=== PATIENT | male | born 1980 | race Caucasian/White ===

== ENCOUNTER 2019-11-10 16:50 | Outpatient (CLI) | payer BC, SELFPAY ==
--- NOTE | ~2019-11-10 | CT_ITS ---
EXAMINATION: CT brain wo con DATE: 11/10/2019 17:11 INDICATION: Headache TECHNIQUE: Computed tomography (CT) of the head was performed without intravenous contrast. The mA wa s adjusted according to patient size. Iterative reconstruction technique was employed. Exam dose: 60 5.33 mGy-cm total exam DLP. COMPARISON: None FINDINGS: No intracranial mass lesion or hemorrhage or cerebrovascular accident is evident. No midlin e shift or mass effect. No subdural or epidural hematoma. Included paranasal sinuses and mastoid air cells are normally developed and aerated. No fracture or bone destruction of the cranial vault. IMPRESSION: No significant abnormality Reviewed, dictated and finalized at Location [facility]. Reviewed, dictated and finalized at location B. IMPRESSION: No significant abnormality
== END 2019-11-10 16:51 | disposition home or self-care (01) ==
PROVIDERS: PCP Family Medicine; Visit Provider Family Medicine
DX: R51.9 Headache, unspecified (principal)
CPT/HCPCS: 70450

== ENCOUNTER 2020-04-17 15:31 | Outpatient (CLI) | payer BC, SELFPAY ==
--- NOTE | ~2020-04-17 | XR_ITS ---
XR abdomen/kub 1V 04/17/2020 16:02 Indication: Left-sided abdomen pain Procedure: KUB Comparison: No prior studies for comparison. Findings: Bowel gas pattern is nonobstructive. There are pelvic phleboliths. No definite renal stones . No acute osseous abnormality. There is levoscoliosis. Impression: 1: Nonobstructive bowel gas pattern. Reviewed, dictated and finalized at location A. [facility] Impression: 1: Nonobstructive bowel gas pattern.
== END 2020-04-17 15:32 | disposition home or self-care (01) ==
PROVIDERS: PCP Family Medicine; Visit Provider Family Medicine
DX: R10.9 Unspecified abdominal pain (principal)
CPT/HCPCS: 74018

== ENCOUNTER 2022-11-12 06:01 | Inpatient (IN) | payer OTHER, SELFPAY ==
[2022-11-12] VITALS (24 sets, daily range): BP systolic 121–159; BP diastolic 57–121; PULSE 65–94; RESP 8–24; TEMP 36.1–36.6; O2SAT 83–97; BMI 58.6
--- NOTE | ~2022-11-12 | XR_ITS ---
EXAMINATION: XR chest 1V portable Exam Date/Time: 11/15/2022 16:58 CDT HISTORY: congestion Comparison: 11/12/2022 x-ray and chest CT. RESULT: Lines, tubes, and devices: None. Lungs and pleura: Low volumes with crowding. Cardiomediastinal silhouette: Stable. Other: No acute osseous or upper abdominal finding. IMPRESSION: No acute cardiopulmonary process. The pulmonary opacities noted in the prior CT are not visible radio graphically. Reviewed, dictated and finalized at location K. IMPRESSION: No acute cardiopulmonary process. The pulmonary opacities noted in the prior CT are not visible radiographically.
--- NOTE | ~2022-11-12 | XR_ITS ---
Clinical Indication: Shortness of breath AP and lateral views of the chest: Comparison: 05/31/2012 Findings: There is an area of focal increased density at the left lung apex region. No other pulmonar y abnormality evident.. Cardiomediastinal silhouette is within normal limits. Bones and soft tissues are unremarkable. Impression: Focal area of increased density left lung apex. Pulmonary nodule is not excluded, possibly measuring up to 1.[address] recommended for further evaluation. Reviewed, dictated and finalized at location M. Impression: Focal area of increased density left lung apex. Pulmonary nodule is not exclude d, possibly measuring up to 1.[address] recommended for further evaluation .
--- NOTE | ~2022-11-12 | CT_ITS ---
EXAMINATION: CT brain wo con INDICATION: Dilated and nonreactive right pupil COMPARISON: 11/12/2022 TECHNIQUE: Standard unenhanced head CT. The dose-length product (DLP) was 605.33 mGy-cm. The mA was a djusted according to patient size. Iterative reconstruction technique was employed. FINDINGS: No intracranial hemorrhage, acute infarction, or abnormal mass lesion. The ventricles are n ormal. No abnormal mass effect or midline shift. The rosen-white matter differentiation is normal. The basal cisterns are patent. The orbits are normal. There is a polyp or mucous retention cyst of the l eft maxillary sinus. IMPRESSION: 1. No acute intracranial abnormality. Reviewed, dictated and finalized at location F.
--- NOTE | ~2022-11-12 | US_ITS ---
EXAMINATION: US renal BI DATE: 11/14/2022 08:52 INDICATION: Acute renal injury TECHNIQUE: Multiple ultrasound grayscale images of the kidneys were obtained. COMPARISON: None. FINDINGS: The right kidney measures 9.6 x 5.4 x 4.9 cm. The left kidney measures 11.9 x 5.8 x 5.8 cm. The kidne ys demonstrate normal echogenicity. There is no hydronephrosis in either kidney. No stones identifie d. The bladder is normal. IMPRESSION: 1. Normal kidneys without hydronephrosis. Reviewed, dictated and finalized at location A.
--- NOTE | ~2022-11-12 | CT_ITS ---
Clinical Indication: Hemoptysis CT Scan of the Chest with Contrast: Technique: Contiguous sections were acquired throughout the chest after intravenous administration of 75 cc of Omnipaque 350. Dose reduction technique was used on this scan by utilizing automated exposu re control and iterative reconstruction technique. The dose-length product (DLP) was 896.60 mGy-cm. Findings: There is no evidence of any significant mediastinal, hilar or axillary lymphadenopathy. Mediastinal s oft tissues and vascular structures appear unremarkable. There is no evidence of pleural or pericardial effusion. There are tree-in-bud opacities and centrilobular nodules, predominantly in the right upper lobe. Images through the upper abdomen reveal no abnormalities. Compression fracture of T12 noted. Impression: Tree-in-bud opacities and centrilobular nodules, predominantly in the right upper lobe, consistent wi th small airways infectious process. T12 compression fracture, somewhat age indeterminate, possibly acute. Reviewed, dictated and finalized at [facility]. Impression: Tree-in-bud opacities and centrilobular nodules, predominantly in the right upp er lobe, consistent with small airways infectious process. T12 compression fracture, somewhat age indeterminate, possibly acute.
--- NOTE | ~2022-11-12 | XR_ITS ---
Portable chest x-ray Comparison: 11/16/2022 Clinical History: CHF Findings: Probable minimal right basilar atelectasis. Left lung clear. Cardiomediastinal silhouette is stable. Bones and soft tissues are unremarkable. Impression: Probable minimal right basilar atelectasis, otherwise clear lungs. Reviewed, dictated and finalized at location . Impression: Probable minimal right basilar atelectasis, otherwise clear lungs.
--- NOTE | ~2022-11-12 | CT_ITS ---
EXAMINATION: CT facial bones wo con DATE: 11/12/2022 15:16 INDICATION: facial swelling, somnolence . TECHNIQUE: Computed tomography (CT) of the facial bones and maxillofacial region was performed withou t intravenous contrast. Automated exposure control and iterative reconstruction technique were employ ed. The dose-length product was 800.04 mGy-cm. COMPARISON: None. FINDINGS: Soft Tissues: No significant superficial soft tissue swelling. Facial bones: No acute fracture. No lytic or blastic process. Eyes: The globes are intact. The soft tissue planes of the orbits are maintained. Paranasal Sinuses: Left maxillary mucosal retention cyst/polyp, the remaining visualized aerated spa veronica are clear. Foreign Bodies: No radiopaque foreign bodies. Other Findings: None. IMPRESSION: No evidence of acute facial bone fracture. No CT evidence of osseous erosion/osteomyelitis Reviewed, dictated and finalized at location K.
--- NOTE | ~2022-11-12 | CT_ITS ---
EXAMINATION: CT brain wo con DATE: 11/12/2022 15:16 INDICATION: facial swelling, somnolence . TECHNIQUE: Computed tomography (CT) of the head was performed without intravenous contrast. The mA wa s adjusted according to patient size. Iterative reconstruction technique was employed. The dose-lengt h product was 681.00 mGy-cm. COMPARISON: None. FINDINGS: No acute intracranial hemorrhage or extra-axial fluid collection. No hydrocephalus, mass, or herniation. No acute ischemic infarct. Unremarkable dural venous sinus attenuation. No acute osseous abnormality. Mucosal thickening and retention cyst/polyp in the left maxillary sinus, the remaining aerated spaces are clear. IMPRESSION: No acute intracranial process. Reviewed, dictated and finalized at location K.
--- NOTE | ~2022-11-12 | XR_ITS ---
XR chest 1V portable DATE: 11/16/2022 11:06 INDICATION: Abnormal arterial blood gases. TECHNIQUE: Portable AP chest on 11/16/2022 at 1105 hours COMPARISON: 11/15/2022 portable AP chest 11/2022 CT chest FINDINGS: Cardiomegaly. Borderline pulmonary vascular congestion/redistribution. Mild infiltrate or a telectasis is suggested in the right lower lung.. IMPRESSION: Limited portable study suggesting cardiomegaly, possible mild congestive change and right lower lung infiltrate or atelectasis Reviewed, dictated and finalized at location A. IMPRESSION: Limited portable study suggesting cardiomegaly, possible mild conge stive change and right lower lung infiltrate or atelectasis
--- NOTE | ~2022-11-12 | CT_ITS ---
EXAMINATION: CTA brain carotid DATE: 11/21/2022 15:40 INDICATION: Right-sided anisocoria. TECHNIQUE: Computed tomographic angiography (CTA) of the head was performed without and with 100 mL O mnipaque-350 intravenous contrast. CTA of the neck was performed with intravenous contrast. Automated exposure control and iterative reconstruction technique were employed. The dose-length product was 1 805.20 mGy-cm. Maximum intensity projection and volume rendered 3D-reconstructions were created by casie coughlin technologist on a separate workstation. COMPARISON: Head CT 11/18/2022 FINDINGS: HEAD CTA: There is no intracranial hemorrhage, acute infarction, or abnormal intracranial mass lesion . The ventricles are normal in size. The orbits are normal. There is a mucous retention cyst in left maxillary sinus. The mastoid air cells are normal. Left vertebral artery is dominant. There is no sig nificant stenosis of basilar artery or the posterior cerebral arteries. There is no significant steno sis of the intracranial internal carotid arteries or anterior or middle cerebral arteries. Anterior c ommunicating arteries are normal. The posterior trachea there is are normal. There is no aneurysm. NECK CTA: There is mild atelectasis bilaterally. There are no pathologically enlarged lymph nodes. Th ere is no significant stenosis of the vertebral arteries. There is minimal plaque in the proximal int ernal carotid arteries. There is 0% stenosis of the proximal right internal carotid artery relative t o normal distal artery lumen diameter (NASCET criteria). There is 0% stenosis of the proximal left in ternal carotid artery relative to normal distal artery lumen diameter. There is mild cervical spondyl osis. IMPRESSION: 1. Normal brain. No aneurysm or significant intracranial arterial stenosis. 2. 0% stenosis of the proximal internal carotid arteries relative to normal distal artery lumen diame ters (NASCET criteria). Reviewed, dictated and finalized at location A. IMPRESSION: 1. Normal brain. No aneurysm or significant intracranial arterial stenosis. 2. 0% stenosis of the proximal internal carotid arteries relative to normal dis savita artery lumen diameters (NASCET criteria).
--- NOTE | 2022-11-12 06:12 | ECG_ITS ---
Measurements Intervals [place] Rate: 80 P: 40 [place]: 182 QRS: -20 QRSD: 112 T: 41 QT: 348 QTc: 403 Interpretive Statements SINUS RHYTHM POOR R-WAVE PROGRESSION NO PREVIOUS ECG AVAILABLE FOR COMPARISON Electronically Signed On 11-12-2022 15:43:33 CDT by Ana Gatica M.D.
[2022-11-12 06:26] LABS: Basophils Percent Auto 0.4 % (0.2-1.2); Eosinophils Absolute Auto 0.2 K/mm3 (0-0.3); Eosinophils Percent Auto 1.5 % (0-4.4); Hematocrit 42.1 % (42.0-52.0); Immature Granulocyte Absolute 0.05 K/mm3 (0.00-0.031); Immature Granulocyte Percent A 0.5 % (0-0.5); Lymphocytes Absolute Auto 1.01 K/mm3 (0.9-3.2); Mean Corpuscular HGB Conc 30.9 g/dl (32-36); Mean Platelet Volume 10.3 fl (7.4-10.4); Monocytes Absolute Auto 0.5 K/mm3 (0.1-0.6); Monocytes Percent Auto 5.3 % (2.6-8.5); Neutrophils Absolute Auto 8.3 K/mm3 (1.3-6.7); Neutrophils Percent Auto 82.3 % (45.5-73.1); Platelet Count Result 229 k/mm3 (150-375); Red Blood Count 4.34 M/mm3 (4.6-6.20); Red Cell Distribution Width 13.5 % (11.5-14.5); White Blood Count 10.1 K/mm3 (4.5-10.0)
[2022-11-12 06:34] LABS: Lactic Acid Reflex 2.3 mmol/L (0.7-2.0)
[2022-11-12 06:36] LABS: Alanine Aminotransferase 32 U/L (6-50); Albumin Level 4.2 g/dL (3.5-5.1); Alkaline Phosphatase 66 U/L (38-126); Anion Gap 7 mmol/L (8-16); Aspartate Amino Transferase 38 U/L (17-59); Bilirubin,Total 0.5 mg/dL (0.2-1.3); Blood Urea Nitrogen 26 mg/dL (9-20); Calcium 9.3 mg/dL (8.4-10.2); Carbon Dioxide 29 mmol/L (22-30); Chloride 102 mmol/L (98-107); Estimated CRCL calculation 72 ml/min; Estimated Glomerular Filt Rate 39; Glucose 157 mg/dL (65-110); Potassium 5.3 mmol/L (3.4-5.0); Sodium 138 mmol/L (137-145)
--- NOTE | 2022-11-12 07:42 | ED.GENADULT ---
HPI - General Adult General Chief complaint: Unspecified Stated complaint: COLD S/S Time Seen by Provider: 11/12/22 07:00 History of Present Illness HPI narrative: This is a 42-year-old male, with past history of hypertension and chronic kidney disease, who presents to the emergency department complaining of noticing bloody mucus on his pillow this morning. The patient states he went to bed in his usual state of health, when he woke this morning he found bloody mucus on his pillow. He also noticed that his eyes were puffy. He has no other complaints today. Related Data Home Medications Medication Instructions Recorded Confirmed aspirin 81 mg tablet,delayed mg 11/12/22 release atorvastatin 20 mg tablet mg 11/12/22 hydroxyzine pamoate 50 mg capsule mg 11/12/22 11/12/22 multivitamin with folic acid 400 tablet PO 11/12/22 mcg tablet (Daily-Vasu (with folic acid)) Allergies Allergy/AdvReac Type Severity Reaction Status Date / Time No Known Allergies Allergy Unverified 08/06/21 14:45 Review of Systems Review of Systems: CONSTITUTIONAL: Denies fever, chills, or sweats. EYES: Bilateral eye swelling denies visual changes, redness, or discharge. ENT: Rhinorrhea, congestion denies sore throat, or otalgia. CARDIOVASCULAR: Denies chest pain, palpitations, or edema. RESPIRATORY: Denies cough or dyspnea. GASTROINTESTINAL: Denies abdominal pain, nausea, vomiting, or diarrhea. GENITOURINARY: Denies dysuria or hematuria. SKIN: Denies rash or itching. MUSCULOSKELETAL: Denies back pain, joint pain, or myalgia. NEUROLOGIC: Denies headache, numbness, dizziness, or weakness. PSYCHIATRIC: Denies anxiety or depression. [facility] Past Medical History Medical History Essential (primary) hypertension History of narcotic addiction Major depressive disorder, recurrent, in remission Migraines Surgical History Surgical History Fracture of left forearm s/p ORIF Family History Family History Mother Diabetes mellitus Hypertension Father Hypertension Cerebrovascular accident Social History Social History Smoking packs per day: 1 Smoking cigarettes per day: 20.0 Years smoked: 14 Smoking pack-years: 14.00 Smoking status: Current every day smoker Tobacco type: cigarettes Second hand tobacco smoke exposure: No Smoking end date: 08/09/12 Alcohol intake: current Substance use: never Substance use type: does not use Other substance usage details: fentanyl last use - 10/31/22 methamphetamine last use - 11/03/22 Lack of Transportation: YES Lack of Food: Sometimes True Current Housing: I Do Not Have Housing Concerned About Future Housing: YES Difficulty Paying Gas/Electric Bills: YES Difficulty Paying for Meds: YES Currently Unemployed: YES Education: Associate Degree Difficulty w/ Childcare or Family Care: No Living arrangements: with family Occupation/Education: occupation Gender identity (if verbalized by the patient): Male Spiritual care concerns: No Exam Narrative: GENERAL: Well-developed, well-nourished, and in no acute distress. HEAD: Normocephalic, atraumatic. EYES: PERRLA and EOMI. edema of the bilateral eyes ENT: Nares clear, no rhinorrhea or epistaxis. Mucous membranes moist. Oropharynx without tonsillar hypertrophy exudate or other lesions. CHEST: Clear to auscultation. No respiratory distress. No wheezes rales or rhonchi HEART: Regular rate and rhythm. No murmur heard. Normal peripheral pulses. ABDOMEN: Soft, nontender, nondistended, normal active bowel sounds. EXTREMITIES: Normal range of motion. Trace bilateral lower extremity edema SKIN: Warm, dry, no rash. NEURO: Alert and oriented x3. Moving all 4 limbs purposefully. PSYCH:
[2022-11-12] MEDS: SODIUM CHLORIDE 0.9% IV 1,000 ML 999 ML IV CONT (07:45)
[2022-11-12 09:23] LABS: Reflex Lactic Acid Yes or No Add Lactic
[2022-11-12 09:38] LABS: Anion Gap 2 mmol/L (8-16); Blood Urea Nitrogen 29 mg/dL (9-20); Calcium 8.8 mg/dL (8.4-10.2); Carbon Dioxide 33 mmol/L (22-30); Chloride 102 mmol/L (98-107); Estimated CRCL calculation 69 ml/min; Estimated Glomerular Filt Rate 37; Glucose 113 mg/dL (65-110); Potassium 5.8 mmol/L (3.4-5.0); Sodium 137 mmol/L (137-145)
[2022-11-12 10:11] LABS: Lactic Acid 0.8 mmol/L (0.7-2.0)
[2022-11-12] MEDS: INSULIN HUMAN REGULAR (*BKC) 100 UNITS/ML 10 UNITS IV PUSH (10:36)
[2022-11-12] MEDS: CALCIUM GLUCONATE 1,000 MG/10 ML VIAL 1000 MG IV PUSH (10:37)
[2022-11-12] MEDS: DEXTROSE 50% 25 GM/50 ML SYRINGE IV PUSH (10:37)
[2022-11-12] MEDS: SODIUM BICARBONATE 8.4% 50 MEQ/50 ML SYRINGE IV PUSH (10:37)
[2022-11-12] MEDS: LABETALOL HCL 100 MG TABLET 200 MG PO ×2 (10:38→23:30)
[2022-11-12] MEDS: amLODIPine BESYLATE 5 MG TABLET 10 MG PO (10:39)
[2022-11-12] MEDS: BUPRENORPHINE HCL (*CRX) 2 MG SUBLINGUAL TABLET 4 MG PO (10:59)
[2022-11-12 11:36] LABS: Appearance Urine Cloudy (Clear); Bacteria Urine None Seen /hpf; Bilirubin Urine Negative (Negative); Blood Urine 1+ (Negative); Color Urine Yellow (Yellow); Glucose Urine UA Negative (Negative); Ketones Urine Negative (Negative); Leukocyte Esterase Ur Trace LEU/UL (Negative); Need Manual Microscopic Need Manual; Nitrate Urine Negative (Negative); Protein Urine Trace mg/dL (Negative); Urobilinogen Urine 0.2 mg/dL (<2.0)
[2022-11-12 11:58] LABS: Specific Grav Ur 1.053 (1.001-1.035); WBC Clumps Urine Present /hpf
[2022-11-12 11:59] LABS: Squamous Epithelial Cell Urine Few /hpf (Few)
[2022-11-12 12:00] LABS: Hyaline Casts Urine Present /lpf
[2022-11-12 12:01] LABS: Add Urine Microscopic? YES
--- NOTE | 2022-11-12 14:40 | PM.IMHP ---
H&P: HPI History of Present Illness Date/Time: 11/12/22 14:40 Chief Complaint: Epistaxis, Somnolence, Facial Swelling Narrative: 42-year-old male presents here facial swelling, somnolence, epistaxis With past medical history of polysubstance abuse, high blood pressure, untreated BRICE. Patient is currently being treated at [facility] for polysubstance abuse: Opiates and alcohol. He has been treated since last Thursday, 11/07. Patient reports that they recently started him on Suboxone, 1st dose was yesterday evening. Patient reports that he woke up in the middle of the night last night with a nose bleed from a bilateral nares. Some mild nausea after nose bleed and blood streaked phlegm. Has felt increasingly groggy since episode. Also noted that he has facial swelling around his eyes upper cheeks. Eyes are reddened with yellow to cream drainage. He denies any itching, tenderness, vision changes to his eyes. He reports history of opiate abuse via pills, snorting, and IVDU (last IV use was years ago). Alcohol use is 1-2 fifths daily. Review of Systems Review of Systems: He denies substance use during his admission at [facility], chest pain, palpitations, shortness of breath, fever, chills, recent illness. All systems reviewed & are unremarkable except as noted in HPI and below PMFSH Past Medical History Medical History (Updated 11/13/22 @ 01:30 by Kizzy Levin APRN) Alcohol abuse Essential (primary) hypertension History of narcotic addiction Major depressive disorder, recurrent, in remission Migraines Obstructive sleep apnea syndrome Surgical History Surgical History Fracture of left forearm s/p ORIF Family History Family History Mother Diabetes mellitus Hypertension Father Hypertension Cerebrovascular accident Social History Social History (Updated 11/13/22 @ 01:31 by Kizzy Levin APRN) Social History: Patient is currently homeless. Previously lived at [place] until he began drinking again and he lost his job. Surrogate decision maker is Missael Del Cid, brother. Full Code. Smoking packs per day: 1 Smoking cigarettes per day: 20.0 Years smoked: 14 Smoking pack-years: 14.00 Smoking status: Current every day smoker Tobacco type: cigarettes Second hand tobacco smoke exposure: No Smoking end date: 08/09/12 Alcohol intake: current Substance use: never Substance use type: does not use Other substance usage details: fentanyl last use - 10/31/22 methamphetamine last use - 11/03/22 Lack of Transportation: YES Lack of Food: Sometimes True Current Housing: I Do Not Have Housing Concerned About Future Housing: YES Difficulty Paying Gas/Electric Bills: YES Difficulty Paying for Meds: YES Currently Unemployed: YES Education: Associate Degree Difficulty w/ Childcare or Family Care: No Living arrangements: with family Occupation/Education: occupation Gender identity (if verbalized by the patient): Male Spiritual care concerns: No Meds Home Medications and Allergies Home Medications Medication Instructions Recorded Confirmed Type amlodipine 10 mg tablet See Rx Instructions .Route 08/06/21 11/12/22 Rx .COMPLEX #90 tabs sertraline 100 mg tablet 150 mg PO DAILY #135 tabs 08/06/21 11/12/22 Rx losartan 100 mg tablet See Rx Instructions .Route 11/22/21 11/12/22 Rx .COMPLEX #90 tabs labetalol 200 mg tablet See Rx Instructions .Route 07/15/22 11/12/22 Rx .COMPLEX #180 tabs buprenorphine 4 mg-naloxone 1 mg 1 film buccal BID 11/12/22 11/12/22 History sublingual film (Suboxone) buprenorphine 8 mg-naloxone 2 mg 1 film buccal PRN PRN cravings 11/12/22 11/12/22 History sublingual film (Suboxone) buspirone 10 mg tablet 10 mg PO BID 11/12/22 11/12/22 History gabapentin 300 mg capsule 300 mg DAILY 11/12/22 11/12/22
[2022-11-12 15:14] LABS: Device ROOM AIR; Fractional Inspired Oxygen 21 %; HCO3 VBG 28.6 mEq/l (24.0-30.0); PCO2 VBG 52.8 mmHg (42.0-48.0); PO2 VBG 32.3 mmHg (35.0-45.0); pH VBG 7.351 (7.300-7.400)
[2022-11-12 18:00] LABS: Alanine Aminotransferase 31 U/L (6-50); Albumin Level 4.1 g/dL (3.5-5.1); Alkaline Phosphatase 66 U/L (38-126); Anion Gap 8 mmol/L (8-16); Aspartate Amino Transferase 38 U/L (17-59); Bilirubin,Total 0.6 mg/dL (0.2-1.3); Blood Urea Nitrogen 29 mg/dL (9-20); Calcium 9.2 mg/dL (8.4-10.2); Carbon Dioxide 28 mmol/L (22-30); Chloride 102 mmol/L (98-107); Estimated CRCL calculation 66 ml/min; Estimated Glomerular Filt Rate 35; Glucose 101 mg/dL (65-110); Potassium 4.7 mmol/L (3.4-5.0); Sodium 138 mmol/L (137-145)
[2022-11-12] MEDS: BUPRENORPHINE/NALOXONE (*CRX) 4 MG/1 MG SL FILM 1 EACH SUBLINGUAL (23:30)
--- NOTE | 2022-11-12 23:32 | PCRCNOTE ---
Pt refused CPAP at this time
[2022-11-13] VITALS (17 sets, daily range): BP systolic 94–158; BP diastolic 48–93; PULSE 60–69; RESP 12–24; TEMP 36.1–36.4; O2SAT 92–98
[2022-11-13 05:10] LABS: Basophils Absolute Auto 0.1 K/mm3 (0.0-0.1); Basophils Percent Auto 0.7 % (0.2-1.2); Eosinophils Absolute Auto 0.4 K/mm3 (0-0.3); Eosinophils Percent Auto 4.7 % (0-4.4); Hematocrit 39.2 % (42.0-52.0); Hemoglobin 11.8 g/dL (14.0-18.0); Immature Granulocyte Absolute 0.03 K/mm3 (0.00-0.031); Immature Granulocyte Percent A 0.4 % (0-0.5); Lymphocytes Absolute Auto 2.93 K/mm3 (0.9-3.2); Lymphocytes Percent Auto 36.5 % (18.3-44.2); Mean Corpuscular HGB Conc 30.1 g/dl (32-36); Mean Corpuscular Hemoglobin 29.8 pg (26-34); Mean Platelet Volume 10.8 fl (7.4-10.4); Monocytes Percent Auto 12.6 % (2.6-8.5); Neutrophils Absolute Auto 3.6 K/mm3 (1.3-6.7); Neutrophils Percent Auto 45.1 % (45.5-73.1); Platelet Count Result 231 k/mm3 (150-375); Red Blood Count 3.96 M/mm3 (4.6-6.20); Red Cell Distribution Width 13.7 % (11.5-14.5)
[2022-11-13 05:23] LABS: Anion Gap 5 mmol/L (8-16); Blood Urea Nitrogen 33 mg/dL (9-20); Carbon Dioxide 31 mmol/L (22-30); Chloride 101 mmol/L (98-107); Estimated CRCL calculation 60 ml/min; Estimated Glomerular Filt Rate 31; Glucose 107 mg/dL (65-110); Potassium 4.6 mmol/L (3.4-5.0); Sodium 137 mmol/L (137-145)
[2022-11-13 05:46] LABS: Influenza A QL RT-PCR Negative (Negative); Influenza B QL RT-PCR Negative (Negative); RSV RNA, RT-PCR Negative (Negative); SARS-CoV-2 RNA PCR Negative (Negative)
[2022-11-13] MEDS: ENOXAPARIN 40 MG/0.4 ML SYRINGE SUB-Q (09:00)
[2022-11-13] MEDS: GABAPENTIN 300 MG CAPSULE PO (09:00)
[2022-11-13] MEDS: MULTIVITAMINS THERAPEUTIC TAB (*BKC) 1 TABLET PO (09:00)
[2022-11-13] MEDS: PANTOPRAZOLE SODIUM IV 40 MG VIAL IV PUSH ×2 (09:00→21:13)
[2022-11-13] MEDS: BUPRENORPHINE/NALOXONE (*CRX) 4 MG/1 MG SL FILM 1 EACH SUBLINGUAL ×2 (09:00→17:34)
[2022-11-13] MEDS: LABETALOL HCL 100 MG TABLET 200 MG PO (09:00)
[2022-11-13] MEDS: SERTRALINE HCL 50 MG TABLET 150 MG PO (09:00)
[2022-11-13] MEDS: busPIRone HCL 10 MG TABLET PO ×2 (09:01→17:34)
[2022-11-13] MEDS: LOSARTAN POTASSIUM 100 MG TABLET PO (09:01)
[2022-11-13] MEDS: amLODIPine BESYLATE 5 MG TABLET 10 MG PO (09:01)
--- NOTE | 2022-11-13 14:00 | PM.IMPN ---
Progress Note: A&P Assessment and Plan (1) CKD (chronic kidney disease): Code(s): N18.9 - Chronic kidney disease, unspecified Status: Acute (2) Polysubstance abuse: Code(s): F19.10 - Other psychoactive substance abuse, uncomplicated Status: Acute (3) Obstructive sleep apnea syndrome: Code(s): G47.33 - Obstructive sleep apnea (adult) (pediatric) Status: Acute (4) Hyperkalemia: Code(s): E87.5 - Hyperkalemia Status: Acute (5) Facial swelling: Code(s): R22.0 - Localized swelling, mass and lump, head Status: Acute Plan Patient was at [facility] getting treatment for substance abuse. Which include opiates and alcohol. He was recently started on Suboxone when he woke up in the middle night he had bleeding from his nose noticed to have blood-streaked phlegm. Is also noted to have some facial swelling and and was sent to the ED for evaluation. He has history of opiate abuse feels snorting and IV drug use. Last IV use was years ago. He drinks alcohol 1 to 2 5th daily workup revealed creatinine of 1.9 and hyperkalemia which was treated in the ER. Also had lactic acidosis 2.3. UA with WBC clumps. He has underlying BRICE and uses CPAP. CT facial bones were negative CT brain was negative. Chest x-ray showed focal area of increased density left lung apex. Pulmonary nodule is not excluded possibly measuring to [address] chest shows tree-in-bud opacities and centrilobular nodules predominantly in right upper lobe consistent with small airways infectious process. T12 compression fractures somewhat he is indeterminate possibly acute. He reports no back pain. CT head reveals mucosal thickening and retention cyst/polyp in the left maxillary sinus. Creatinine continues to increase. His baseline creatinine up to last year was 1.4. Admission creatinine of 1.9 worsened to 2.3 will start gentle fluid. Urine studies. Hold losartan start IV antibiotics to cover for pneumonia. Renal consultation ultrasound kidneys. UTI ceftriaxone negative for influenza COVID and RSV. DVT prophylaxis with Lovenox Subjective Date/time seen: 11/13/22 14:00 Interval history: Patient was at [facility] getting treatment for substance abuse. Which include opiates and alcohol. He was recently started on Suboxone when he woke up in the middle night he had bleeding from his nose noticed to have blood-streaked phlegm. Is also noted to have some facial swelling and and was sent to the ED for evaluation. He has history of opiate abuse feels snorting and IV drug use. Last IV use was years ago. He drinks alcohol 1 to 2 5th daily workup revealed creatinine of 1.9 and hyperkalemia which was treated in the ER. Also had lactic acidosis 2.3. UA with WBC clumps. He has underlying BRICE and uses CPAP. CT facial bones were negative CT brain was negative. Chest x-ray showed focal area of increased density left lung apex. Pulmonary nodule is not excluded possibly measuring to [address] chest shows tree-in-bud opacities and centrilobular nodules predominantly in right upper lobe consistent with small airways infectious process. T12 compression fractures somewhat he is indeterminate possibly acute. He reports no back pain. CT head reveals mucosal thickening and retention cyst/polyp in the left maxillary sinus. Creatinine continues to increase. His baseline creatinine up to last year was 1.4. Admission creatinine of 1.9 worsened to 2.3 will start gentle fluid. Urine studies. Start IV antibiotics to cover for pneumonia. Renal consultation ultrasound kidneys. UTI ceftriaxone negative for influenza COVID and RSV. Review of Systems Review of Systems: All systems reviewed & are unremarkable except as noted in HPI and below Exam Narrative: GENERAL: Well-developed, well-nourished, and in no acute distress. HEAD: Normocephalic, atraumatic. EYES: PERRLA and EOMI. edema of the bilateral
--- NOTE | 2022-11-13 14:40 | PM.CNNEP ---
Assessment and Plan Assessment and plan (1) ANIKET (acute kidney injury): Code(s): N17.9 - Acute kidney failure, unspecified Status: Acute Assessment and Plan: ANIKET versus progression of chronic kidney disease(?) creatinine 1.9mg/dl on admission -- up to 2.3mg/dl currently noted mild hyperkalemia as well on admission etiology? agree with holding losartan trial of IVFs (but no improvement as of yet) follow-up on urine studies and renal ultrasound does have a history of urethral stricture and obstructrion in the past UA noted - protein and blood present - r/o UTI follow trend of repeat labs and UOP (2) Stage 3a chronic kidney disease: Code(s): N18.31 - Chronic kidney disease, stage 3a Status: Chronic Assessment and Plan: creatinine running around 1.4 - 1.7mg/dl about a year ago though to be secondary to hypertension and obesity however, his known history of polysubstance abuse may have played a role (3) Hyperkalemia: Code(s): E87.5 - Hyperkalemia Status: Acute Assessment and Plan: presumably related to worsening creatinine with ARB use holding losartan s/p medical management follow trend of K+ (4) Pneumonia: Code(s): J18.9 - Pneumonia, unspecified organism Status: Acute Assessment and Plan: suggestion by CXR CT of chest with tree-in-bud opacities and centrilobular nodules, predominantly in the right upper lobe, consistent with small airways infectious process on antibiotics (5) Essential (primary) hypertension: Code(s): I10 - Essential (primary) hypertension Status: Chronic Assessment and Plan: elevated but reasonable control holding losartan on amlodipine and labetalol PRN medications follow trend of hemodynamics (6) Polysubstance abuse: Code(s): F19.10 - Other psychoactive substance abuse, uncomplicated Status: Chronic Assessment and Plan: playing a role with #1(?) supportive therapy Discussed case with Dr. Mancera. I will continue follow the patient with you while he remains hospitalized and make further recommendations as needed. Thank you for allowing me to participate in the care of this patient. History of Present Illness Reason for Consult Consult date: 11/13/22 Reason for consult: acute renal failure (on chronic kidney disease) Chief Complaint Chief complaint: HYPERKALEMIA,ANIKET History of Present Illness Narrative: The patient is a 42-year-old male with a past medical history as outlined below who presented to [facility] Emergency room due to concerns of facial swelling and lethargy. The patient was being treated at a rehab facility for his known history of polysubstance abuse which includes opioids and alcohol. He has been in the rehabilitation facility since last week. He was recently started on Suboxone for treatment of his polysubstance abuse. Apparently, the night before admission, he woke up in the middle night with epistaxis from both his nares. This seemed to resolve on its own but he had some mild nausea when this occurred and some blood-streaked sputum. Since that time, he has felt increasingly groggy and fatigue. He also reports increased facial swelling particularly around his eyes and upper cheeks. There was apparently a yellowish discharge from the corner of his eyes as well. Given these constellation of symptoms and issues, he was transferred to the emergency room for further assessment. Workup and evaluation emergency room demonstrated the patient be hemodynamically stable if not a bit hypertensive but in no acute distress. Routine blood tests ere significant for an elevated potassium level in association with a elevated BUN and creatinine. His BUN and creatinine was somewhat higher than what is on record on [facility] he has never had any issues or problems with hyperkalemia at that the patient is aware. He subsequently receiv
--- NOTE | 2022-11-13 14:40 | P.CONNP_ITS ---
Assessment and Plan Assessment and plan (1) ANIKET (acute kidney injury): Code(s): N17.9 - Acute kidney failure, unspecified Status: Acute Assessment and Plan: * ANIKET versus progression of chronic kidney disease(?) * creatinine 1.9mg/dl on admission -- up to 2.3mg/dl currently * noted mild hyperkalemia as well on admission * etiology? * agree with holding losartan * trial of IVFs (but no improvement as of yet) * follow-up on urine studies and renal ultrasound * does have a history of urethral stricture and obstructrion in the past * UA noted - protein and blood present - r/o UTI * follow trend of repeat labs and UOP (2) Stage 3a chronic kidney disease: Code(s): N18.31 - Chronic kidney disease, stage 3a Status: Chronic Assessment and Plan: * creatinine running around 1.4 - 1.7mg/dl about a year ago * though to be secondary to hypertension and obesity * however, his known history of polysubstance abuse may have played a role (3) Hyperkalemia: Code(s): E87.5 - Hyperkalemia Status: Acute Assessment and Plan: * presumably related to worsening creatinine with ARB use * holding losartan * s/p medical management * follow trend of K+ (4) Pneumonia: Code(s): J18.9 - Pneumonia, unspecified organism Status: Acute Assessment and Plan: * suggestion by CXR * CT of chest with tree-in-bud opacities and centrilobular nodules, predominantly in the right upper lobe, consistent with small airways infectious process * on antibiotics (5) Essential (primary) hypertension: Code(s): I10 - Essential (primary) hypertension Status: Chronic Assessment and Plan: * elevated but reasonable control * holding losartan * on amlodipine and labetalol * PRN medications * follow trend of hemodynamics (6) Polysubstance abuse: Code(s): F19.10 - Other psychoactive substance abuse, uncomplicated Status: Chronic Assessment and Plan: * playing a role with #1(?) * supportive therapy Discussed case with Dr. Mancera. I will continue follow the patient with you while he remains hospitalized and make further recommendations as needed. Thank you for allowing me to participate in the care of this patient. History of Present Illness Reason for Consult Consult date: 11/13/22 Reason for consult: acute renal failure (on chronic kidney disease) Chief Complaint Chief complaint: HYPERKALEMIA,ANIKET History of Present Illness Narrative: The patient is a 42-year-old male with a past medical history as outlined below who presented to [facility] Emergency room due to concerns of facial swelling and lethargy. The patient was being treated at a rehab facility for his known history of polysubstance abuse which includes opioids and alcohol. He has been in the rehabilitation facility since last week. He was recently started on Suboxone for treatment of his polysubstance abuse. Apparently, the night before admission, he woke up in the middle night with epistaxis from both his nares. This seemed to resolve on its own but he had some mild nausea when this occurred and some blood-streaked sputum. Since that time, he has felt increasingly groggy and fatigue. He also reports increased facial swelling particularly around his eyes and upper cheeks. There was apparently a yellowish discharge from the corner of his eyes as well. Given these constellation of symptoms and issues, he was transferred to the emergency room for further assessment. Workup and evaluation emergen
[2022-11-13] MEDS: SODIUM CHLORIDE 0.9% IV 1,000 ML 100 ML IV CONT ×2 (15:20→18:42)
[2022-11-13] MEDS: AZITHROMYCIN 500 MG/NS 250 ML 500 MG/250 ML BAG 250 MG IVPB (15:56)
--- NOTE | 2022-11-13 23:48 | PC.NURSE ---
2029 Kizzy LANCE notified of BP. Continue to hold labetalol as ordered. ivf decreased to 100mls/hr 2334 Kizzy LANCE notified of BP. Continue to hold labetalol as ordered.
[2022-11-14] VITALS (19 sets, daily range): BP systolic 106–155; BP diastolic 52–100; PULSE 61–85; RESP 16–22; TEMP 36.1–36.8; O2SAT 90–98
[2022-11-14] MEDS: SODIUM CHLORIDE 0.9% IV 1,000 ML 100 ML IV CONT (02:17)
[2022-11-14 02:25] LABS: Urea Random Urine 177 MG/DL
[2022-11-14 02:33] LABS: Appearance Urine Cloudy (Clear); Bacteria Urine None Seen /hpf; Bilirubin Urine 1+ (Negative); Blood Urine 2+ (Negative); Color Urine Dark Yellow (Yellow); Glucose Urine UA Negative (Negative); Hyaline Casts Urine Present /lpf; Ketones Urine Trace mg/dL (Negative); Leukocyte Esterase Ur 1+ LEU/UL (NEGATIVE); Mucus Urine Present /lpf; Nitrate Urine Negative (Negative); Non Pathogenic Casts >20; Protein Urine 1+ mg/dL (Negative); Specific Grav Ur 1.026 (1.001-1.035); Squamous Epithelial Cell Urine Few /hpf (Few); Urobilinogen Urine 0.2 mg/dL (<2.0); WBC Urine 21-50 /hpf (0-3)
[2022-11-14 02:34] LABS: Add Urine Microscopic? YES
--- NOTE | 2022-11-14 04:40 | PC.NURSE ---
0425 Patient unable to void. Bladder scan completed with 40mls noted. 0440 Dr Kelly notified of decreased urine output. Orders received.
[2022-11-14 04:42] LABS: Sodium Urine Random 9 meq/L
[2022-11-14] MEDS: SODIUM CHLORIDE 0.9% IV 1,000 ML 999 ML IV CONT (04:53)
[2022-11-14 05:01] LABS: Creatinine Urine 358.8 mg/dL
[2022-11-14 05:04] LABS: Basophils Percent Auto 0.4 % (0.2-1.2); Eosinophils Absolute Auto 0.4 K/mm3 (0-0.3); Eosinophils Percent Auto 3.9 % (0-4.4); Immature Granulocyte Absolute 0.02 K/mm3 (0.00-0.031); Immature Granulocyte Percent A 0.2 % (0-0.5); Lymphocytes Percent Auto 21.8 % (18.3-44.2); Mean Corpuscular Hemoglobin 29.8 pg (26-34); Mean Corpuscular Volume 99.3 fl (80-100); Mean Platelet Volume 11.1 fl (7.4-10.4); Monocytes Percent Auto 11.3 % (2.6-8.5); Neutrophils Absolute Auto 5.7 K/mm3 (1.3-6.7); Neutrophils Percent Auto 62.4 % (45.5-73.1); Platelet Count Result 238 k/mm3 (150-375); Red Blood Count 4.03 M/mm3 (4.6-6.20); Red Cell Distribution Width 13.5 % (11.5-14.5); White Blood Count 9.2 K/mm3 (4.5-10.0)
[2022-11-14 05:16] LABS: Alanine Aminotransferase 26 U/L (6-50); Alkaline Phosphatase 62 U/L (38-126); Anion Gap 9 mmol/L (8-16); Aspartate Amino Transferase 45 U/L (17-59); Bilirubin,Total 0.8 mg/dL (0.2-1.3); Blood Urea Nitrogen 43 mg/dL (9-20); Calcium 8.6 mg/dL (8.4-10.2); Carbon Dioxide 26 mmol/L (22-30); Chloride 100 mmol/L (98-107); Estimated CRCL calculation 41 ml/min; Estimated Glomerular Filt Rate 19; Glucose 107 mg/dL (65-110); Magnesium 2.2 mg/dL (1.6-2.3); Potassium 5.2 mmol/L (3.4-5.0); Sodium 135 mmol/L (137-145)
[2022-11-14] MEDS: MULTIVITAMINS THERAPEUTIC TAB (*BKC) 1 TABLET PO (08:50)
[2022-11-14] MEDS: LABETALOL HCL 100 MG TABLET 200 MG PO ×2 (08:50→21:08)
[2022-11-14] MEDS: SERTRALINE HCL 50 MG TABLET 150 MG PO (08:50)
[2022-11-14] MEDS: PANTOPRAZOLE SODIUM IV 40 MG VIAL IV PUSH ×2 (08:50→21:09)
[2022-11-14] MEDS: BUPRENORPHINE/NALOXONE (*CRX) 4 MG/1 MG SL FILM 1 EACH SUBLINGUAL ×2 (08:51→16:38)
[2022-11-14] MEDS: GABAPENTIN 300 MG CAPSULE PO (08:51)
[2022-11-14] MEDS: busPIRone HCL 10 MG TABLET PO ×2 (08:51→16:38)
[2022-11-14] MEDS: amLODIPine BESYLATE 5 MG TABLET 10 MG PO (08:51)
[2022-11-14] MEDS: AZITHROMYCIN 500 MG/NS 250 ML 500 MG/250 ML BAG 250 MG IVPB (09:31)
[2022-11-14] MEDS: HEPARIN SODIUM 5,000 UNITS/ML VIAL 5000 UNITS SUB-Q ×2 (09:31→21:09)
[2022-11-14 09:39] LABS: Creatinine Urine 222.2 mg/dL; Total Protein Urine Random 18 mg/dL; Ur Ttl Prot Creatinine Ratio 0.08 mg/mg (0-0.20)
[2022-11-14 10:39] LABS: Eosinophil Urine None Seen % (None Seen); Urine Eos QC 2nd Tech Confirmed
--- NOTE | 2022-11-14 11:11 | PM.PNNEP ---
Progress Note: A&P Assessment and Plan (1) ANIKET (acute kidney injury): Code(s): N17.9 - Acute kidney failure, unspecified Status: Acute Assessment and Plan: as noted by recent labs creatinine 1.9mg/dl on admission -- up to 3.5mg/dl noted mild hyperkalemia as well etiology? evaluation to date: renal ultrasound without obstruction urine electrolytes prerenal urine eosinophils negative CPK not done -- will reorder follow-up on serologies did receive contrast (CTA chest) on 11/14/22) -- but creatinine already rising before this agree with holding losartan trial of IVFs (but no improvement as of yet) UA noted - protein and blood present - UTI ruled out by negative urine culture follow trend of repeat labs and UOP (2) Stage 3a chronic kidney disease: Code(s): N18.31 - Chronic kidney disease, stage 3a Status: Chronic Assessment and Plan: creatinine running around 1.4 - 1.7mg/dl about a year ago though to be secondary to hypertension and obesity however, his known history of polysubstance abuse may have played a role (3) Hyperkalemia: Code(s): E87.5 - Hyperkalemia Status: Acute Assessment and Plan: presumably related to worsening creatinine with ARB use holding losartan s/p medical management follow trend of K+ (4) Pneumonia: Code(s): J18.9 - Pneumonia, unspecified organism Status: Acute Assessment and Plan: suggestion by CXR CT of chest with tree-in-bud opacities and centrilobular nodules, predominantly in the right upper lobe, consistent with small airways infectious process on antibiotics (5) Essential (primary) hypertension: Code(s): I10 - Essential (primary) hypertension Status: Chronic Assessment and Plan: elevated but reasonable control holding losartan on amlodipine and labetalol PRN medications follow trend of hemodynamics (6) Polysubstance abuse: Code(s): F19.10 - Other psychoactive substance abuse, uncomplicated Status: Chronic Assessment and Plan: playing a role with #1(?) supportive therapy Will continue to follow Subjective Date/time seen: 11/14/22 11:11 Interval history: Follow-up for acute kidney injury/acute renal failure on chronic kidney disease. Creatinine has significantly worsened in the last 24 hours; patient states he is still urinating but unclear how much since I/Os are not complete; no apparent distress noted; sleeping comfortably when seen prior to me waking him up; stable hemodynamics noted; no other issues/events overnight or earlier this morning. Exam Narrative: General: large malein NAD Heart: normal S1 and S2; no rub Lungs: clear to auscultation Abdomen: soft, nontender, nondistended, positive bowel sounds Extremities: no cyanosis or clubbing; no edema Skin: warm and dry Objective Data Vital Signs Vital Signs: Vital Signs Temp Pulse Resp BP Pulse Ox O2 Del Method 11/14/22 11:00 98.2 F 62 19 124/52 L 94 11/14/22 08:00 Room Air 11/14/22 08:00 85 11/14/22 08:50 75 11/14/22 08:00 98.2 F 79 21 H 155/92 H 94 11/14/22 06:00 64 11/14/22 04:00 Room Air 11/14/22 04:00 61 11/14/22 03:59 97.6 F 66 20 138/74 97 11/13/22 23:25 67 12 98 11/13/22 22:25 98 Room Air 11/14/22 02:00 74 11/13/22 23:54 98 Room Air 11/13/22 23:54 65 11/13/22 23:40 97 F L 67 18 145/82 H 98 11/13/22 22:00 62 11/13/22 20:00 Room Air 11/13/22 20:00 62 11/13/22 20:00 97.2 F L 67 20 132/93 H 97 11/13/22 18:00 66 11/13/22 18:13 96.9 F L 65 20 94/48 L 95 11/13/22 16:00 97.4 F L 64 24 H 158/75 H 93 11/13/22 16:00 Room Air 11/13/22 16:00 60 Intake/Output Intake/Output: Intake & Output 11/11/22 11/12/22 11/13/22 11/14/22 23:59 23:59 23:59 23:59 Intake Tot
--- NOTE | 2022-11-14 11:11 | P.PNNP_ITS ---
Progress Note: A&P Assessment and Plan (1) ANIKET (acute kidney injury): Code(s): N17.9 - Acute kidney failure, unspecified Status: Acute Assessment and Plan: * as noted by recent labs * creatinine 1.9mg/dl on admission -- up to 3.5mg/dl * noted mild hyperkalemia as well * etiology? * evaluation to date: * renal ultrasound without obstruction * urine electrolytes prerenal * urine eosinophils negative * CPK not done -- will reorder * follow-up on serologies * did receive contrast (CTA chest) on 11/14/22) -- but creatinine already rising before this * agree with holding losartan * trial of IVFs (but no improvement as of yet) * UA noted - protein and blood present - UTI ruled out by negative urine culture * follow trend of repeat labs and UOP (2) Stage 3a chronic kidney disease: Code(s): N18.31 - Chronic kidney disease, stage 3a Status: Chronic Assessment and Plan: * creatinine running around 1.4 - 1.7mg/dl about a year ago * though to be secondary to hypertension and obesity * however, his known history of polysubstance abuse may have played a role (3) Hyperkalemia: Code(s): E87.5 - Hyperkalemia Status: Acute Assessment and Plan: * presumably related to worsening creatinine with ARB use * holding losartan * s/p medical management * follow trend of K+ (4) Pneumonia: Code(s): J18.9 - Pneumonia, unspecified organism Status: Acute Assessment and Plan: * suggestion by CXR * CT of chest with tree-in-bud opacities and centrilobular nodules, predominantly in the right upper lobe, consistent with small airways infectious process * on antibiotics (5) Essential (primary) hypertension: Code(s): I10 - Essential (primary) hypertension Status: Chronic Assessment and Plan: * elevated but reasonable control * holding losartan * on amlodipine and labetalol * PRN medications * follow trend of hemodynamics (6) Polysubstance abuse: Code(s): F19.10 - Other psychoactive substance abuse, uncomplicated Status: Chronic Assessment and Plan: * playing a role with #1(?) * supportive therapy Will continue to follow Subjective Date/time seen: 11/14/22 11:11 Interval history: Follow-up for acute kidney injury/acute renal failure on chronic kidney disease. Creatinine has significantly worsened in the last 24 hours; patient states he is still urinating but unclear how much since I/Os are not complete; no apparent distress noted; sleeping comfortably when seen prior to me waking him up; stable hemodynamics noted; no other issues/events overnight or earlier this morning. Exam Narrative: General: large malein NAD Heart: normal S1 and S2; no rub Lungs: clear to auscultation Abdomen: soft, nontender, nondistended, positive bowel sounds Extremities: no cyanosis or clubbing; no edema Skin: warm and dry Objective Data Vital Signs Vital Signs: Vital Signs Temp Pulse Resp BP Pulse Ox O2 Del Method 11/14/22 11:00 98.2 F 62 19 124/52 L 94 11/14/22 08:00 Room Air 11/14/22 08:00 85 11/14/22 08:50 75 11/14/22 08:00 98.2 F 79 21 H 155/92 H 94 11/14/22 06:00 64 11/14/22 04:00 Room Air 11/14/22 04:00 61 11/14/22 03:59 97.6 F 6
[2022-11-14] MEDS: ACETAMINOPHEN 500 MG TABLET 1000 MG PO (11:59)
[2022-11-14] MEDS: SODIUM ZIRCONIUM CYCLOSILICATE 10 GM POWD.PACK PO (11:59)
--- NOTE | 2022-11-14 13:46 | PM.IMPN ---
Progress Note: A&P Assessment and Plan (1) CKD (chronic kidney disease): Code(s): N18.9 - Chronic kidney disease, unspecified Status: Acute (2) Polysubstance abuse: Code(s): F19.10 - Other psychoactive substance abuse, uncomplicated Status: Chronic (3) Obstructive sleep apnea syndrome: Code(s): G47.33 - Obstructive sleep apnea (adult) (pediatric) Status: Acute (4) Hyperkalemia: Code(s): E87.5 - Hyperkalemia Status: Acute (5) Facial swelling: Code(s): R22.0 - Localized swelling, mass and lump, head Status: Acute Plan Patient was at [facility] getting treatment for substance abuse. Which include opiates and alcohol. He was recently started on Suboxone when he woke up in the middle night he had bleeding from his nose noticed to have blood-streaked phlegm. Is also noted to have some facial swelling and and was sent to the ED for evaluation. He has history of opiate abuse feels snorting and IV drug use. Last IV use was years ago. He drinks alcohol 1 to 2 5th daily workup revealed creatinine of 1.9 and hyperkalemia which was treated in the ER. Also had lactic acidosis 2.3. UA with WBC clumps. He has underlying BRICE and uses CPAP. CT facial bones were negative CT brain was negative. Chest x-ray showed focal area of increased density left lung apex. Pulmonary nodule is not excluded possibly measuring to [address] chest shows tree-in-bud opacities and centrilobular nodules predominantly in right upper lobe consistent with small airways infectious process. T12 compression fractures somewhat he is indeterminate possibly acute. He reports no back pain. CT head reveals mucosal thickening and retention cyst/polyp in the left maxillary sinus. Creatinine continues to increase. His baseline creatinine up to last year was 1.4. Admission creatinine of 1.9 worsened to 2.3 will start gentle fluid. Urine studies pre renal. Hold losartan start IV antibiotics to cover for pneumonia. Renal consultation ultrasound kidneys which came back negative for hydronephrosis. UTI ceftriaxone. Negative for influenza COVID and RSV. DVT prophylaxis with Lovenox. Creatinine continues to worsen to 3.5 did receive contrast on 11/12/2022. Continue to monitor volume status and urine output. Discussed with director of hospitality Subjective Date/time seen: 11/14/22 13:46 Interval history: Patient was at [facility] getting treatment for substance abuse. Which include opiates and alcohol. He was recently started on Suboxone when he woke up in the middle night he had bleeding from his nose noticed to have blood-streaked phlegm. Is also noted to have some facial swelling and and was sent to the ED for evaluation. He has history of opiate abuse feels snorting and IV drug use. Last IV use was years ago. He drinks alcohol 1 to 2 5th daily workup revealed creatinine of 1.9 and hyperkalemia which was treated in the ER. Also had lactic acidosis 2.3. UA with WBC clumps. He has underlying BRICE and uses CPAP. CT facial bones were negative CT brain was negative. Chest x-ray showed focal area of increased density left lung apex. Pulmonary nodule is not excluded possibly measuring to [address] chest shows tree-in-bud opacities and centrilobular nodules predominantly in right upper lobe consistent with small airways infectious process. T12 compression fractures somewhat he is indeterminate possibly acute. He reports no back pain. CT head reveals mucosal thickening and retention cyst/polyp in the left maxillary sinus. Creatinine continues to increase. His baseline creatinine up to last year was 1.4. Admission creatinine of 1.9 worsened to 2.3 will start gentle fluid. Urine studies. Start IV antibiotics to cover for pneumonia. Renal consultation ultrasound kidneys. UTI ceftriaxone negative for influenza COVID and RSV. 11/14/2022: No overnight events. Creatinine continues to worsen.
[2022-11-15] VITALS (23 sets, daily range): BP systolic 120–158; BP diastolic 62–82; PULSE 61–81; RESP 12–24; TEMP 36.4–37.2; O2SAT 93–100
[2022-11-15] MEDS: SODIUM CHLORIDE 0.9% IV 1,000 ML 75 ML IV CONT (03:33)
[2022-11-15 05:10] LABS: Basophils Percent Auto 0.4 % (0.2-1.2); Eosinophils Absolute Auto 0.3 K/mm3 (0-0.3); Eosinophils Percent Auto 4.5 % (0-4.4); Hematocrit 35.7 % (42.0-52.0); Hemoglobin 11.2 g/dL (14.0-18.0); Immature Granulocyte Absolute 0.02 K/mm3 (0.00-0.031); Immature Granulocyte Percent A 0.3 % (0-0.5); Lymphocytes Absolute Auto 2.29 K/mm3 (0.9-3.2); Lymphocytes Percent Auto 32.3 % (18.3-44.2); Mean Corpuscular HGB Conc 31.4 g/dl (32-36); Mean Corpuscular Hemoglobin 30.3 pg (26-34); Mean Corpuscular Volume 96.5 fl (80-100); Mean Platelet Volume 10.7 fl (7.4-10.4); Monocytes Absolute Auto 0.8 K/mm3 (0.1-0.6); Monocytes Percent Auto 11.7 % (2.6-8.5); Neutrophils Absolute Auto 3.6 K/mm3 (1.3-6.7); Neutrophils Percent Auto 50.8 % (45.5-73.1); Platelet Count Result 225 k/mm3 (150-375); Red Cell Distribution Width 13.3 % (11.5-14.5); White Blood Count 7.1 K/mm3 (4.5-10.0)
[2022-11-15 05:26] LABS: Creatine Kinase 902 U/L (55-170)
[2022-11-15 05:28] LABS: Alanine Aminotransferase 27 U/L (6-50); Albumin Level 3.9 g/dL (3.5-5.1); Alkaline Phosphatase 64 U/L (38-126); Anion Gap 7 mmol/L (8-16); Aspartate Amino Transferase 65 U/L (17-59); Bilirubin,Total 0.7 mg/dL (0.2-1.3); Blood Urea Nitrogen 50 mg/dL (9-20); Calcium 8.4 mg/dL (8.4-10.2); Carbon Dioxide 27 mmol/L (22-30); Chloride 99 mmol/L (98-107); Estimated CRCL calculation 42 ml/min; Estimated Glomerular Filt Rate 20; Glucose 91 mg/dL (65-110); Magnesium 2.2 mg/dL (1.6-2.3); Potassium 4.7 mmol/L (3.4-5.0); Sodium 133 mmol/L (137-145)
[2022-11-15 05:33] LABS: Complement C3 119 mg/dL (88-165)
[2022-11-15] MEDS: PANTOPRAZOLE SODIUM IV 40 MG VIAL IV PUSH ×2 (09:06→21:36)
[2022-11-15] MEDS: GABAPENTIN 300 MG CAPSULE PO (09:06)
[2022-11-15] MEDS: MULTIVITAMINS THERAPEUTIC TAB (*BKC) 1 TABLET PO (09:06)
[2022-11-15] MEDS: LABETALOL HCL 100 MG TABLET 200 MG PO ×2 (09:06→21:36)
[2022-11-15] MEDS: HEPARIN SODIUM 5,000 UNITS/ML VIAL 5000 UNITS SUB-Q ×2 (09:06→21:37)
[2022-11-15] MEDS: SERTRALINE HCL 50 MG TABLET 150 MG PO (09:06)
[2022-11-15] MEDS: busPIRone HCL 10 MG TABLET PO (09:07)
[2022-11-15] MEDS: amLODIPine BESYLATE 5 MG TABLET 10 MG PO (09:07)
[2022-11-15] MEDS: BUPRENORPHINE/NALOXONE (*CRX) 4 MG/1 MG SL FILM 1 EACH SUBLINGUAL (09:07)
[2022-11-15] MEDS: AZITHROMYCIN 500 MG/NS 250 ML 500 MG/250 ML BAG 250 MG IVPB (12:32)
--- NOTE | 2022-11-15 12:38 | PM.IMPN ---
Progress Note: A&P Assessment and Plan (1) CKD (chronic kidney disease): Code(s): N18.9 - Chronic kidney disease, unspecified Status: Acute (2) Polysubstance abuse: Code(s): F19.10 - Other psychoactive substance abuse, uncomplicated Status: Chronic (3) Obstructive sleep apnea syndrome: Code(s): G47.33 - Obstructive sleep apnea (adult) (pediatric) Status: Acute (4) Hyperkalemia: Code(s): E87.5 - Hyperkalemia Status: Acute (5) Facial swelling: Code(s): R22.0 - Localized swelling, mass and lump, head Status: Acute Plan Patient was at [facility] getting treatment for substance abuse. Which include opiates and alcohol. He was recently started on Suboxone when he woke up in the middle night he had bleeding from his nose noticed to have blood-streaked phlegm. Is also noted to have some facial swelling and and was sent to the ED for evaluation. He has history of opiate abuse feels snorting and IV drug use. Last IV use was years ago. He drinks alcohol 1 to 2 5th daily workup revealed creatinine of 1.9 and hyperkalemia which was treated in the ER. Also had lactic acidosis 2.3. UA with WBC clumps. He has underlying BRICE and uses CPAP. CT facial bones were negative CT brain was negative. Chest x-ray showed focal area of increased density left lung apex. Pulmonary nodule is not excluded possibly measuring to [address] chest shows tree-in-bud opacities and centrilobular nodules predominantly in right upper lobe consistent with small airways infectious process. T12 compression fractures somewhat he is indeterminate possibly acute. He reports no back pain. CT head reveals mucosal thickening and retention cyst/polyp in the left maxillary sinus. Creatinine continues to increase. His baseline creatinine up to last year was 1.4. Admission creatinine of 1.9 worsened to 2.3 will start gentle fluid. Urine studies pre renal. Hold losartan start IV antibiotics to cover for pneumonia. Renal consultation ultrasound kidneys which came back negative for hydronephrosis. UTI ceftriaxone. Negative for influenza COVID and RSV. DVT prophylaxis with Lovenox. Creatinine continues to worsen to 3.5 did receive contrast on 11/12/2022. Continue to monitor volume status and urine output. Creatinine flat 2 today. Monitor urine output. Will check ABG for drowsiness/sleepiness. Using CPAP at night. Suspected severe sleep apnea Subjective Date/time seen: 11/15/22 12:38 Interval history: No overnight events. Feeling a bit better. Dozes off and on. Does not use CPAP at home. Does endorse diagnosis of BIRCE. Review of Systems Review of Systems: All systems reviewed & are unremarkable except as noted in HPI and below Exam Narrative: GENERAL: Well-developed, well-nourished, and in no acute distress. HEAD: Normocephalic, atraumatic. EYES: PERRLA and EOMI. edema of the bilateral eyes ENT: Nares clear, no rhinorrhea or epistaxis.? Mucous membranes moist.? CHEST: Clear to auscultation.? No respiratory distress.? No wheezes rales or rhonchi HEART: Regular rate and rhythm.? No murmur heard.? Normal peripheral pulses. ABDOMEN: Soft, nontender, nondistended, normal active bowel sounds. EXTREMITIES: Normal range of motion.? Trace bilateral lower extremity edema SKIN: Warm, dry, no rash. NEURO:? Alert and oriented x3. Moving all 4 limbs purposefully. PSYCH: calm and cooperative today Objective Data Vital Signs Vital Signs: Vital Signs - 24 hr 11/14/22 14:00 11/14/22 15:33 11/14/22 16:00 Temperature 98.0 F Pulse Rate 67 64 66 Respiratory Rate 16 Blood Pressure 106/81 Pulse Oximetry 90 Oxygen Delivery 11/14/22 16:00 11/14/22 19:41 11/14/22 18:00 Temperature 97.0 F L Pulse Rate 64 69 Respiratory Rate 18 Blood Pressure 123/60 Pulse Oximetry 95 Oxygen Delivery Room Air 11/14/22 21:08 11/14/22 21:56 11/14/22 20:00 Temperature Pul
[2022-11-15 14:39] LABS: Alveolar/Arterial O2 Gradient 27.2 mmHg; Base Excess ABG -2.5 mEq/l (+/-2.0); Fractional Inspired Oxygen 21 %; HCO3 ABG 25.7 mEq/l (22.0-26.0); PCO2 ABG 59.3 mmHg (35.0-45.0); PO2 ABG 51.5 mmHg (80.0-100.0); PO2 FiO2 Ratio Arterial Blood 2.45 %; Total Hemoglobin 13.6 g/dL (12.0-18.0)
[2022-11-15 14:48] LABS: Modified Allen's Test Pass; Oxygen Saturation ABG 80.2 % (95.0-100.0); Oxyhemoglobin 83.7 % THb (90.0-100.0); Site Drawn LEFT RADIAL; pH ABG 7.254 (7.350-7.450)
[2022-11-15 14:49] LABS: Device ROOM AIR
--- NOTE | 2022-11-15 14:53 | P.PNNP_ITS ---
Progress Note: A&P Assessment and Plan (1) ANIKET (acute kidney injury): Code(s): N17.9 - Acute kidney failure, unspecified Status: Acute Assessment and Plan: * as noted by recent labs * creatinine 1.9mg/dl on admission -- up to 3.5mg/dl * noted mild hyperkalemia as well * evaluation to date: * renal ultrasound without obstruction * urine electrolytes prerenal * urine eosinophils negative * CPK not done -- will reorder * follow-up on serologies * urine sodium was very low. He was probably dehydrated. * He received contrast in the ER. * Most likely a combination of dehydration plus ATN from the contrast. * Losartan is on hold * getting IV fluid * creatinine is the same today as yesterday. * Will check some more labs tomorrow (2) Stage 3a chronic kidney disease: Code(s): N18.31 - Chronic kidney disease, stage 3a Status: Chronic Assessment and Plan: * creatinine running around 1.4 - 1.7mg/dl about a year ago * though to be secondary to hypertension and obesity * however, his known history of polysubstance abuse may have played a role * sleep apnea as a possibility as well. He does snore loudly and he has some CO2 retention as well. (3) Hyperkalemia: Code(s): E87.5 - Hyperkalemia Status: Acute Assessment and Plan: * Potassium okay today. (4) Pneumonia: Code(s): J18.9 - Pneumonia, unspecified organism Status: Acute Assessment and Plan: * suggestion by CXR * CT of chest with tree-in-bud opacities and centrilobular nodules, predominantly in the right upper lobe, consistent with small airways infectious process * on Azithromycin (5) Essential (primary) hypertension: Code(s): I10 - Essential (primary) hypertension Status: Chronic Assessment and Plan: * systolic running in the 130s to 150s * holding losartan * on amlodipine and labetalol * PRN medications * follow trend of hemodynamics (6) Polysubstance abuse: Code(s): F19.10 - Other psychoactive substance abuse, uncomplicated Status: Chronic Assessment and Plan: * playing a role with #1(?) * supportive therapy Subjective Date/time seen: 11/15/22 14:53 Interval history: Kuldeep is feeling about the same. He is just tired. He denies chest pain or shortness of Exam Narrative: General: large malein NAD Heart: normal S1 and S2; no rub or gallop Lungs: clear bilateral Abdomen: soft, nontender, nondistended, positive bowel sounds Extremities: no cyanosis or clubbing; no edema Skin: no rash Objective Data Vital Signs Vital Signs: Vital Signs - 24 hr 11/14/22 15:33 11/14/22 16:00 11/14/22 16:00 Temperature 98.0 F Pulse Rate 64 66 Respiratory Rate 16 Blood Pressure 106/81 Pulse Oximetry 90 Oxygen Delivery Room Air 11/14/22 19:41 11/14/22 18:00 11/14/22 21:08 Temperature 97.0 F L Pulse Rate 64 69 72 Respiratory Rate 18 Blood Pressure 123/60 Pulse Oximetry 95 Oxygen Delivery 11/14/22 21:56 11/14/22 20:00 11/14/22 22:00 Temperature Pulse Rate 65 68 68 Respiratory Rate 19 Blood Pressure Pulse Oximetry 98
--- NOTE | 2022-11-15 14:53 | PM.PNNEP ---
Progress Note: A&P Assessment and Plan (1) ANIKET (acute kidney injury): Code(s): N17.9 - Acute kidney failure, unspecified Status: Acute Assessment and Plan: as noted by recent labs creatinine 1.9mg/dl on admission -- up to 3.5mg/dl noted mild hyperkalemia as well evaluation to date: renal ultrasound without obstruction urine electrolytes prerenal urine eosinophils negative CPK not done -- will reorder follow-up on serologies urine sodium was very low. He was probably dehydrated. He received contrast in the ER. Most likely a combination of dehydration plus ATN from the contrast. Losartan is on hold getting IV fluid creatinine is the same today as yesterday. Will check some more labs tomorrow (2) Stage 3a chronic kidney disease: Code(s): N18.31 - Chronic kidney disease, stage 3a Status: Chronic Assessment and Plan: creatinine running around 1.4 - 1.7mg/dl about a year ago though to be secondary to hypertension and obesity however, his known history of polysubstance abuse may have played a role sleep apnea as a possibility as well. He does snore loudly and he has some CO2 retention as well. (3) Hyperkalemia: Code(s): E87.5 - Hyperkalemia Status: Acute Assessment and Plan: Potassium okay today. (4) Pneumonia: Code(s): J18.9 - Pneumonia, unspecified organism Status: Acute Assessment and Plan: suggestion by CXR CT of chest with tree-in-bud opacities and centrilobular nodules, predominantly in the right upper lobe, consistent with small airways infectious process on Azithromycin (5) Essential (primary) hypertension: Code(s): I10 - Essential (primary) hypertension Status: Chronic Assessment and Plan: systolic running in the 130s to 150s holding losartan on amlodipine and labetalol PRN medications follow trend of hemodynamics (6) Polysubstance abuse: Code(s): F19.10 - Other psychoactive substance abuse, uncomplicated Status: Chronic Assessment and Plan: playing a role with #1(?) supportive therapy Subjective Date/time seen: 11/15/22 14:53 Interval history: Kuldeep is feeling about the same. He is just tired. He denies chest pain or shortness of Exam Narrative: General: large malein NAD Heart: normal S1 and S2; no rub or gallop Lungs: clear bilateral Abdomen: soft, nontender, nondistended, positive bowel sounds Extremities: no cyanosis or clubbing; no edema Skin: no rash Objective Data Vital Signs Vital Signs: Vital Signs - 24 hr 11/14/22 15:33 11/14/22 16:00 11/14/22 16:00 Temperature 98.0 F Pulse Rate 64 66 Respiratory Rate 16 Blood Pressure 106/81 Pulse Oximetry 90 Oxygen Delivery Room Air 11/14/22 19:41 11/14/22 18:00 11/14/22 21:08 Temperature 97.0 F L Pulse Rate 64 69 72 Respiratory Rate 18 Blood Pressure 123/60 Pulse Oximetry 95 Oxygen Delivery 11/14/22 21:56 11/14/22 20:00 11/14/22 22:00 Temperature Pulse Rate 65 68 68 Respiratory Rate 19 Blood Pressure Pulse Oximetry 98 Oxygen Delivery 11/14/22 23:07 11/15/22 00:00 11/15/22 00:00 Temperature 97.8 F Pulse Rate 64 61 Respiratory Rate 22 H Blood Pressure 135/62 Pulse Oximetry 98 98 Oxygen Delivery CPAP 11/14/22 21:08 11/15/22 02:07 11/15/22 02:00 Temperature Pulse Rate 67 63 Respiratory Rate 12 Blood Pressure 150/100 H Pulse Oximetry 97 Oxygen Delivery 11/15/22 03:21 11/15/22 04:00 11/15/22 04:00 Temperature 97.6 F Pulse Rate 75 64 Respiratory Rate 22 H Blood Pressure 146/82 H Pulse Oximetry 95 94 Oxygen Delivery CPAP 11/15/22 06:00 11/15/22 08:00 11/15/22 09:06 Temperature 98.2 F Pulse Rate 64 67 65 Respiratory Rate 16 Blood Pressure 138/62 Pulse Oximetry 93 Oxygen Delivery 11/15/22 08:00 11/15/22 0
[2022-11-15 15:28] LABS: Alveolar/Arterial O2 Gradient 25.4 mmHg; Base Excess ABG -2.9 mEq/l (+/-2.0); Fractional Inspired Oxygen 21 %; HCO3 ABG 24.8 mEq/l (22.0-26.0); Oxygen Content ABG 15.3 %vol (16.0-22.0); PCO2 ABG 56.5 mmHg (35.0-45.0); PO2 ABG 56.7 mmHg (80.0-100.0); Total Hemoglobin 12.6 g/dL (12.0-18.0)
[2022-11-15 15:33] LABS: Oxygen Saturation ABG 84.7 % (95.0-100.0); pH ABG 7.261 (7.350-7.450)
[2022-11-15 15:34] LABS: Device ROOM AIR; Modified Allen's Test Pass; Oxyhemoglobin 86.5 % THb (90.0-100.0); Site Drawn RIGHT RADIAL
[2022-11-15 18:08] LABS: Alveolar/Arterial O2 Gradient 156.4 mmHg; Base Excess ABG -7.7 mEq/l (+/-2.0); Carboxyhemoglobin 0.3 % THb (0-2.0); Fractional Inspired Oxygen 60 %; HCO3 ABG 22.2 mEq/l (22.0-26.0); Methemoglobin ABG 0.6 %THb (0-1.5); Oxyhemoglobin 97.6 % THb (90.0-100.0); PO2 ABG 198.5 mmHg (80.0-100.0); PO2 FiO2 Ratio Arterial Blood 3.31 %; Reduced Hemoglobin 1.5 %THb (0-5.0); Total Hemoglobin 12.8 g/dL (12.0-18.0)
[2022-11-15 18:13] LABS: Device BIPAP; Modified Allen's Test Pass; PCO2 ABG 66.3 mmHg (35.0-45.0); Site Drawn LEFT RADIAL; pH ABG 7.142 (7.350-7.450)
[2022-11-15 18:14] LABS: Expiratory Pressure 7 cmH2O; Inspiratory Pressure 14 cmH2O
[2022-11-15] MEDS: NALOXONE HCL 0.4 MG/ML VIAL IV PUSH (18:33)
[2022-11-15 20:12] LABS: Alveolar/Arterial O2 Gradient 87.7 mmHg; Base Excess ABG -4.6 mEq/l (+/-2.0); Carboxyhemoglobin 0.3 % THb (0-2.0); Fractional Inspired Oxygen 40 %; HCO3 ABG 23.8 mEq/l (22.0-26.0); Methemoglobin ABG 0.5 %THb (0-1.5); Oxygen Content ABG 17.6 %vol (16.0-22.0); Oxyhemoglobin 96.9 % THb (90.0-100.0); PCO2 ABG 58.9 mmHg (35.0-45.0); PO2 ABG 129.8 mmHg (80.0-100.0); PO2 FiO2 Ratio Arterial Blood 3.25 %; Reduced Hemoglobin 2.3 %THb (0-5.0); Total Hemoglobin 12.8 g/dL (12.0-18.0)
[2022-11-15 20:16] LABS: Modified Allen's Test Pass; Site Drawn LEFT RADIAL; pH ABG 7.224 (7.350-7.450)
[2022-11-15 20:17] LABS: Device NON-INVASIVE VENT; Non-Invasive Vent Rate 22 /MIN
[2022-11-15 20:19] LABS: Non-Invasive Expiratory Pressure 8 CMH2O
[2022-11-15 22:19] LABS: Amphetamine Screen Urine Negative (Negative); Barbiturate Screen Urine Negative (Negative); Benzodiazepines Screen Urine Positive (Negative); Cannabinoid Screen Urine Negative (Negative); Cocaine Screen Urine Negative (Negative); Methadone Screen Urine Negative (Negative); Opiate Screen Urine Negative (Negative); Phencyclidine Screen Urine Negative (Negative)
--- NOTE | 2022-11-15 22:33 | PCRCNOTE ---
apnea link held, pt unstable, placed on AVAPS, may need transfer to ICU
[2022-11-16] VITALS (31 sets, daily range): BP systolic 131–146; BP diastolic 60–66; PULSE 53–97; RESP 20–24; TEMP 36.4–37.3; O2SAT 95–100
[2022-11-16 00:56] LABS: Alveolar/Arterial O2 Gradient 86.3 mmHg; Carboxyhemoglobin 0.3 % THb (0-2.0); Fractional Inspired Oxygen 40 %; HCO3 ABG 22.5 mEq/l (22.0-26.0); Methemoglobin ABG 0.5 %THb (0-1.5); Oxygen Content ABG 17.3 %vol (16.0-22.0); Oxyhemoglobin 96.9 % THb (90.0-100.0); PCO2 ABG 57.7 mmHg (35.0-45.0); PO2 ABG 132.5 mmHg (80.0-100.0); PO2 FiO2 Ratio Arterial Blood 3.31 %; Reduced Hemoglobin 2.3 %THb (0-5.0); Total Hemoglobin 12.5 g/dL (12.0-18.0)
[2022-11-16 00:59] LABS: Device OTHER DEVICE; Modified Allen's Test Pass; Site Drawn RIGHT RADIAL; pH ABG 7.208 (7.350-7.450)
[2022-11-16] MEDS: SODIUM BICARBONATE 8.4% 100 MEQ in DEXTROSE 5% 1,000 ML 1,000 ML 50 MEQ IV CONT (01:51)
[2022-11-16 04:59] LABS: Basophils Percent Auto 0.3 % (0.2-1.2); Eosinophils Absolute Auto 0.2 K/mm3 (0-0.3); Eosinophils Percent Auto 3.2 % (0-4.4); Hematocrit 36.8 % (42.0-52.0); Hemoglobin 11.1 g/dL (14.0-18.0); Immature Granulocyte Absolute 0.01 K/mm3 (0.00-0.031); Immature Granulocyte Percent A 0.1 % (0-0.5); Lymphocytes Absolute Auto 1.15 K/mm3 (0.9-3.2); Lymphocytes Percent Auto 16.7 % (18.3-44.2); Mean Corpuscular HGB Conc 30.2 g/dl (32-36); Mean Corpuscular Hemoglobin 29.8 pg (26-34); Mean Corpuscular Volume 98.7 fl (80-100); Mean Platelet Volume 10.7 fl (7.4-10.4); Monocytes Absolute Auto 0.8 K/mm3 (0.1-0.6); Monocytes Percent Auto 11.8 % (2.6-8.5); Neutrophils Absolute Auto 4.7 K/mm3 (1.3-6.7); Neutrophils Percent Auto 67.9 % (45.5-73.1); Platelet Count Result 231 k/mm3 (150-375); Red Blood Count 3.73 M/mm3 (4.6-6.20); Red Cell Distribution Width 13.2 % (11.5-14.5); White Blood Count 6.9 K/mm3 (4.5-10.0)
[2022-11-16 05:14] LABS: Alanine Aminotransferase 26 U/L (6-50); Albumin Level 3.8 g/dL (3.5-5.1); Alkaline Phosphatase 65 U/L (38-126); Anion Gap 6 mmol/L (8-16); Aspartate Amino Transferase 54 U/L (17-59); Bilirubin,Total 0.7 mg/dL (0.2-1.3); Blood Urea Nitrogen 49 mg/dL (9-20); Calcium 8.4 mg/dL (8.4-10.2); Carbon Dioxide 28 mmol/L (22-30); Chloride 102 mmol/L (98-107); Estimated CRCL calculation 50 ml/min; Estimated Glomerular Filt Rate 24; Glucose 108 mg/dL (65-110); Magnesium 2.5 mg/dL (1.6-2.3); Phosphorus 5.8 mg/dL (2.5-4.5); Potassium 5.4 mmol/L (3.4-5.0); Sodium 136 mmol/L (137-145)
[2022-11-16] MEDS: AZITHROMYCIN 500 MG/NS 250 ML 500 MG/250 ML BAG 250 MG IVPB (08:23)
[2022-11-16] MEDS: HEPARIN SODIUM 5,000 UNITS/ML VIAL 5000 UNITS SUB-Q ×2 (08:25→20:43)
[2022-11-16] MEDS: PANTOPRAZOLE SODIUM IV 40 MG VIAL IV PUSH ×2 (08:26→20:43)
[2022-11-16 09:04] LABS: Alveolar/Arterial O2 Gradient 110.1 mmHg; Base Excess ABG -6.8 mEq/l (+/-2.0); Fractional Inspired Oxygen 40 %; HCO3 ABG 22.2 mEq/l (22.0-26.0); Oxygen Saturation ABG 96.3 % (95.0-100.0); Oxyhemoglobin 96.1 % THb (90.0-100.0); PO2 ABG 104.7 mmHg (80.0-100.0); PO2 FiO2 Ratio Arterial Blood 2.62 %; Total Hemoglobin 12.5 g/dL (12.0-18.0)
[2022-11-16 09:05] LABS: Device NON-INVASIVE VENT; Modified Allen's Test Pass; PCO2 ABG 61.2 mmHg (35.0-45.0); Site Drawn LEFT RADIAL; pH ABG 7.178 (7.350-7.450)
[2022-11-16 09:06] LABS: Non-Invasive Expiratory Pressure 8 CMH2O; Non-Invasive Vent Rate 22 /MIN
[2022-11-16] MEDS: NALOXONE HCL 0.4 MG/ML VIAL IV PUSH (10:54)
--- NOTE | 2022-11-16 11:05 | P.PNNP_ITS ---
Progress Note: A&P Assessment and Plan (1) ANIKET (acute kidney injury): Code(s): N17.9 - Acute kidney failure, unspecified Status: Acute Assessment and Plan: * as noted by recent labs * creatinine 1.9mg/dl on admission -- up to 3.5mg/dl * noted mild hyperkalemia as well * evaluation to date: * renal ultrasound without obstruction * urine electrolytes prerenal * urine eosinophils negative * CPK not done -- will reorder * follow-up on serologies * urine sodium was very low. He was probably dehydrated. * He received contrast in the ER. * Most likely a combination of dehydration plus ATN from the contrast. * Losartan is on hold * His recent chest x-rays does show some fluid . His pCO2 is still high. I discussed with Dr. Reno and I agree with giving him some diuretics today. * Hopefully his renal function will continue to improve as he distances from the contrast load. (2) Stage 3a chronic kidney disease: Code(s): N18.31 - Chronic kidney disease, stage 3a Status: Chronic Assessment and Plan: * creatinine running around 1.4 - 1.7mg/dl about a year ago * though to be secondary to hypertension and obesity * however, his known history of polysubstance abuse may have played a role * sleep apnea as a possibility as well. He does snore loudly and he has some CO2 retention as well. (3) Hyperkalemia: Code(s): E87.5 - Hyperkalemia Status: Acute Assessment and Plan: * Potassium is slightly high today. The loop diuretics should help with this. (4) Pneumonia: Code(s): J18.9 - Pneumonia, unspecified organism Status: Acute Assessment and Plan: * suggestion by CXR * CT of chest with tree-in-bud opacities and centrilobular nodules, predominantly in the right upper lobe, consistent with small airways infectious process * on Azithromycin (5) Essential (primary) hypertension: Code(s): I10 - Essential (primary) hypertension Status: Chronic Assessment and Plan: * systolic running in the 130s to 150s * On amlodipine and labetalol. Losartan is on hold. (6) Polysubstance abuse: Code(s): F19.10 - Other psychoactive substance abuse, uncomplicated Status: Chronic Assessment and Plan: * playing a role with #1(?) * supportive therapy Subjective Date/time seen: 11/16/22 11:05 Interval history: Kuldeep is somewhat lethargic on Bipap mask. Exam Narrative: General: large malein NAD Heart: normal S1 and S2; no rub or gallop Lungs: clear bilateral Abdomen: soft, nontender, nondistended, positive bowel sounds Extremities: no cyanosis or clubbing; no edema Skin: no rash or sq nodules Objective Data Vital Signs Vital Signs: Vital Signs - 24 hr 11/15/22 12:00 11/15/22 12:00 11/15/22 14:00 Temperature 98.9 F Pulse Rate 72 75 67 Respiratory Rate 12 Blood Pressure 158/80 H Pulse Oximetry 95 Oxygen Delivery Fraction of Inspired Oxygen 11/15/22 12:00 11/15/22 15:18 11/15/22 16:00 Temperature 97.7 F Pulse Rate 62 Respiratory Rate 17 Blood Pressure 138/71 Pulse Oximetry 93 98 99 Oxygen Delivery Room Air BiPAP Fraction of Inspired Oxygen 60
--- NOTE | 2022-11-16 11:05 | PM.PNNEP ---
Progress Note: A&P Assessment and Plan (1) ANIKET (acute kidney injury): Code(s): N17.9 - Acute kidney failure, unspecified Status: Acute Assessment and Plan: as noted by recent labs creatinine 1.9mg/dl on admission -- up to 3.5mg/dl noted mild hyperkalemia as well evaluation to date: renal ultrasound without obstruction urine electrolytes prerenal urine eosinophils negative CPK not done -- will reorder follow-up on serologies urine sodium was very low. He was probably dehydrated. He received contrast in the ER. Most likely a combination of dehydration plus ATN from the contrast. Losartan is on hold His recent chest x-rays does show some fluid . His pCO2 is still high. I discussed with Dr. Reno and I agree with giving him some diuretics today. Hopefully his renal function will continue to improve as he distances from the contrast load. (2) Stage 3a chronic kidney disease: Code(s): N18.31 - Chronic kidney disease, stage 3a Status: Chronic Assessment and Plan: creatinine running around 1.4 - 1.7mg/dl about a year ago though to be secondary to hypertension and obesity however, his known history of polysubstance abuse may have played a role sleep apnea as a possibility as well. He does snore loudly and he has some CO2 retention as well. (3) Hyperkalemia: Code(s): E87.5 - Hyperkalemia Status: Acute Assessment and Plan: Potassium is slightly high today. The loop diuretics should help with this. (4) Pneumonia: Code(s): J18.9 - Pneumonia, unspecified organism Status: Acute Assessment and Plan: suggestion by CXR CT of chest with tree-in-bud opacities and centrilobular nodules, predominantly in the right upper lobe, consistent with small airways infectious process on Azithromycin (5) Essential (primary) hypertension: Code(s): I10 - Essential (primary) hypertension Status: Chronic Assessment and Plan: systolic running in the 130s to 150s On amlodipine and labetalol. Losartan is on hold. (6) Polysubstance abuse: Code(s): F19.10 - Other psychoactive substance abuse, uncomplicated Status: Chronic Assessment and Plan: playing a role with #1(?) supportive therapy Subjective Date/time seen: 11/16/22 11:05 Interval history: Kuldeep is somewhat lethargic on Bipap mask. Exam Narrative: General: large malein NAD Heart: normal S1 and S2; no rub or gallop Lungs: clear bilateral Abdomen: soft, nontender, nondistended, positive bowel sounds Extremities: no cyanosis or clubbing; no edema Skin: no rash or sq nodules Objective Data Vital Signs Vital Signs: Vital Signs - 24 hr 11/15/22 12:00 11/15/22 12:00 11/15/22 14:00 Temperature 98.9 F Pulse Rate 72 75 67 Respiratory Rate 12 Blood Pressure 158/80 H Pulse Oximetry 95 Oxygen Delivery Fraction of Inspired Oxygen 11/15/22 12:00 11/15/22 15:18 11/15/22 16:00 Temperature 97.7 F Pulse Rate 62 Respiratory Rate 17 Blood Pressure 138/71 Pulse Oximetry 93 98 99 Oxygen Delivery Room Air BiPAP Fraction of Inspired Oxygen 60 11/15/22 15:20 11/15/22 18:29 11/15/22 16:00 Temperature Pulse Rate 72 Respiratory Rate 18 23 H Blood Pressure Pulse Oximetry 98 Oxygen Delivery BiPAP BiPAP BiPAP Fraction of Inspired Oxygen 40 11/15/22 16:00 11/15/22 18:00 11/15/22 19:41 Temperature 97.9 F Pulse Rate 65 67 79 Respiratory Rate 22 H Blood Pressure 120/75 Pulse Oximetry 97 Oxygen Delivery Fraction of Inspired Oxygen 11/15/22 20:24 11/15/22 20:00 11/15/22 20:00 Temperature Pulse Rate 77 70 Respiratory Rate 22 H Blood Pressure Pulse Oximetry 97 98 Oxygen Delivery BiPAP Fraction of Inspired Oxygen 40 11/15/22 23:26 11/15/22 23:42 11/15/22 22:00 Temperature 97.6 F Pulse Rate 70 81 80
[2022-11-16] MEDS: methylPREDNISolone SOD SUCC 125 MG VIAL IV PUSH (11:07)
[2022-11-16] MEDS: FUROSEMIDE INJ 100 MG/10 ML VIAL 80 MG IV PUSH (11:07)
[2022-11-16] MEDS: IPRATROPIUM BR 0.02% INH SOLN 0.5 MG/2.5 ML VIAL INHALATION ×4 (11:21→23:11)
[2022-11-16] MEDS: ALBUTEROL SULFATE NEB 2.5 MG/3 ML INH INHALATION ×4 (11:21→23:11)
--- NOTE | 2022-11-16 12:39 | PM.IMPN ---
Progress Note: A&P Assessment and Plan (1) CKD (chronic kidney disease): Code(s): N18.9 - Chronic kidney disease, unspecified Status: Acute (2) Polysubstance abuse: Code(s): F19.10 - Other psychoactive substance abuse, uncomplicated Status: Chronic (3) Obstructive sleep apnea syndrome: Code(s): G47.33 - Obstructive sleep apnea (adult) (pediatric) Status: Acute (4) Hyperkalemia: Code(s): E87.5 - Hyperkalemia Status: Acute (5) Facial swelling: Code(s): R22.0 - Localized swelling, mass and lump, head Status: Acute Plan Patient was at [facility] getting treatment for substance abuse. Which include opiates and alcohol. He was recently started on Suboxone when he woke up in the middle night he had bleeding from his nose noticed to have blood-streaked phlegm. Is also noted to have some facial swelling and and was sent to the ED for evaluation. He has history of opiate abuse feels snorting and IV drug use. Last IV use was years ago. He drinks alcohol 1 to 2 5th daily workup revealed creatinine of 1.9 and hyperkalemia which was treated in the ER. Also had lactic acidosis 2.3. UA with WBC clumps. He has underlying BRICE and uses CPAP. CT facial bones were negative CT brain was negative. Chest x-ray showed focal area of increased density left lung apex. Pulmonary nodule is not excluded possibly measuring to [address] chest shows tree-in-bud opacities and centrilobular nodules predominantly in right upper lobe consistent with small airways infectious process. T12 compression fractures somewhat he is indeterminate possibly acute. He reports no back pain. CT head reveals mucosal thickening and retention cyst/polyp in the left maxillary sinus. Creatinine continues to increase. His baseline creatinine up to last year was 1.4. Admission creatinine of 1.9 worsened to 2.3 started on gentle fluid. Urine studies pre renal. Hold losartan start IV antibiotics to cover for pneumonia. Renal consultation ultrasound kidneys which came back negative for hydronephrosis. UTI ceftriaxone. Negative for influenza COVID and RSV. DVT prophylaxis with Lovenox. Creatinine continues to worsen to 3.5 did receive contrast on 11/12/2022. Continue to monitor volume status and urine output. Creatinine now improving. monitor urine output. With drowsiness sleepiness obtain an ABG which showed respiratory acidosis. Started on a BiPAP which has been switched to AVAPS. Acidosis has not resolved with interventions. Consulted ICU team. He has underlying severe sleep apnea. Failed noninvasive ventilation may need intubation and/or adjustment of the BiPAP setting per Pulmonary/ICU Subjective Date/time seen: 11/16/22 12:39 Interval history: Patient awake and alert. ABG overnight reviewed. Discussed with school vocational educator. On AVAPS overnight. Review of Systems Review of Systems: All systems reviewed & are unremarkable except as noted in HPI and below Exam Narrative: GENERAL: Well-developed, well-nourished, and in no acute distress. HEAD: Normocephalic, atraumatic. On BiPAP EYES: PERRLA and EOMI. edema of the bilateral eyes ENT: Nares clear, no rhinorrhea or epistaxis.? Mucous membranes moist.? CHEST: Diminished breath sounds bilaterally no respiratory distress.? No wheezes rales or rhonchi HEART: Regular rate and rhythm.? No murmur heard.? Normal peripheral pulses. ABDOMEN: Soft, nontender, nondistended, normal active bowel sounds. EXTREMITIES: Normal range of motion.? Trace bilateral lower extremity edema SKIN: Warm, dry, no rash. NEURO:? Alert and oriented x3. Moving all 4 limbs purposefully. PSYCH: calm and cooperative Objective Data Vital Signs Vital Signs: Vital Signs - 24 hr 11/15/22 14:00 11/15/22 15:18 11/15/22 16:00 Temperature 97.7 F Pulse Rate 67 62 Respiratory Rate 17 Blood Pressure 138/71 Pulse Oximetry 98 99 Oxygen Delivery BiPAP Fraction o
[2022-11-16 13:14] LABS: Alveolar/Arterial O2 Gradient 127.3 mmHg; Base Excess ABG -3.6 mEq/l (+/-2.0); Fractional Inspired Oxygen 45 %; HCO3 ABG 23.9 mEq/l (22.0-26.0); Oxygen Content ABG 16.9 %vol (16.0-22.0); Oxygen Saturation ABG 98.2 % (95.0-100.0); PCO2 ABG 53.9 mmHg (35.0-45.0); PO2 ABG 132.2 mmHg (80.0-100.0); PO2 FiO2 Ratio Arterial Blood 2.94 %; Total Hemoglobin 12.1 g/dL (12.0-18.0)
[2022-11-16 13:22] LABS: Device NON-INVASIVE VENT; Modified Allen's Test Pass; Non-Invasive Vent Rate 22 /MIN; Site Drawn LEFT RADIAL; pH ABG 7.264 (7.350-7.450)
[2022-11-16 13:23] LABS: Non-Invasive Expiratory Pressure 8 CMH2O; Non-Invasive Inspiratory Pressure 24 CMH2O
[2022-11-16] MEDS: methylPREDNISolone SOD SUCC 125 MG VIAL 60 MG IV PUSH (18:09)
[2022-11-17] VITALS (33 sets, daily range): BP systolic 140–185; BP diastolic 71–91; PULSE 66–90; RESP 15–23; TEMP 36.2–37.1; O2SAT 95–100
[2022-11-17] MEDS: methylPREDNISolone SOD SUCC 125 MG VIAL 60 MG IV PUSH ×2 (00:27→06:15)
[2022-11-17 00:28] LABS: Alveolar/Arterial O2 Gradient 119.2 mmHg; Base Excess ABG -0.2 mEq/l (+/-2.0); Fractional Inspired Oxygen 35 %; HCO3 ABG 26.9 mEq/l (22.0-26.0); Oxygen Content ABG 15.4 %vol (16.0-22.0); Oxygen Saturation ABG 90.9 % (95.0-100.0); Oxyhemoglobin 90.8 % THb (90.0-100.0); PCO2 ABG 55.3 mmHg (35.0-45.0); PO2 ABG 66.1 mmHg (80.0-100.0); PO2 FiO2 Ratio Arterial Blood 1.89 %; pH ABG 7.305 (7.350-7.450)
[2022-11-17 00:29] LABS: Device NON-INVASIVE VENT; Modified Allen's Test Pass; Site Drawn RIGHT RADIAL
[2022-11-17 00:30] LABS: Non-Invasive Expiratory Pressure 8 CMH2O; Non-Invasive Inspiratory Pressure 24 CMH2O; Non-Invasive Vent Rate 22 /MIN
[2022-11-17] MEDS: ALBUTEROL SULFATE NEB 2.5 MG/3 ML INH INHALATION ×5 (04:30→20:41)
[2022-11-17] MEDS: IPRATROPIUM BR 0.02% INH SOLN 0.5 MG/2.5 ML VIAL INHALATION ×5 (04:30→20:41)
[2022-11-17 05:11] LABS: Basophils Percent Auto 0.1 % (0.2-1.2); Hematocrit 34.2 % (42.0-52.0); Hemoglobin 10.6 g/dL (14.0-18.0); Immature Granulocyte Absolute 0.03 K/mm3 (0.00-0.031); Immature Granulocyte Percent A 0.4 % (0-0.5); Lymphocytes Absolute Auto 0.59 K/mm3 (0.9-3.2); Lymphocytes Percent Auto 7.2 % (18.3-44.2); Mean Corpuscular Hemoglobin 29.9 pg (26-34); Mean Corpuscular Volume 96.6 fl (80-100); Mean Platelet Volume 10.7 fl (7.4-10.4); Monocytes Absolute Auto 0.1 K/mm3 (0.1-0.6); Neutrophils Absolute Auto 7.5 K/mm3 (1.3-6.7); Neutrophils Percent Auto 91.3 % (45.5-73.1); Platelet Count Result 219 k/mm3 (150-375); Red Blood Count 3.54 M/mm3 (4.6-6.20); Red Cell Distribution Width 12.9 % (11.5-14.5); White Blood Count 8.3 K/mm3 (4.5-10.0)
[2022-11-17 05:31] LABS: Alanine Aminotransferase 24 U/L (6-50); Albumin Level 3.8 g/dL (3.5-5.1); Alkaline Phosphatase 59 U/L (38-126); Anion Gap 8 mmol/L (8-16); Aspartate Amino Transferase 47 U/L (17-59); Bilirubin,Total 0.4 mg/dL (0.2-1.3); Blood Urea Nitrogen 50 mg/dL (9-20); Calcium 8.8 mg/dL (8.4-10.2); Carbon Dioxide 29 mmol/L (22-30); Chloride 100 mmol/L (98-107); Estimated CRCL calculation 67 ml/min; Estimated Glomerular Filt Rate 35; Glucose 168 mg/dL (65-110); Magnesium 2.2 mg/dL (1.6-2.3); Phosphorus 3.6 mg/dL (2.5-4.5); Potassium 5.2 mmol/L (3.4-5.0); Sodium 137 mmol/L (137-145)
--- NOTE | 2022-11-17 08:45 | PM.IMPN ---
Progress Note: A&P Assessment and Plan (1) CKD (chronic kidney disease): Code(s): N18.9 - Chronic kidney disease, unspecified Status: Acute (2) Polysubstance abuse: Code(s): F19.10 - Other psychoactive substance abuse, uncomplicated Status: Chronic (3) Obstructive sleep apnea syndrome: Code(s): G47.33 - Obstructive sleep apnea (adult) (pediatric) Status: Acute (4) Hyperkalemia: Code(s): E87.5 - Hyperkalemia Status: Acute (5) Facial swelling: Code(s): R22.0 - Localized swelling, mass and lump, head Status: Acute Plan Patient was at [facility] getting treatment for substance abuse. Which include opiates and alcohol. He was recently started on Suboxone when he woke up in the middle night he had bleeding from his nose noticed to have blood-streaked phlegm. Is also noted to have some facial swelling and and was sent to the ED for evaluation. He has history of opiate abuse feels snorting and IV drug use. Last IV use was years ago. He drinks alcohol 1 to 2 5th daily workup revealed creatinine of 1.9 and hyperkalemia which was treated in the ER. Also had lactic acidosis 2.3. UA with WBC clumps. He has underlying BRICE and uses CPAP. CT facial bones were negative CT brain was negative. Chest x-ray showed focal area of increased density left lung apex. Pulmonary nodule is not excluded possibly measuring to [address] chest shows tree-in-bud opacities and centrilobular nodules predominantly in right upper lobe consistent with small airways infectious process. T12 compression fractures somewhat he is indeterminate possibly acute. He reports no back pain. CT head reveals mucosal thickening and retention cyst/polyp in the left maxillary sinus. Creatinine continues to increase. His baseline creatinine up to last year was 1.4. Admission creatinine of 1.9 worsened to 2.3 started on gentle fluid. Urine studies pre renal. Hold losartan start IV antibiotics to cover for pneumonia. Renal consultation ultrasound kidneys which came back negative for hydronephrosis. UTI ceftriaxone. Negative for influenza COVID and RSV. DVT prophylaxis with Lovenox. Creatinine continues to worsen to 3.5 did receive contrast on 11/12/2022. Continue to monitor volume status and urine output. Creatinine now improving. monitor urine output. With drowsiness sleepiness obtain an ABG which showed respiratory acidosis. Started on a BiPAP which has been switched to AVAPS. Acidosis has not resolved with interventions. Consulted ICU team. He has underlying severe sleep apnea. Failed noninvasive ventilation may need intubation and/or adjustment of the BiPAP setting per Pulmonary/ICU Placed on BiPAP 20 over 10 with improvement in his ABG. Will continue same at night and during daytime on IV steroid received a dose of Lasix 11/17/2022 renal function stable. Restart losartan and amlodipine. IV steroids switched to oral stop prednisone. Continue on ceftriaxone azithromycin Subjective Date/time seen: 11/17/22 08:45 Interval history: More awake feeling better. Renal function has improved. Denies any chest pain. Review of Systems Review of Systems: All systems reviewed & are unremarkable except as noted in HPI and below Exam Narrative: GENERAL: Well-developed, well-nourished, and in no acute distress. HEAD: Normocephalic, atraumatic. On nasal cannula 3 L EYES: PERRLA and EOMI. edema of the bilateral eyes ENT: Nares clear, no rhinorrhea or epistaxis.? Mucous membranes moist.? CHEST: Diminished breath sounds bilaterally no respiratory distress.? No wheezes rales or rhonchi HEART: Regular rate and rhythm.? No murmur heard.? Normal peripheral pulses. ABDOMEN: Soft, nontender, nondistended, normal active bowel sounds. EXTREMITIES: Normal range of motion.? Trace bilateral lower extremity edema SKIN: Warm, dry, no rash. NEURO:? Alert and oriented x3. Moving all 4 limbs purposefully. PSYCH:
[2022-11-17] MEDS: LABETALOL HCL 100 MG TABLET 200 MG PO ×2 (09:55→21:59)
[2022-11-17] MEDS: SERTRALINE HCL 50 MG TABLET 150 MG PO (09:55)
[2022-11-17] MEDS: amLODIPine BESYLATE 5 MG TABLET 10 MG PO (09:56)
[2022-11-17] MEDS: MULTIVITAMINS THERAPEUTIC TAB (*BKC) 1 TABLET PO (09:56)
[2022-11-17] MEDS: PANTOPRAZOLE SODIUM IV 40 MG VIAL IV PUSH ×2 (09:56→21:59)
[2022-11-17] MEDS: HEPARIN SODIUM 5,000 UNITS/ML VIAL 5000 UNITS SUB-Q ×2 (09:56→21:59)
[2022-11-17] MEDS: busPIRone HCL 10 MG TABLET PO ×2 (09:56→17:46)
[2022-11-17] MEDS: GABAPENTIN 300 MG CAPSULE PO (09:56)
[2022-11-17] MEDS: AZITHROMYCIN 500 MG/NS 250 ML 500 MG/250 ML BAG 250 MG IVPB (09:57)
--- NOTE | 2022-11-17 10:00 | PM.PNNEP ---
Progress Note: A&P Assessment and Plan (1) ANIKET (acute kidney injury): Code(s): N17.9 - Acute kidney failure, unspecified Status: Acute Assessment and Plan: improvement noted evaluation to date: renal ultrasound without obstruction urine electrolytes prerenal contrast exposure noted as well urine eosinophils negative CPK not done -- will reorder follow-up on serologies suspect etiology is a combination of dehydration plus ATN from the contrast losartan is on hold s/p diuretic therapy follow on repeat labs and UOP (2) Stage 3a chronic kidney disease: Code(s): N18.31 - Chronic kidney disease, stage 3a Status: Chronic Assessment and Plan: creatinine running around 1.4 - 1.7mg/dl about a year ago though to be secondary to hypertension and obesity however, his known history of polysubstance abuse may have played a role along with untreated BRICE (3) Hyperkalemia: Code(s): E87.5 - Hyperkalemia Status: Acute Assessment and Plan: noted diuretic therapy should help follow repeat levels (4) Pneumonia: Code(s): J18.9 - Pneumonia, unspecified organism Status: Acute Assessment and Plan: suggestion by CXR CT of chest with tree-in-bud opacities and centrilobular nodules, predominantly in the right upper lobe, consistent with small airways infectious process on azithromycin (5) Essential (primary) hypertension: Code(s): I10 - Essential (primary) hypertension Status: Chronic Assessment and Plan: systolic running in the 130s to 150s on amlodipine and labetalol losartan on hold (6) Polysubstance abuse: Code(s): F19.10 - Other psychoactive substance abuse, uncomplicated Status: Chronic Assessment and Plan: playing a role with #1(?) supportive therapy Will continue to follow. Subjective Date/time seen: 11/17/22 10:00 Interval history: Follow-up for acute kidney injury/acute renal failure on chronic kidney disease. Seems a bit more awake and alert at the time of my visit; good response of IV diuretics with improvement in renal function as well; no apparent distress voiced; no issues/events overnght or earlier this morning. Exam Narrative: General: large male in NAD Heart: normal S1 and S2; no rub Lungs: clear anteriorly Abdomen: soft, nontender, nondistended, positive bowel sounds Extremities: no cyanosis or clubbing; no edema Skin: warm and dry Objective Data Vital Signs Vital Signs: Vital Signs Temp Pulse Resp BP Pulse Ox O2 Del Method O2 Flow Rate 11/17/22 09:55 90 11/17/22 08:38 77 20 11/17/22 08:28 76 96 11/17/22 08:27 76 20 96 Nasal Cannula 3 11/17/22 08:22 76 20 11/17/22 08:00 98.5 F 72 18 185/85 H 98 11/17/22 06:00 82 11/17/22 04:00 77 11/17/22 04:45 79 22 H 11/17/22 03:00 23 H 98 BiPAP 11/17/22 04:30 78 23 H 11/17/22 04:00 97 BiPAP 11/17/22 03:55 97.1 F L 72 22 H 144/90 H 97 11/17/22 02:00 89 11/17/22 00:00 82 11/17/22 00:00 96 BiPAP 11/17/22 00:00 98.8 F 84 16 140/76 98 11/16/22 23:11 75 22 H 11/16/22 23:29 76 24 H 11/16/22 23:12 24 H 97 BiPAP 11/16/22 20:15 79 22 H 11/16/22 22:00 90 11/16/22 20:00 89 11/16/22 20:00 100 BiPAP 11/16/22 19:56 98 BiPAP 11/16/22 19:55 22 H 98 BiPAP 11/16/22 19:53 76 22 H 11/16/22 19:37 99.2 F 80 20 138/65 97 11/16/22 18:00 97 11/16/22 17:00 95 Nasal Cannula 4 11/16/22 17:06 82 20 11/16/22 16:50 79 22 H 11/16/22 16:00 75 11/16/22 16:00 96 BiPAP 11/16/22 16:00 99.1 F 72 22 H 136/63 98 11/16/22 12:00 96 BiPAP 11/16/22 14:00 78 11/16/22 12:00 75 11/16/22 13:06 22 H 97 BiPAP 11/16/22 11:54
--- NOTE | 2022-11-17 10:00 | P.PNNP_ITS ---
Progress Note: A&P Assessment and Plan (1) ANIKET (acute kidney injury): Code(s): N17.9 - Acute kidney failure, unspecified Status: Acute Assessment and Plan: * improvement noted * evaluation to date: * renal ultrasound without obstruction * urine electrolytes prerenal * contrast exposure noted as well * urine eosinophils negative * CPK not done -- will reorder * follow-up on serologies * suspect etiology is a combination of dehydration plus ATN from the contrast * losartan is on hold * s/p diuretic therapy * follow on repeat labs and UOP (2) Stage 3a chronic kidney disease: Code(s): N18.31 - Chronic kidney disease, stage 3a Status: Chronic Assessment and Plan: * creatinine running around 1.4 - 1.7mg/dl about a year ago * though to be secondary to hypertension and obesity * however, his known history of polysubstance abuse may have played a role along with untreated BRICE (3) Hyperkalemia: Code(s): E87.5 - Hyperkalemia Status: Acute Assessment and Plan: * noted * diuretic therapy should help * follow repeat levels (4) Pneumonia: Code(s): J18.9 - Pneumonia, unspecified organism Status: Acute Assessment and Plan: * suggestion by CXR * CT of chest with tree-in-bud opacities and centrilobular nodules, predominantly in the right upper lobe, consistent with small airways infectious process * on azithromycin (5) Essential (primary) hypertension: Code(s): I10 - Essential (primary) hypertension Status: Chronic Assessment and Plan: * systolic running in the 130s to 150s * on amlodipine and labetalol * losartan on hold (6) Polysubstance abuse: Code(s): F19.10 - Other psychoactive substance abuse, uncomplicated Status: Chronic Assessment and Plan: * playing a role with #1(?) * supportive therapy Will continue to follow. Subjective Date/time seen: 11/17/22 10:00 Interval history: Follow-up for acute kidney injury/acute renal failure on chronic kidney disease. Seems a bit more awake and alert at the time of my visit; good response of IV diuretics with improvement in renal function as well; no apparent distress voiced; no issues/events overnght or earlier this morning. Exam Narrative: General: large male in NAD Heart: normal S1 and S2; no rub Lungs: clear anteriorly Abdomen: soft, nontender, nondistended, positive bowel sounds Extremities: no cyanosis or clubbing; no edema Skin: warm and dry Objective Data Vital Signs Vital Signs: Vital Signs Temp Pulse Resp BP Pulse Ox O2 Del Method O2 Flow Rate 11/17/22 09:55 90 11/17/22 08:38 77 20 11/17/22 08:28 76 96 11/17/22 08:27 76 20 96 Nasal Cannula 3 11/17/22 08:22 76 20 11/17/22 08:00 98.5 F 72 18 185/85 H 98 11/17/22 06:00 82 11/17/22 04:00 77 11/17/22 04:45 79 22 H 11/17/22 03:00 23 H 98 BiPAP 11/17/22 04:30 78 23 H 11/17/22 04:00 97 BiPAP 11/17/22 03:55 97.1 F L 72 22 H 144/90 H 97 11/17/22 02:00 89 11/17/22 00:00 82 11/17/22 00:00 96 BiPAP 11/17/22 00:00 98.8 F 84 16 140/76 98 11/16/22 23:1
--- NOTE | 2022-11-17 11:25 | PM.CNPUL ---
Assessment and Plan Assessment and plan (1) Acute hypercapnic respiratory failure due to obstructive sleep apnea: Code(s): J96.02 - Acute respiratory failure with hypercapnia; G47.33 - Obstructive sleep apnea (adult) (pediatric) Status: Acute Assessment and Plan: This 42-year-old man with history of morbid obesity, known sleep apnea diagnosed years ago on no treatment has been treated for acute on chronic hypercapnic respiratory failure related to obesity hypoventilation. Patient has been on BiPAP support using pressures 24/8 respiratory rate 22 and FiO2 0.35% with apartial improvement of his acute on chronic respiratory acidosis. The patient was placed on BiPAP AVAPS, with the following settings: tidal volume 550, EPAP 8, respiratory rate 14, and FiO2 0.35. Will monitor patient on the new BiPAP settings with repeat arterial blood gases. Will consider ApneaLink on current settings. (2) Pneumonia: Code(s): J18.9 - Pneumonia, unspecified organism Status: Acute Assessment and Plan: Patient had no symptoms to suggest lower respiratory tract infection. Chest CT showed a mild tree-in-bud pattern especially in right lung. Significance of these infiltrates unclear. Okay to continue with ceftriaxone and Zithromax at this point. Switch patient to oral prednisone starting tomorrow continue with DVT prophylaxis. will follow patient along with you. (3) ANIKET (acute kidney injury): Code(s): N17.9 - Acute kidney failure, unspecified Status: Acute (4) Polysubstance abuse: Code(s): F19.10 - Other psychoactive substance abuse, uncomplicated Status: Chronic (5) History of narcotic addiction: Code(s): F11.21 - Opioid dependence, in remission Status: Acute History of Present Illness History of Present Illness Consult date: 11/17/22 Chief complaint: HYPERKALEMIA,ANIKET Narrative: This 42-year-old man was admitted to the hospital 6 days ago because of epistaxis. The patient has history of morbid obesity, untreated sleep apnea, polysubstance abuse. He was undergoing treatment for polysubstance abuse at [facility]. He woke up at night with a bloody discharge and was transferred to the emergency room. During this hospitalization the patient was found to have acute on chronic hypercapnic respiratory failure and has been treated with BiPAP support using pressure 24/8 respiratory rate 22 and FiO2 of 0.35. On repeat arterial blood gases there was improvement of his acute on chronic hypercapnic respiratory failure with a pH now 7.30 and pCO2 at 55 mmHg. Patient has been diagnosed with sleep apnea following a sleep study years ago. He was briefly treated with a CPAP machine but because of losing insurance he has not been on any treatment for sleep apnea for quite some time. He reports excessive daytime somnolence and frequent naps. Chest CT on admission showed mild tree-in-bud pattern especially in in right lung. Pulmonary arteries appear prominent. He has been on antibiotics with ceftriaxone Zithromax as well as on IV steroids. He has history of hypertension depression restless leg syndrome. Currently he is fully awake oriented on just supplemental oxygen via nasal cannula. Review of Systems Review of Systems: Patient has gained significant amount of weight over the last 6 months, more than 50 lb. He has no orthopnea. Has history of acid reflux disease and has been on a PPI. He has no nausea vomiting diarrhea constipation. He reports some urinary hesitancy. He has history lower extremity edema. He has history of alcohol abuse as well as polysubstance abuse. He has history of depression as stated above. [facility] Past Medical History Medical History (Updated 11/17/22 @ 11:34 by Marcus Ortega MD) Alcohol abuse Essential (primary) hypertension History of narcotic addiction Major depressive disorder, recurrent, in remission Migraines Obstructive sleep apnea syndrome
[2022-11-17] MEDS: MELATONIN 5 MG TABLET PO (20:37)
[2022-11-18] VITALS (34 sets, daily range): BP systolic 128–168; BP diastolic 67–89; PULSE 64–85; RESP 15–21; TEMP 36.4–36.8; O2SAT 95–100
[2022-11-18] MEDS: IPRATROPIUM BR 0.02% INH SOLN 0.5 MG/2.5 ML VIAL INHALATION ×6 (00:31→21:00)
[2022-11-18] MEDS: ALBUTEROL SULFATE NEB 2.5 MG/3 ML INH INHALATION ×6 (00:31→21:00)
[2022-11-18 05:31] LABS: Basophils Percent Auto 0.1 % (0.2-1.2); Hemoglobin 10.3 g/dL (14.0-18.0); Immature Granulocyte Absolute 0.06 K/mm3 (0.00-0.031); Immature Granulocyte Percent A 0.5 % (0-0.5); Lymphocytes Absolute Auto 1.38 K/mm3 (0.9-3.2); Lymphocytes Percent Auto 10.7 % (18.3-44.2); Mean Corpuscular HGB Conc 30.3 g/dl (32-36); Mean Corpuscular Hemoglobin 29.9 pg (26-34); Mean Corpuscular Volume 98.8 fl (80-100); Mean Platelet Volume 11.1 fl (7.4-10.4); Monocytes Absolute Auto 0.9 K/mm3 (0.1-0.6); Monocytes Percent Auto 7.1 % (2.6-8.5); Neutrophils Absolute Auto 10.5 K/mm3 (1.3-6.7); Neutrophils Percent Auto 81.6 % (45.5-73.1); Platelet Count Result 235 k/mm3 (150-375); Red Blood Count 3.44 M/mm3 (4.6-6.20); Red Cell Distribution Width 13.3 % (11.5-14.5); White Blood Count 12.9 K/mm3 (4.5-10.0)
[2022-11-18 05:41] LABS: Alanine Aminotransferase 21 U/L (6-50); Albumin Level 3.7 g/dL (3.5-5.1); Alkaline Phosphatase 53 U/L (38-126); Anion Gap 7 mmol/L (8-16); Aspartate Amino Transferase 29 U/L (17-59); Bilirubin,Total 0.3 mg/dL (0.2-1.3); Blood Urea Nitrogen 49 mg/dL (9-20); Calcium 8.7 mg/dL (8.4-10.2); Carbon Dioxide 29 mmol/L (22-30); Chloride 104 mmol/L (98-107); Estimated CRCL calculation 74 ml/min; Estimated Glomerular Filt Rate 39; Glucose 160 mg/dL (65-110); Magnesium 2.3 mg/dL (1.6-2.3); Potassium 4.6 mmol/L (3.4-5.0); Sodium 140 mmol/L (137-145)
[2022-11-18 08:28] LABS: Alveolar/Arterial O2 Gradient 61.4 mmHg; Base Excess ABG 0.7 mEq/l (+/-2.0); Fractional Inspired Oxygen 32 %; HCO3 ABG 28.9 mEq/l (22.0-26.0); Oxygen Content ABG 17.1 %vol (16.0-22.0); Oxygen Saturation ABG 95.9 % (95.0-100.0); Oxyhemoglobin 95.5 % THb (90.0-100.0); PO2 ABG 92.6 mmHg (80.0-100.0); PO2 FiO2 Ratio Arterial Blood 2.89 %; Total Hemoglobin 12.7 g/dL (12.0-18.0)
[2022-11-18 08:30] LABS: Device NASAL CANNULA; Modified Allen's Test Pass; PCO2 ABG 63.4 mmHg (35.0-45.0); Site Drawn LEFT RADIAL; pH ABG 7.276 (7.350-7.450)
--- NOTE | 2022-11-18 09:21 | P.PNNP_ITS ---
Progress Note: A&P Assessment and Plan (1) ANIKET (acute kidney injury): Code(s): N17.9 - Acute kidney failure, unspecified Status: Acute Assessment and Plan: * improvement noted * evaluation to date: * renal ultrasound without obstruction * urine electrolytes prerenal * contrast exposure noted as well * urine eosinophils negative * CPK not done -- will reorder * follow-up on serologies * suspect etiology is a combination of dehydration plus ATN from the contrast * losartan is on hold * s/p diuretic therapy * follow on repeat labs and UOP (2) Stage 3a chronic kidney disease: Code(s): N18.31 - Chronic kidney disease, stage 3a Status: Chronic Assessment and Plan: * creatinine running around 1.4 - 1.7mg/dl about a year ago * though to be secondary to hypertension and obesity * however, his known history of polysubstance abuse may have played a role along with untreated BRICE (3) Hyperkalemia: Code(s): E87.5 - Hyperkalemia Status: Acute Assessment and Plan: * doing better * follow repeat levels (4) Pneumonia: Code(s): J18.9 - Pneumonia, unspecified organism Status: Acute Assessment and Plan: * suggestion by CXR * CT of chest with tree-in-bud opacities and centrilobular nodules, predominantly in the right upper lobe, consistent with small airways infec tious process * on azithromycin (5) Essential (primary) hypertension: Code(s): I10 - Essential (primary) hypertension Status: Chronic Assessment and Plan: * systolic running in the 130s to 150s * on amlodipine and labetalol * losartan on hold (6) Polysubstance abuse: Code(s): F19.10 - Other psychoactive substance abuse, uncomplicated Status: Chronic Assessment and Plan: * playing a role with #1(?) * supportive therapy Will continue to follow. Subjective Date/time seen: 11/18/22 09:21 Interval history: Follow-up for acute kidney injury/acute renal failure on chronic kidney disease. More awake and alert this morning at the time of my visit; continues to make good urine output with improvement in renal function as well; no apparent distress voiced currently; no acute issues overnight or earlier this AM. Exam Narrative: General: large male in NAD; on BiPAP Heart: normal S1 and S2; no rub Lungs: clear anteriorly Abdomen: soft, nontender, nondistended, positive bowel sounds Extremities: no cyanosis or clubbing; no edema Skin: warm and intact Objective Data Vital Signs Vital Signs: Vital Signs Temp Pulse Resp BP Pulse Ox O2 Del Method O2 Flow Rate 11/18/22 08:40 75 20 11/18/22 08:00 98.3 F 79 18 153/89 H 100 11/18/22 08:17 69 20 11/18/22 08:17 96 Nasal Cannula 3 11/18/22 06:06 85 11/18/22 05:20 67 16 98 BiPAP 11/18/22 02:00 78 19 100 BiPAP 11/18/22 04:42 66 20 11/18/22 04:38 67 20 11/18/22 04:00 70 11/18/22 04:00 70 17 100 CPAP 11/18/22 03:23 97.5 F L 70 17 134/68 100 11/18/22 02:00 69 11/18/22 00:00 74 11/17/22 22:00 77 18 100 BiPAP 11/18/22 00:36 83 20 11/18/22 00:32 80 20 11/17/22 20:50 82
--- NOTE | 2022-11-18 09:21 | PM.PNNEP ---
Progress Note: A&P Assessment and Plan (1) ANIKET (acute kidney injury): Code(s): N17.9 - Acute kidney failure, unspecified Status: Acute Assessment and Plan: improvement noted evaluation to date: renal ultrasound without obstruction urine electrolytes prerenal contrast exposure noted as well urine eosinophils negative CPK not done -- will reorder follow-up on serologies suspect etiology is a combination of dehydration plus ATN from the contrast losartan is on hold s/p diuretic therapy follow on repeat labs and UOP (2) Stage 3a chronic kidney disease: Code(s): N18.31 - Chronic kidney disease, stage 3a Status: Chronic Assessment and Plan: creatinine running around 1.4 - 1.7mg/dl about a year ago though to be secondary to hypertension and obesity however, his known history of polysubstance abuse may have played a role along with untreated BRICE (3) Hyperkalemia: Code(s): E87.5 - Hyperkalemia Status: Acute Assessment and Plan: doing better follow repeat levels (4) Pneumonia: Code(s): J18.9 - Pneumonia, unspecified organism Status: Acute Assessment and Plan: suggestion by CXR CT of chest with tree-in-bud opacities and centrilobular nodules, predominantly in the right upper lobe, consistent with small airways infectious process on azithromycin (5) Essential (primary) hypertension: Code(s): I10 - Essential (primary) hypertension Status: Chronic Assessment and Plan: systolic running in the 130s to 150s on amlodipine and labetalol losartan on hold (6) Polysubstance abuse: Code(s): F19.10 - Other psychoactive substance abuse, uncomplicated Status: Chronic Assessment and Plan: playing a role with #1(?) supportive therapy Will continue to follow. Subjective Date/time seen: 11/18/22 09:21 Interval history: Follow-up for acute kidney injury/acute renal failure on chronic kidney disease. More awake and alert this morning at the time of my visit; continues to make good urine output with improvement in renal function as well; no apparent distress voiced currently; no acute issues overnight or earlier this AM. Exam Narrative: General: large male in NAD; on BiPAP Heart: normal S1 and S2; no rub Lungs: clear anteriorly Abdomen: soft, nontender, nondistended, positive bowel sounds Extremities: no cyanosis or clubbing; no edema Skin: warm and intact Objective Data Vital Signs Vital Signs: Vital Signs Temp Pulse Resp BP Pulse Ox O2 Del Method O2 Flow Rate 11/18/22 08:40 75 20 11/18/22 08:00 98.3 F 79 18 153/89 H 100 11/18/22 08:17 69 20 11/18/22 08:17 96 Nasal Cannula 3 11/18/22 06:06 85 11/18/22 05:20 67 16 98 BiPAP 11/18/22 02:00 78 19 100 BiPAP 11/18/22 04:42 66 20 11/18/22 04:38 67 20 11/18/22 04:00 70 11/18/22 04:00 70 17 100 CPAP 11/18/22 03:23 97.5 F L 70 17 134/68 100 11/18/22 02:00 69 11/18/22 00:00 74 11/17/22 22:00 77 18 100 BiPAP 11/18/22 00:36 83 20 11/18/22 00:32 80 20 11/17/22 20:50 82 20 11/18/22 00:00 81 15 95 CPAP 11/17/22 23:32 97.6 F 81 15 148/74 H 95 11/17/22 20:00 78 11/17/22 22:16 78 11/17/22 21:59 78 11/17/22 20:00 73 20 95 Nasal Cannula 3 11/17/22 20:46 73 20 95 Nasal Cannula 3 11/17/22 20:44 82 20 11/17/22 20:00 88 22 H 154/71 H 97 11/17/22 18:00 87 11/17/22 16:00 76 11/17/22 16:00 97 Nasal Cannula 3 11/17/22 16:00 98.6 F 81 16 143/80 H 97 11/17/22 17:12 81 20 11/17/22 16:58 77 20 11/17/22 14:00 75 11/17/22 12:00 83 11/17/22 13:20 73 17 11/17/22 13:15 67 15 99 BiPAP 11/17/22 13:13 66 15 11/17/22 12:00 96 N
--- NOTE | 2022-11-18 09:50 | PC.NURSE ---
Spoke with Kristina from [facility]. Updated on pts status. Kristina requested that we inform them of plans for discharge with additional documentation. [phone] ext [phone]. Clarisa in care coordination made aware.
[2022-11-18] MEDS: HEPARIN SODIUM 5,000 UNITS/ML VIAL 5000 UNITS SUB-Q ×2 (09:55→21:09)
[2022-11-18] MEDS: PANTOPRAZOLE SODIUM IV 40 MG VIAL IV PUSH ×2 (09:55→21:10)
[2022-11-18] MEDS: GABAPENTIN 300 MG CAPSULE PO (09:56)
[2022-11-18] MEDS: MULTIVITAMINS THERAPEUTIC TAB (*BKC) 1 TABLET PO (09:56)
[2022-11-18] MEDS: SERTRALINE HCL 50 MG TABLET 150 MG PO (09:56)
[2022-11-18] MEDS: LABETALOL HCL 100 MG TABLET 200 MG PO ×2 (09:56→21:10)
[2022-11-18] MEDS: amLODIPine BESYLATE 5 MG TABLET 10 MG PO (09:56)
[2022-11-18] MEDS: busPIRone HCL 10 MG TABLET PO ×2 (09:57→17:19)
[2022-11-18 12:16] LABS: Alveolar/Arterial O2 Gradient 123.9 mmHg; Base Excess ABG -0.5 mEq/l (+/-2.0); Fractional Inspired Oxygen 35 %; PCO2 ABG 57.5 mmHg (35.0-45.0); PO2 ABG 58.8 mmHg (80.0-100.0); PO2 FiO2 Ratio Arterial Blood 1.68 %; Total Hemoglobin 12.1 g/dL (12.0-18.0)
[2022-11-18 12:19] LABS: pH ABG 7.289 (7.350-7.450)
[2022-11-18 12:20] LABS: Modified Allen's Test Pass; Site Drawn RIGHT RADIAL
[2022-11-18 12:21] LABS: Non-Invasive Vent Rate 16 /MIN
[2022-11-18 12:22] LABS: Non-Invasive Expiratory Pressure 10 CMH2O
[2022-11-18 12:23] LABS: Albumin 3.4 g/dL (3.8-4.8); Alpha 1 Globulin 0.3 g/dL (0.2-0.3); Alpha 2 Globulin 0.8 g/dL (0.5-0.9); Beta 1 Globulin 0.5 g/dL (0.4-0.6); Gamma Globulin 0.9 g/dL (0.8-1.7); Protein, Total 6.2 g/dL (6.1-8.1)
[2022-11-18 12:23] LABS: Device NON-INVASIVE VENT
[2022-11-18 12:26] LABS: Oxygen Saturation ABG 86.9 % (95.0-100.0)
--- NOTE | 2022-11-18 13:26 | PM.IMPN ---
Progress Note: A&P Assessment and Plan (1) CKD (chronic kidney disease): Code(s): N18.9 - Chronic kidney disease, unspecified Status: Acute (2) Polysubstance abuse: Code(s): F19.10 - Other psychoactive substance abuse, uncomplicated Status: Chronic (3) Obstructive sleep apnea syndrome: Code(s): G47.33 - Obstructive sleep apnea (adult) (pediatric) Status: Acute (4) Hyperkalemia: Code(s): E87.5 - Hyperkalemia Status: Acute (5) Facial swelling: Code(s): R22.0 - Localized swelling, mass and lump, head Status: Acute Plan Patient was at [place] getting treatment for substance abuse. Which include opiates and alcohol. He was recently started on Suboxone when he woke up in the middle night he had bleeding from his nose noticed to have blood-streaked phlegm. Is also noted to have some facial swelling and and was sent to the ED for evaluation. He has history of opiate abuse feels snorting and IV drug use. Last IV use was years ago. He drinks alcohol 1 to 2 5th daily workup revealed creatinine of 1.9 and hyperkalemia which was treated in the ER. Also had lactic acidosis 2.3. UA with WBC clumps. He has underlying BRICE and uses CPAP. CT facial bones were negative CT brain was negative. Chest x-ray showed focal area of increased density left lung apex. Pulmonary nodule is not excluded possibly measuring to [address] chest shows tree-in-bud opacities and centrilobular nodules predominantly in right upper lobe consistent with small airways infectious process. T12 compression fractures somewhat he is indeterminate possibly acute. He reports no back pain. CT head reveals mucosal thickening and retention cyst/polyp in the left maxillary sinus. Creatinine continues to increase. His baseline creatinine up to last year was 1.4. Admission creatinine of 1.9 worsened to 2.3 started on gentle fluid. Urine studies pre renal. Hold losartan start IV antibiotics to cover for pneumonia. Renal consultation ultrasound kidneys which came back negative for hydronephrosis. UTI ceftriaxone. Negative for influenza COVID and RSV. DVT prophylaxis with Lovenox. Creatinine continued to worsen to 3.5 did receive contrast on 11/12/2022. Continue to monitor volume status and urine output. Creatinine now improving and back to baseline. monitor urine output. With drowsiness sleepiness obtain an ABG which showed respiratory acidosis. Started on a BiPAP which has been switched to AVAPS. Acidosis has not resolved with interventions. Consulted ICU team. He has underlying severe sleep apnea. Failed noninvasive ventilation may need intubation and/or adjustment of the BiPAP setting per Pulmonary/ICU Placed on BiPAP 20 over 10 with improvement in his ABG. Will continue same at night and during daytime on IV steroid received a dose of Lasix 11/17/2022 renal function stable. Restart losartan and amlodipine. IV steroids switched to oral stop prednisone. Continue on ceftriaxone azithromycin He has underlying obesity hypoventilation syndrome and will qualify for home trilogy. Pulmonary changing the setting.. Antibiotic switched to oral He came from drug rehabilitation program in patient and plan to get back there once medically stable Subjective Date/time seen: 11/18/22 13:26 Interval history: patient on bipap. ABG reviewed. Discussed with Pulmonary. Review of Systems Review of Systems: All systems reviewed & are unremarkable except as noted in HPI and below Exam Narrative: GENERAL: Well-developed, well-nourished, and in no acute distress. HEAD: Normocephalic, atraumatic. On BiPAP EYES: PERRLA and EOMI. edema of the bilateral eyes ENT: Nares clear, no rhinorrhea or epistaxis.? Mucous membranes moist.? CHEST: Diminished breath sounds bilaterally no respiratory distress.? No wheezes rales or rhonchi HEART: Regular rate and rhythm.? No murmur heard.? Normal peripheral pulses. ABDO
--- NOTE | 2022-11-18 14:30 | PM.PNPUL ---
Progress Note: A&P Assessment and Plan (1) Obesity hypoventilation syndrome: Code(s): E66.2 - Morbid (severe) obesity with alveolar hypoventilation Status: Acute Assessment and Plan: This 42-year-old man with? history of morbid obesity, known sleep apnea diagnosed years ago on no treatment has been treated for acute on chronic hypercapnic respiratory failure related to obesity hypoventilation.? Patient was switched to BiPAP AVAPS last night but arterial blood gases today still showing borderline PH and higher pCO2 than yesterday. BiPAP AVAPS settings were adjusted to increase the minute ventilation. Will repeat blood gases in about 2 hours from last adjustment. Continue with current antibiotics. Prednisone has been discontinued patient has no evidence of wheezing on physical exam. (2) Acute hypercapnic respiratory failure due to obstructive sleep apnea: Code(s): J96.02 - Acute respiratory failure with hypercapnia; G47.33 - Obstructive sleep apnea (adult) (pediatric) Status: Acute (3) ANIKET (acute kidney injury): Code(s): N17.9 - Acute kidney failure, unspecified Status: Acute (4) Polysubstance abuse: Code(s): F19.10 - Other psychoactive substance abuse, uncomplicated Status: Chronic (5) CKD (chronic kidney disease): Code(s): N18.9 - Chronic kidney disease, unspecified Status: Acute (6) History of narcotic addiction: Code(s): F11.21 - Opioid dependence, in remission Status: Acute Subjective Date/time seen: 11/18/22 14:30 Interval history: Patient did not sleep well last night. Used BiPAP AVAPS last night. Fully awake this a.m. arterial blood gases showed persistent hypercapnia with borderline PH. Review of Systems Review of Systems: All systems reviewed & are unremarkable except as noted in HPI and below (HPI and below) Exam Narrative: GENERAL APPEARANCE: Well developed, well nourished, alert and cooperative, and appears to be in no acute distress while on supplemental oxygen via nasal cannula SKIN: Inspection of the skin reveals no rashes, ulcerations or petechiae. HEENT: Sclerae anicteric and conjunctivae pink and moist. Extraocular movements were intact and pupils were equal, round, and reactive to light. Dry oral mucosa NECK: Supple. There was no thyroid enlargement, and no tenderness, or masses were felt. CHEST: Normal AP diameter and normal contour without any kyphoscoliosis. LUNGS: Distant breath sounds bilaterally no wheezing. CARDIAC: There was a regular rate and rhythm without any murmurs, gallops, rubs. ABDOMEN: Soft and nontender with normal bowel sounds. There was no organomegaly. LYMPH NODES: No lymphadenopathy was appreciated in the neck. EXTREMITIES: No cyanosis, clubbing; trace pedal edema NEUROLOGIC: Alert and oriented x 3. Normal affect. Objective Data Vital Signs Vital Signs: Vital Signs - 24 hr 11/17/22 16:58 11/17/22 17:12 11/17/22 16:00 Temperature 37.0 C Pulse Rate 77 81 81 Respiratory Rate 20 20 16 Blood Pressure 143/80 H Pulse Oximetry 97 Oxygen Delivery Oxygen Flow Rate Fraction of Inspired Oxygen 11/17/22 16:00 11/17/22 16:00 11/17/22 18:00 Temperature Pulse Rate 76 87 Respiratory Rate Blood Pressure Pulse Oximetry 97 Oxygen Delivery Nasal Cannula Oxygen Flow Rate 3 Fraction of Inspired Oxygen 11/17/22 20:00 11/17/22 20:44 11/17/22 20:46 Temperature Pulse Rate 88 82 73 Respiratory Rate 22 H 20 20 Blood Pressure 154/71 H Pulse Oximetry 97 95 Oxygen Delivery Nasal Cannula Oxygen Flow Rate 3 Fraction of Inspired Oxygen 11/17/22 20:00 11/17/22 21:59 11/17/22 22:16 Temperature Pulse Rate 73 78 78 Respiratory Rate 20 Blood Pressure Pulse Oximetry 95 Oxygen Delivery Nasal Cannula Oxygen Flow Rate 3 Fraction of Inspired Oxygen 11/17/22 20:00 11/17/22 23:32 11/18/22 00:00 Temperature 36.4 C Pulse Rate 78 81
[2022-11-18 16:31] LABS: Alveolar/Arterial O2 Gradient 67.5 mmHg; Base Excess ABG -0.7 mEq/l (+/-2.0); Carboxyhemoglobin 0.2 % THb (0-2.0); Fractional Inspired Oxygen 35 %; HCO3 ABG 27.1 mEq/l (22.0-26.0); Methemoglobin ABG 0.4 %THb (0-1.5); Oxygen Content ABG 16.4 %vol (16.0-22.0); Oxygen Saturation ABG 97.4 % (95.0-100.0); Oxyhemoglobin 96.5 % THb (90.0-100.0); Reduced Hemoglobin 2.9 %THb (0-5.0)
[2022-11-18 16:33] LABS: PCO2 ABG 60.3 mmHg (35.0-45.0); Site Drawn LEFT RADIAL; pH ABG 7.271 (7.350-7.450)
[2022-11-18 16:34] LABS: Device NON-INVASIVE VENT; Modified Allen's Test Pass
[2022-11-18 16:36] LABS: Non-Invasive Expiratory Pressure 10 CMH2O; Non-Invasive Vent Rate 16 /MIN
--- NOTE | 2022-11-18 17:45 | PC.NURSE ---
Pt sitting up in bed on bipap. Right pupil dilated and non reactive. Left pupil midsized and reactive. Reports vision changes. Denies headache. Face symmetrical. Able to hold arms up equally without deviation. Able to touch fingertips to tip of nose without difficulty. Alert and oriented to person, place, and time. Speech clear and appropriate. Dr. Mancera made aware. New orders noted for CT brain wo contrast.
[2022-11-18 19:43] LABS: Amphetamine Screen Urine Negative (Negative); Barbiturate Screen Urine Negative (Negative); Benzodiazepines Screen Urine Positive (Negative); Cannabinoid Screen Urine Negative (Negative); Cocaine Screen Urine Negative (Negative); Methadone Screen Urine Negative (Negative); Opiate Screen Urine Negative (Negative); Phencyclidine Screen Urine Negative (Negative)
[2022-11-18 21:30] LABS: Kappa\\Lambda Light Chains 1.49 (0.26-1.65); Lambda Light Chain 46.5 mg/L (5.7-26.3)
[2022-11-19] VITALS (28 sets, daily range): BP systolic 120–173; BP diastolic 64–92; PULSE 54–80; RESP 18–23; TEMP 36.4–37.1; O2SAT 94–100
[2022-11-19] MEDS: IPRATROPIUM BR 0.02% INH SOLN 0.5 MG/2.5 ML VIAL INHALATION ×6 (00:30→20:24)
[2022-11-19] MEDS: ALBUTEROL SULFATE NEB 2.5 MG/3 ML INH INHALATION ×6 (00:30→20:24)
[2022-11-19 01:43] LABS: Anti Glomerular Basement Memb <1.0 AI (<1.0)
[2022-11-19 05:24] LABS: Basophils Percent Auto 0.4 % (0.2-1.2); Eosinophils Absolute Auto 0.1 K/mm3 (0-0.3); Eosinophils Percent Auto 1.2 % (0-4.4); Hematocrit 35.4 % (42.0-52.0); Hemoglobin 10.7 g/dL (14.0-18.0); Immature Granulocyte Absolute 0.03 K/mm3 (0.00-0.031); Immature Granulocyte Percent A 0.3 % (0-0.5); Lymphocytes Absolute Auto 2.83 K/mm3 (0.9-3.2); Mean Corpuscular HGB Conc 30.2 g/dl (32-36); Mean Corpuscular Hemoglobin 30.7 pg (26-34); Mean Corpuscular Volume 101.4 fl (80-100); Mean Platelet Volume 10.9 fl (7.4-10.4); Monocytes Absolute Auto 0.8 K/mm3 (0.1-0.6); Monocytes Percent Auto 8.3 % (2.6-8.5); Neutrophils Absolute Auto 5.4 K/mm3 (1.3-6.7); Neutrophils Percent Auto 58.8 % (45.5-73.1); Platelet Count Result 224 k/mm3 (150-375); Red Blood Count 3.49 M/mm3 (4.6-6.20); Red Cell Distribution Width 13.6 % (11.5-14.5); White Blood Count 9.1 K/mm3 (4.5-10.0)
[2022-11-19 05:33] LABS: Alanine Aminotransferase 21 U/L (6-50); Albumin Level 3.8 g/dL (3.5-5.1); Alkaline Phosphatase 58 U/L (38-126); Anion Gap 4 mmol/L (8-16); Aspartate Amino Transferase 26 U/L (17-59); Bilirubin,Total 0.4 mg/dL (0.2-1.3); Blood Urea Nitrogen 45 mg/dL (9-20); Calcium 8.8 mg/dL (8.4-10.2); Carbon Dioxide 33 mmol/L (22-30); Chloride 103 mmol/L (98-107); Estimated CRCL calculation 64 ml/min; Estimated Glomerular Filt Rate 33; Glucose 100 mg/dL (65-110); Magnesium 2.2 mg/dL (1.6-2.3); Potassium 4.4 mmol/L (3.4-5.0); Sodium 140 mmol/L (137-145)
[2022-11-19 08:32] LABS: Alveolar/Arterial O2 Gradient 75.7 mmHg; Base Excess ABG 2.2 mEq/l (+/-2.0); Device NASAL CANNULA; Fractional Inspired Oxygen 32 %; HCO3 ABG 29.7 mEq/l (22.0-26.0); Modified Allen's Test Pass; Oxygen Saturation ABG 94.9 % (95.0-100.0); PO2 ABG 82.3 mmHg (80.0-100.0); PO2 FiO2 Ratio Arterial Blood 2.57 %; Site Drawn LEFT RADIAL; Total Hemoglobin 12.7 g/dL (12.0-18.0); pH ABG 7.313 (7.350-7.450)
[2022-11-19] MEDS: PANTOPRAZOLE SODIUM IV 40 MG VIAL IV PUSH ×2 (09:14→20:21)
[2022-11-19] MEDS: HEPARIN SODIUM 5,000 UNITS/ML VIAL 5000 UNITS SUB-Q ×2 (09:14→20:21)
[2022-11-19] MEDS: SERTRALINE HCL 50 MG TABLET 150 MG PO (09:15)
[2022-11-19] MEDS: LABETALOL HCL 100 MG TABLET 200 MG PO ×2 (09:15→20:21)
[2022-11-19] MEDS: MULTIVITAMINS THERAPEUTIC TAB (*BKC) 1 TABLET PO (09:15)
[2022-11-19] MEDS: amLODIPine BESYLATE 5 MG TABLET 10 MG PO (09:15)
[2022-11-19] MEDS: GABAPENTIN 300 MG CAPSULE PO (09:16)
[2022-11-19] MEDS: busPIRone HCL 10 MG TABLET PO ×2 (09:16→16:53)
--- NOTE | 2022-11-19 09:27 | PM.PNPUL ---
Progress Note: A&P Assessment and Plan (1) Obesity hypoventilation syndrome: Code(s): E66.2 - Morbid (severe) obesity with alveolar hypoventilation Status: Acute Assessment and Plan: This 42-year-old man with? history of morbid obesity, has chronic hypercapnic respiratory failure related to obesity hypoventilation. Patient presented with acute on chronic hypercapnic respiratory failure as his obesity hypoventilation has been untreated. Patient has been on noninvasive ventilatory support via BIPAP to correct hypercapnic respiratory acidosis. While on very high BiPAP pressures, his arterial blood gases today showed a pH of 7.31 which is higher than the pH measured over the last week. Patient has been he unable to increase his minute ventilation because of significant air leak despite using different types of facial masks. The patient would benefit from noninvasive ventilatory support at night and during the day to prevent progression and avoid further hospitalizations. I would recommend noninvasive ventilation with AVAPS AE mode. (2) ANIKET (acute kidney injury): Code(s): N17.9 - Acute kidney failure, unspecified Status: Acute (3) Polysubstance abuse: Code(s): F19.10 - Other psychoactive substance abuse, uncomplicated Status: Chronic (4) CKD (chronic kidney disease): Code(s): N18.9 - Chronic kidney disease, unspecified Status: Acute (5) History of narcotic addiction: Code(s): F11.21 - Opioid dependence, in remission Status: Acute (6) Major depressive disorder, recurrent, in remission: Code(s): F33.40 - Major depressive disorder, recurrent, in remission, unspecified Status: Acute Subjective Date/time seen: 11/19/22 09:27 Interval history: Patient doing little better today. He slept better last night. Used BiPAP support last night. Currently off BiPAP, having breakfast. No other respiratory symptoms. Review of Systems Review of Systems: All systems reviewed & are unremarkable except as noted in HPI and below (HPI and below) Exam Narrative: GENERAL APPEARANCE: Well developed, well nourished, alert and cooperative, and appears to be in no acute distress while on supplemental oxygen via nasal cannula SKIN: Inspection of the skin reveals no rashes, ulcerations or petechiae. HEENT: Sclerae anicteric and conjunctivae pink and moist. Extraocular movements were intact and pupils were equal, round, and reactive to light. Dry oral mucosa NECK: Supple. There was no thyroid enlargement, and no tenderness, or masses were felt. CHEST: Normal AP diameter and normal contour without any kyphoscoliosis. LUNGS: Distant breath sounds bilaterally no wheezing. CARDIAC: There was a regular rate and rhythm without any murmurs, gallops, rubs. ABDOMEN: Soft and nontender with normal bowel sounds. There was no organomegaly. LYMPH NODES: No lymphadenopathy was appreciated in the neck. EXTREMITIES: No cyanosis, clubbing; trace pedal edema NEUROLOGIC: Alert and oriented x 3. Normal affect. Objective Data Vital Signs Vital Signs: Vital Signs - 24 hr 11/18/22 09:34 11/18/22 09:56 11/18/22 11:02 Temperature 36.6 C Pulse Rate 74 75 74 Respiratory Rate 19 16 Blood Pressure 142/78 H Pulse Oximetry 98 98 Oxygen Delivery BiPAP Oxygen Flow Rate Fraction of Inspired Oxygen 11/18/22 11:30 11/18/22 11:44 11/18/22 10:00 Temperature Pulse Rate 69 66 73 Respiratory Rate 17 21 H Blood Pressure Pulse Oximetry 97 Oxygen Delivery BiPAP Oxygen Flow Rate Fraction of Inspired Oxygen 11/18/22 11:44 11/18/22 11:44 11/18/22 10:53 Temperature Pulse Rate 66 66 68 Respiratory Rate 21 H 20 19 Blood Pressure Pulse Oximetry 97 97 Oxygen Delivery BiPAP BiPAP Oxygen Flow Rate Fraction of Inspired Oxygen 11/18/22 13:59 11/18/22 14:50 11/18/22 12:00 Temperature Pulse Rate 69 68 80 Respiratory Rate 18 18 Blood Pres
--- NOTE | 2022-11-19 12:59 | P.PNNP_ITS ---
Progress Note: A&P Assessment and Plan (1) ANIKET (acute kidney injury): Code(s): N17.9 - Acute kidney failure, unspecified Status: Acute Assessment and Plan: * improvement noted * evaluation to date: * renal ultrasound without obstruction * urine electrolytes prerenal * contrast exposure noted as well * urine eosinophils negative * CPK not done -- will reorder * follow-up on serologies * suspect etiology is a combination of dehydration plus ATN from the contrast exposure * losartan is on hold * s/p diuretic therapy * follow on repeat labs and UOP (2) Stage 3a chronic kidney disease: Code(s): N18.31 - Chronic kidney disease, stage 3a Status: Chronic Assessment and Plan: * creatinine running around 1.4 - 1.7mg/dl about a year ago * thought to be secondary to hypertension and obesity * however, his known history of polysubstance abuse may have played a role along with untreated BRICE * possible new baseline creatinine (1.9 - 2.3mg/dl)??? (3) Hyperkalemia: Code(s): E87.5 - Hyperkalemia Status: Acute Assessment and Plan: * doing better * follow repeat levels (4) Pneumonia: Code(s): J18.9 - Pneumonia, unspecified organism Status: Acute Assessment and Plan: * suggestion by CXR * CT of chest with tree-in-bud opacities and centrilobular nodules, predominan tly in the right upper lobe, consistent with small airways infectious process * on antibiotics (5) Essential (primary) hypertension: Code(s): I10 - Essential (primary) hypertension Status: Chronic Assessment and Plan: * reasonable control * on amlodipine and labetalol * losartan on hold * follow trend of hemodynamics (6) Polysubstance abuse: Code(s): F19.10 - Other psychoactive substance abuse, uncomplicated Status: Chronic Assessment and Plan: * playing a role with #1(?) * supportive therapy Will continue to follow. Subjective Date/time seen: 11/19/22 12:59 Interval history: Follow-up for acute kidney injury/acute renal failure on chronic kidney disease. Respiratory status seems relatively stable; sleeping better with BiPAP therapy; eating lunch off BiPAP and does not appear in any distress; no other issues/events voiced at the time of my visit. Exam Narrative: General: large male in NAD; off BiPAP and eating lunch Heart: normal S1 and S2; no rub Lungs: clear anteriorly Abdomen: soft, nontender, nondistended, positive bowel sounds Extremities: no cyanosis or clubbing; no edema Skin: no rash Objective Data Vital Signs Vital Signs: Vital Signs Temp Pulse Resp BP Pulse Ox O2 Del Method O2 Flow Rate 11/19/22 12:58 72 20 11/19/22 12:41 71 20 11/19/22 11:57 98 F 68 18 120/64 97 11/19/22 10:00 78 11/19/22 08:00 65 11/19/22 08:00 97 BiPAP 11/19/22 09:15 75 11/19/22 08:00 97.6 F 74 20 173/92 H 100 11/19/22 08:14 97 Nasal Cannula 3 11/19/22 08:13 77 20 11/19/22 07:58 65 20 11/19/22 07:58 100 BiPAP 11/19/22 07:58 65 20 100 BiPAP 11/19/22 04:00 54 L 11/19/22 04:00 97.7 F 59 L 18 141/71 H 99 11/19/22 03:48 58 L 18
--- NOTE | 2022-11-19 12:59 | PM.PNNEP ---
Progress Note: A&P Assessment and Plan (1) ANIKET (acute kidney injury): Code(s): N17.9 - Acute kidney failure, unspecified Status: Acute Assessment and Plan: improvement noted evaluation to date: renal ultrasound without obstruction urine electrolytes prerenal contrast exposure noted as well urine eosinophils negative CPK not done -- will reorder follow-up on serologies suspect etiology is a combination of dehydration plus ATN from the contrast exposure losartan is on hold s/p diuretic therapy follow on repeat labs and UOP (2) Stage 3a chronic kidney disease: Code(s): N18.31 - Chronic kidney disease, stage 3a Status: Chronic Assessment and Plan: creatinine running around 1.4 - 1.7mg/dl about a year ago thought to be secondary to hypertension and obesity however, his known history of polysubstance abuse may have played a role along with untreated BRICE possible new baseline creatinine (1.9 - 2.3mg/dl)??? (3) Hyperkalemia: Code(s): E87.5 - Hyperkalemia Status: Acute Assessment and Plan: doing better follow repeat levels (4) Pneumonia: Code(s): J18.9 - Pneumonia, unspecified organism Status: Acute Assessment and Plan: suggestion by CXR CT of chest with tree-in-bud opacities and centrilobular nodules, predominantly in the right upper lobe, consistent with small airways infectious process on antibiotics (5) Essential (primary) hypertension: Code(s): I10 - Essential (primary) hypertension Status: Chronic Assessment and Plan: reasonable control on amlodipine and labetalol losartan on hold follow trend of hemodynamics (6) Polysubstance abuse: Code(s): F19.10 - Other psychoactive substance abuse, uncomplicated Status: Chronic Assessment and Plan: playing a role with #1(?) supportive therapy Will continue to follow. Subjective Date/time seen: 11/19/22 12:59 Interval history: Follow-up for acute kidney injury/acute renal failure on chronic kidney disease. Respiratory status seems relatively stable; sleeping better with BiPAP therapy; eating lunch off BiPAP and does not appear in any distress; no other issues/events voiced at the time of my visit. Exam Narrative: General: large male in NAD; off BiPAP and eating lunch Heart: normal S1 and S2; no rub Lungs: clear anteriorly Abdomen: soft, nontender, nondistended, positive bowel sounds Extremities: no cyanosis or clubbing; no edema Skin: no rash Objective Data Vital Signs Vital Signs: Vital Signs Temp Pulse Resp BP Pulse Ox O2 Del Method O2 Flow Rate 11/19/22 12:58 72 20 11/19/22 12:41 71 20 11/19/22 11:57 98 F 68 18 120/64 97 11/19/22 10:00 78 11/19/22 08:00 65 11/19/22 08:00 97 BiPAP 11/19/22 09:15 75 11/19/22 08:00 97.6 F 74 20 173/92 H 100 11/19/22 08:14 97 Nasal Cannula 3 11/19/22 08:13 77 20 11/19/22 07:58 65 20 11/19/22 07:58 100 BiPAP 11/19/22 07:58 65 20 100 BiPAP 11/19/22 04:00 54 L 11/19/22 04:00 97.7 F 59 L 18 141/71 H 99 11/19/22 03:48 58 L 18 11/19/22 03:35 59 L 18 96 BiPAP 11/19/22 03:34 62 18 11/19/22 00:40 61 18 97 BiPAP 11/19/22 00:40 61 20 11/19/22 00:30 60 20 11/19/22 00:00 60 11/18/22 23:27 97.8 F 64 18 140/78 100 11/18/22 20:00 68 11/18/22 21:10 67 18 11/18/22 21:05 67 18 99 BiPAP 11/18/22 21:00 67 19 11/18/22 21:10 70 11/18/22 19:40 98.3 F 70 18 128/67 99 Intake/Output Intake/Output: Intake & Output 11/16/22 11/17/22 11/18/22 11/19/22 23:59 23:59 23:59 23:59 Intake Total 5208 854 9360 1270 Output Total 3700 4100 2200 600 Balance -7510 -3743 -270 670 Meds/Results Medications: Active Medications Generic Name Do
--- NOTE | 2022-11-19 14:00 | PC.NURSE ---
Green yellow eye discharge noted with reddened sclera and conjunctiva to right eye. Pupil continues to be fixed and dilated. Dr. Decker made aware.
--- NOTE | 2022-11-19 16:39 | PM.IMPN ---
Progress Note: A&P Assessment and Plan (1) CKD (chronic kidney disease): Code(s): N18.9 - Chronic kidney disease, unspecified Status: Acute Assessment and Plan: Creatinine at baseline (2) Polysubstance abuse: Code(s): F19.10 - Other psychoactive substance abuse, uncomplicated Status: Chronic Assessment and Plan: patient undergoing rehab prior to admission (3) Obstructive sleep apnea syndrome: Code(s): G47.33 - Obstructive sleep apnea (adult) (pediatric) Status: Acute (4) Hyperkalemia: Code(s): E87.5 - Hyperkalemia Status: Acute Assessment and Plan: resolved (5) Facial swelling: Code(s): R22.0 - Localized swelling, mass and lump, head Status: Acute Plan Continue BIPAP and oxygen titration per Pulmonology Patient was at [facility] getting treatment for substance abuse: opioids and alcohol. Hyperkalemia resolved, Cr still elevated at 2.2 Continue Rocephin start Lasix 40mg bid, prior CXR showed cardiomagaly with pulm edema repeat CXR in the AM Plan is to discharge patient back to rehab center on [facility] pulmonology following DVT prophylaxis On heparin sq Subjective Date/time seen: 11/19/22 16:39 Interval history: Was receiving breathing treatment at the time of encounter, nurse and RT reported he has been mostly BIPAP dependent i think most of his problem could be from OHS, Pulm following Review of Systems Review of Systems: He denies substance use during his admission at [facility], chest pain, palpitations, shortness of breath, fever, chills, recent illness. All systems reviewed & are unremarkable except as noted in HPI and below Exam Narrative: GENERAL: Well-developed, well-nourished, and in no acute distress. HEAD: Normocephalic, atraumatic. On BiPAP EYES: PERRLA and EOMI. edema of the bilateral eyes ENT: Nares clear, no rhinorrhea or epistaxis.? Mucous membranes moist.? CHEST: Diminished breath sounds bilaterally no respiratory distress.? No wheezes rales or rhonchi HEART: Regular rate and rhythm.? No murmur heard.? Normal peripheral pulses. ABDOMEN: Soft, nontender, nondistended, normal active bowel sounds. EXTREMITIES: Normal range of motion.? Trace bilateral lower extremity edema SKIN: Warm, dry, no rash. NEURO:? Alert and oriented x3. Moving all 4 limbs purposefully. PSYCH: calm and cooperative Const: General: comfortable and no acute distress HENMT: Mouth: Yes dry mucous membranes Eyes: General: appearance normal, both eyes and all related structures Pupils: Equal, round and reactive pupils present Other: sclera injected, scant white to cream-colored dried drainage. pupils are 2 mm and reactive. Resp: Effort & Inspection: normal respiratory effort Auscultation: clear to auscultation bilaterally Cardio: Rate: regular rate Rhythm: regular rhythm Other: Limited exam due to body habitus GI: Auscultation: normal bowel sounds Skin: General skin exam: normal color and no rashes or lesions noted Wounds: no wounds Neuro: Cranial nerves: Yes Equal, round and reactive pupils present Speech: normal speech Sensory Exam: normal sensation Other: No tremors, pupils reactive, patient is A/Ox4. somnolent during exam, awakens to voice. Extrem: General: normal to inspection Other: Trace pitting edema to bilateral lower extremities Psych: Mental Status: mental status grossly normal Other: mild agitation due to lack of dietary order. Objective Data Vital Signs Vital Signs: Vital Signs - 24 hr 11/18/22 16:55 11/18/22 18:00 11/18/22 19:40 Temperature 98.3 F Pulse Rate 67 73 70 Respiratory Rate 18 18 Blood Pressure 128/67 Pulse Oximetry 100 99 Oxygen Delivery BiPAP Oxygen Flow Rate Fraction of Inspired Oxygen 11/18/22 21:10 11/18/22 21:00 11/18/22 21:05 Temperature Pulse Rate 70 67 67 Respiratory Rate 19 18 Blood Pressure
[2022-11-19] MEDS: FUROSEMIDE INJ 40 MG/4 ML VIAL IV PUSH (18:16)
[2022-11-19] MEDS: MELATONIN 5 MG TABLET PO (21:55)
[2022-11-20] VITALS (33 sets, daily range): BP systolic 125–178; BP diastolic 54–91; PULSE 59–80; RESP 12–23; TEMP 36.4–36.9; O2SAT 94–99
[2022-11-20] MEDS: IPRATROPIUM BR 0.02% INH SOLN 0.5 MG/2.5 ML VIAL INHALATION ×7 (00:55→23:44)
[2022-11-20] MEDS: ALBUTEROL SULFATE NEB 2.5 MG/3 ML INH INHALATION ×7 (00:55→23:44)
[2022-11-20 02:55] LABS: Creatinine, Random Urine 199 mg/dL (20-320); Total Protein/Creatinine Ratio 85 mg/g creat (25-148)
[2022-11-20 05:24] LABS: Basophils Absolute Auto 0.1 K/mm3 (0.0-0.1); Basophils Percent Auto 0.6 % (0.2-1.2); Eosinophils Absolute Auto 0.3 K/mm3 (0-0.3); Eosinophils Percent Auto 3.1 % (0-4.4); Hematocrit 34.7 % (42.0-52.0); Hemoglobin 10.4 g/dL (14.0-18.0); Immature Granulocyte Absolute 0.02 K/mm3 (0.00-0.031); Immature Granulocyte Percent A 0.3 % (0-0.5); Lymphocytes Absolute Auto 2.63 K/mm3 (0.9-3.2); Mean Corpuscular Hemoglobin 29.7 pg (26-34); Mean Corpuscular Volume 99.1 fl (80-100); Monocytes Absolute Auto 0.7 K/mm3 (0.1-0.6); Monocytes Percent Auto 8.8 % (2.6-8.5); Neutrophils Absolute Auto 4.3 K/mm3 (1.3-6.7); Neutrophils Percent Auto 54.2 % (45.5-73.1); Platelet Count Result 220 k/mm3 (150-375); Red Cell Distribution Width 13.3 % (11.5-14.5)
[2022-11-20 05:34] LABS: Alveolar/Arterial O2 Gradient 27.3 mmHg; Carboxyhemoglobin 0.3 % THb (0-2.0); Device NON-INVASIVE VENT; Fractional Inspired Oxygen 25 %; HCO3 ABG 29.6 mEq/l (22.0-26.0); Methemoglobin ABG 0.4 %THb (0-1.5); Modified Allen's Test Pass; Non-Invasive Expiratory Pressure 8 CMH2O; Non-Invasive Inspiratory Pressure 22 CMH2O; Non-Invasive Vent Rate 18 /MIN; Oxygen Content ABG 16.1 %vol (16.0-22.0); Oxygen Saturation ABG 95.9 % (95.0-100.0); Oxyhemoglobin 95.1 % THb (90.0-100.0); PCO2 ABG 54.9 mmHg (35.0-45.0); PO2 ABG 85.8 mmHg (80.0-100.0); PO2 FiO2 Ratio Arterial Blood 3.43 %; Reduced Hemoglobin 4.2 %THb (0-5.0); Site Drawn RIGHT RADIAL
[2022-11-20 05:37] LABS: Alanine Aminotransferase 18 U/L (6-50); Albumin Level 3.5 g/dL (3.5-5.1); Alkaline Phosphatase 60 U/L (38-126); Anion Gap 6 mmol/L (8-16); Aspartate Amino Transferase 24 U/L (17-59); Bilirubin,Total 0.4 mg/dL (0.2-1.3); Blood Urea Nitrogen 41 mg/dL (9-20); Calcium 8.7 mg/dL (8.4-10.2); Carbon Dioxide 33 mmol/L (22-30); Chloride 100 mmol/L (98-107); Estimated CRCL calculation 67 ml/min; Estimated Glomerular Filt Rate 35; Glucose 106 mg/dL (65-110); Potassium 3.8 mmol/L (3.4-5.0); Sodium 139 mmol/L (137-145)
--- NOTE | 2022-11-20 08:32 | PM.PNPUL ---
Progress Note: A&P Assessment and Plan (1) Obesity hypoventilation syndrome: Code(s): E66.2 - Morbid (severe) obesity with alveolar hypoventilation Status: Acute Assessment and Plan: This 42-year-old man with? history of morbid obesity, has chronic hypercapnic respiratory failure related to obesity hypoventilation. Patient presented with acute on chronic hypercapnic respiratory failure as his obesity hypoventilation has been untreated. Patient has been on noninvasive ventilatory support via BIPAP to correct hypercapnic respiratory acidosis. While on very high BiPAP pressures, his arterial blood gases today showed a pH of 7.35 which is higher than the pH measured over the last week. PCO2 is around 55 mmHg. Plan: Await approval noninvasive ventilator for home use. Out of bed to chair, continue with incentive spirometry. Use BiPAP support p.r.n. during the day. ApneaLink on current settings of BiPAP and also supplemental oxygen 3 liters/minute. (2) ANIKET (acute kidney injury): Code(s): N17.9 - Acute kidney failure, unspecified Status: Acute (3) Polysubstance abuse: Code(s): F19.10 - Other psychoactive substance abuse, uncomplicated Status: Chronic (4) CKD (chronic kidney disease): Code(s): N18.9 - Chronic kidney disease, unspecified Status: Acute (5) History of narcotic addiction: Code(s): F11.21 - Opioid dependence, in remission Status: Acute (6) Major depressive disorder, recurrent, in remission: Code(s): F33.40 - Major depressive disorder, recurrent, in remission, unspecified Status: Acute Subjective Date/time seen: 11/20/22 08:32 Interval history: Patient slept well last night. Fully awake this morning, feels refreshed. Used BiPAP support last night. Had ABGs this a.m. Review of Systems Review of Systems: All systems reviewed & are unremarkable except as noted in HPI and below (HPI and below) Exam Narrative: GENERAL APPEARANCE: Well developed, well nourished, alert and cooperative, and appears to be in no acute distress while on supplemental oxygen via nasal cannula SKIN: Inspection of the skin reveals no rashes, ulcerations or petechiae. HEENT: Sclerae anicteric and conjunctivae pink and moist. Extraocular movements were intact and pupils were equal, round, and reactive to light. Dry oral mucosa NECK: Supple. There was no thyroid enlargement, and no tenderness, or masses were felt. CHEST: Normal AP diameter and normal contour without any kyphoscoliosis. LUNGS: Clear breath sounds bilaterally no wheezing. CARDIAC: There was a regular rate and rhythm without any murmurs, gallops, rubs. ABDOMEN: Soft and nontender with normal bowel sounds. There was no organomegaly. LYMPH NODES: No lymphadenopathy was appreciated in the neck. EXTREMITIES: No cyanosis, clubbing; trace pedal edema NEUROLOGIC: Alert and oriented x 3. Normal affect. Objective Data Vital Signs Vital Signs: Vital Signs - 24 hr 11/19/22 09:15 11/19/22 10:00 11/19/22 11:57 Temperature 36.6 C Pulse Rate 75 78 68 Respiratory Rate 18 Blood Pressure 120/64 Pulse Oximetry 97 Oxygen Delivery Oxygen Flow Rate Fraction of Inspired Oxygen 11/19/22 12:41 11/19/22 12:58 11/19/22 15:49 Temperature Pulse Rate 71 72 Respiratory Rate 20 20 20 Blood Pressure Pulse Oximetry 96 Oxygen Delivery BiPAP Oxygen Flow Rate Fraction of Inspired Oxygen 11/19/22 15:49 11/19/22 15:59 11/19/22 16:14 Temperature Pulse Rate 63 65 Respiratory Rate 18 18 Blood Pressure Pulse Oximetry 95 Oxygen Delivery BiPAP Oxygen Flow Rate Fraction of Inspired Oxygen 25 11/19/22 16:00 11/19/22 12:00 11/19/22 16:00 Temperature 37.1 C Pulse Rate 66 Respiratory Rate 23 H Blood Pressure 150/91 H Pulse Oximetry 96 95 94 Oxygen Delivery Nasal Cannula Nasal Cannula Oxygen Flow Rate 3 3 Fraction of Inspired Oxygen
[2022-11-20] MEDS: FUROSEMIDE INJ 40 MG/4 ML VIAL IV PUSH (08:52)
[2022-11-20] MEDS: LABETALOL HCL 100 MG TABLET 200 MG PO ×2 (08:52→21:10)
[2022-11-20] MEDS: amLODIPine BESYLATE 5 MG TABLET 10 MG PO (08:52)
[2022-11-20] MEDS: HEPARIN SODIUM 5,000 UNITS/ML VIAL 5000 UNITS SUB-Q ×2 (08:52→21:11)
[2022-11-20] MEDS: PANTOPRAZOLE SODIUM IV 40 MG VIAL IV PUSH (08:52)
[2022-11-20] MEDS: MULTIVITAMINS THERAPEUTIC TAB (*BKC) 1 TABLET PO (08:52)
[2022-11-20] MEDS: SERTRALINE HCL 50 MG TABLET 150 MG PO (08:52)
[2022-11-20] MEDS: GABAPENTIN 300 MG CAPSULE PO (08:52)
[2022-11-20] MEDS: busPIRone HCL 10 MG TABLET PO ×2 (08:53→18:17)
[2022-11-20 10:27] LABS: ANCA Screen Negative (Negative)
--- NOTE | 2022-11-20 13:15 | PM.PNNEP ---
Progress Note: A&P Assessment and Plan (1) ANIKET (acute kidney injury): Code(s): N17.9 - Acute kidney failure, unspecified Status: Acute Assessment and Plan: improvement noted evaluation to date: renal ultrasound without obstruction urine electrolytes prerenal contrast exposure noted as well urine eosinophils negative CPK not done -- will reorder follow-up on serologies suspect etiology is a combination of dehydration plus ATN from the contrast exposure losartan is on hold s/p diuretic therapy follow on repeat labs and UOP (2) Stage 3a chronic kidney disease: Code(s): N18.31 - Chronic kidney disease, stage 3a Status: Chronic Assessment and Plan: creatinine running around 1.4 - 1.7mg/dl about a year ago thought to be secondary to hypertension and obesity however, his known history of polysubstance abuse may have played a role along with untreated BRICE possible new baseline creatinine (1.9 - 2.3mg/dl)??? (3) Hyperkalemia: Code(s): E87.5 - Hyperkalemia Status: Acute Assessment and Plan: doing better follow repeat levels (4) Pneumonia: Code(s): J18.9 - Pneumonia, unspecified organism Status: Acute Assessment and Plan: suggestion by CXR CT of chest with tree-in-bud opacities and centrilobular nodules, predominantly in the right upper lobe, consistent with small airways infectious process on antibiotics (5) Obesity hypoventilation syndrome: Code(s): E66.2 - Morbid (severe) obesity with alveolar hypoventilation Status: Chronic Assessment and Plan: Pulmonary following ABGs noted on BiPAP support (6) Essential (primary) hypertension: Code(s): I10 - Essential (primary) hypertension Status: Chronic Assessment and Plan: reasonable control on amlodipine and labetalol losartan on hold follow trend of hemodynamics (7) Polysubstance abuse: Code(s): F19.10 - Other psychoactive substance abuse, uncomplicated Status: Chronic Assessment and Plan: playing a role with #1(?) supportive therapy Will continue to follow. Subjective Date/time seen: 11/20/22 13:15 Interval history: Follow-up for acute kidney injury/acute renal failure on chronic kidney disease. Renal function relatively stable; respiratory status continues to improve with current interventions/therapy; no apparent distress voiced at the time of my visit. Exam Narrative: General: large male in NAD; off BiPAP and eating lunch Heart: normal S1 and S2; no rub Lungs: clear anteriorly Abdomen: soft, nontender, nondistended, positive bowel sounds Extremities: no cyanosis or clubbing; no edema Skin: no nodules Objective Data Vital Signs Vital Signs: Vital Signs Temp Pulse Resp BP Pulse Ox O2 Del Method O2 Flow Rate 11/20/22 12:00 98.5 F 68 12 131/54 L 98 11/20/22 11:20 65 20 11/20/22 11:06 64 20 11/20/22 08:00 98 BiPAP 11/20/22 10:00 73 11/20/22 08:00 77 11/20/22 08:52 78 11/20/22 08:00 98.1 F 68 12 178/79 H 98 11/20/22 07:36 59 L 20 11/20/22 07:17 61 20 11/20/22 07:17 97 BiPAP 11/20/22 07:17 61 20 97 BiPAP 11/20/22 07:13 73 11/20/22 04:00 62 11/20/22 05:12 65 18 11/20/22 05:10 65 18 95 BiPAP 11/20/22 05:00 68 18 11/20/22 04:00 97.6 F 64 19 155/91 H 94 11/20/22 04:00 95 BiPAP 11/20/22 01:06 67 18 11/20/22 00:00 66 11/20/22 00:55 64 18 95 BiPAP 11/20/22 00:55 65 18 11/20/22 00:00 96 BiPAP 11/20/22 00:18 97.9 F 80 22 H 125/66 94 11/19/22 20:35 69 22 H 97 BiPAP 11/19/22 20:00 67 11/19/22 20:00 95 BiPAP 11/19/22 20:48 98.4 F 65 20 144/82 H 95 11/19/22 20:28 72 20 11/19/22 20:28 94 BiPAP 11/19/22 20:28 20 9
--- NOTE | 2022-11-20 13:15 | P.PNNP_ITS ---
Progress Note: A&P Assessment and Plan (1) ANIKET (acute kidney injury): Code(s): N17.9 - Acute kidney failure, unspecified Status: Acute Assessment and Plan: * improvement noted * evaluation to date: * renal ultrasound without obstruction * urine electrolytes prerenal * contrast exposure noted as well * urine eosinophils negative * CPK not done -- will reorder * follow-up on serologies * suspect etiology is a combination of dehydration plus ATN from the contrast exposure * losartan is on hold * s/p diuretic therapy * follow on repeat labs and UOP (2) Stage 3a chronic kidney disease: Code(s): N18.31 - Chronic kidney disease, stage 3a Status: Chronic Assessment and Plan: * creatinine running around 1.4 - 1.7mg/dl about a year ago * thought to be secondary to hypertension and obesity * however, his known history of polysubstance abuse may have played a role along with untreated BRICE * possible new baseline creatinine (1.9 - 2.3mg/dl)??? (3) Hyperkalemia: Code(s): E87.5 - Hyperkalemia Status: Acute Assessment and Plan: * doing better * follow repeat levels (4) Pneumonia: Code(s): J18.9 - Pneumonia, unspecified organism Status: Acute Assessment and Plan: * suggestion by CXR * CT of chest with tree-in-bud opacities and centrilobular nodules, predominan tly in the right upper lobe, consistent with small airways infectious process * on antibiotics (5) Obesity hypoventilation syndrome: Code(s): E66.2 - Morbid (severe) obesity with alveolar hypoventilation Status: Chronic Assessment and Plan: * Pulmonary following * ABGs noted * on BiPAP support (6) Essential (primary) hypertension: Code(s): I10 - Essential (primary) hypertension Status: Chronic Assessment and Plan: * reasonable control * on amlodipine and labetalol * losartan on hold * follow trend of hemodynamics (7) Polysubstance abuse: Code(s): F19.10 - Other psychoactive substance abuse, uncomplicated Status: Chronic Assessment and Plan: * playing a role with #1(?) * supportive therapy Will continue to follow. Subjective Date/time seen: 11/20/22 13:15 Interval history: Follow-up for acute kidney injury/acute renal failure on chronic kidney disease. Renal function relatively stable; respiratory status continues to improve with current interventions/therapy; no apparent distress voiced at the time of my visit. Exam Narrative: General: large male in NAD; off BiPAP and eating lunch Heart: normal S1 and S2; no rub Lungs: clear anteriorly Abdomen: soft, nontender, nondistended, positive bowel sounds Extremities: no cyanosis or clubbing; no edema Skin: no nodules Objective Data Vital Signs Vital Signs: Vital Signs Temp Pulse Resp BP Pulse Ox O2 Del Method O2 Flow Rate 11/20/22 12:00 98.5 F 68 12 131/54 L 98 11/20/22 11:20 65 20 11/20/22 11:06 64 20 11/20/22 08:00 98 BiPAP 11/20/22 10:00 73 11/20/22 08:00 77 11/20/22 08:52 78 11/20/22 08:00 98.1 F 68 12 178/79 H 98 11/20/22 07:36 59 L 20 11/20/22 07:17 61 20 11/20/22 07:17 97 BiPAP 1
--- NOTE | 2022-11-20 14:22 | PM.IMPN ---
Progress Note: A&P Assessment and Plan (1) CKD (chronic kidney disease): Code(s): N18.9 - Chronic kidney disease, unspecified Status: Acute Assessment and Plan: Creatinine at baseline (2) Polysubstance abuse: Code(s): F19.10 - Other psychoactive substance abuse, uncomplicated Status: Chronic Assessment and Plan: patient undergoing rehab prior to admission (3) Obstructive sleep apnea syndrome: Code(s): G47.33 - Obstructive sleep apnea (adult) (pediatric) Status: Acute (4) Hyperkalemia: Code(s): E87.5 - Hyperkalemia Status: Acute Assessment and Plan: resolved (5) Facial swelling: Code(s): R22.0 - Localized swelling, mass and lump, head Status: Acute (6) Conjunctivitis, right eye: Code(s): H10.9 - Unspecified conjunctivitis Status: Acute Plan acute on chronic hypercapnic respiratory failure? Pulmonology considers obesity hypoventilation syndrome Continue BIPAP and oxygen titration per Pulmonology Patient was at [facility] getting treatment for substance abuse: opioids and alcohol. Await approval noninvasive ventilator for home use. Hyperkalemia resolved, Cr still elevated, but stable at his baseline Community-acquired pneumonia CT chest shows tree-in-bud opacities and centrilobular nodules predominantly in right upper lobe consistent with small airways infectious process.? Continue Rocephin Pulmonary congestion started Lasix 40mg bid, prior CXR showed cardiomagaly with pulm edema repeat CXR in the AM November 20 that shows minimal right basilar atelectasis otherwise clear lungs Discontinue Lasix Right eye conjunctivitis, right pupil dilation Per nurse report, patient was found right pupil dilated in past 2 days, patient also few itchy and somewhat painful of right eye Patient has congestion of right eye, some discharge Suspecting conjunctivitis But need to rule out acute intracranial issues CT head November shows no acute intracranial issues Order MRI without contrast Start Cipro eyedrops 1-2 jobs every 2 hours for 2 days and q.4 hours for 5 days Plan is to discharge patient back to rehab center on [facility] pulmonology following DVT prophylaxis On heparin sq Subjective Date/time seen: 11/20/22 14:22 Interval history: I saw exam patient today. Patient is on nasal cannula during the day, patient denies chest pain abdomen pain. Patient states he has been have right pupil dilation more than 2 days, and some blurred vision on and off. Patient also few itchy and pain of right eye. Exam Narrative: GENERAL: Well-developed, well-nourished, and in no acute distress. HEAD: Normocephalic, atraumatic. On BiPAP EYES: Right pupil dilated, responsive to light, congestion of right eye, eOMI. edema of the bilateral eyes ENT: Nares clear, no rhinorrhea or epistaxis.? Mucous membranes moist.? CHEST: Diminished breath sounds bilaterally no respiratory distress.? No wheezes rales or rhonchi HEART: Regular rate and rhythm.? No murmur heard.? Normal peripheral pulses. ABDOMEN: Soft, nontender, nondistended, normal active bowel sounds. EXTREMITIES: Normal range of motion.? Trace bilateral lower extremity edema SKIN: Warm, dry, no rash. NEURO:? Alert and oriented x3. Moving all 4 limbs purposefully. PSYCH: calm and cooperative Objective Data Vital Signs Vital Signs: Vital Signs - 24 hr 11/19/22 15:49 11/19/22 15:49 11/19/22 15:59 Temperature Pulse Rate 63 65 Respiratory Rate 20 18 18 Blood Pressure Pulse Oximetry 96 Oxygen Delivery BiPAP Oxygen Flow Rate Fraction of Inspired Oxygen 11/19/22 16:14 11/19/22 16:00 11/19/22 16:00 Temperature 98.8 F Pulse Rate 66 Respiratory Rate 23 H Blood Pressure 150/91 H Pulse Oximetry 95 96 94 Oxygen Delivery BiPAP Nasal Cannula Oxygen Flow Rate 3 Fraction of Inspired Oxygen 25 11/19/22 16:00 11/19/22 18:00 11/19/22 20:21
[2022-11-20] MEDS: CIPROFLOXACIN HCL 0.3% OP SOLN 2.5 ML BTL 2 DROP EACH EYE ×2 (18:13→21:10)
[2022-11-20] MEDS: PANTOPRAZOLE 40 MG TABLET PO (21:10)
[2022-11-21] VITALS (36 sets, daily range): BP systolic 130–168; BP diastolic 70–91; PULSE 55–77; RESP 12–22; TEMP 36.2–37.2; O2SAT 87–99
[2022-11-21 06:40] LABS: Basophils Percent Auto 0.5 % (0.2-1.2); Eosinophils Absolute Auto 0.4 K/mm3 (0-0.3); Eosinophils Percent Auto 5.8 % (0-4.4); Hematocrit 33.8 % (42.0-52.0); Hemoglobin 10.5 g/dL (14.0-18.0); Immature Granulocyte Absolute 0.02 K/mm3 (0.00-0.031); Immature Granulocyte Percent A 0.3 % (0-0.5); Lymphocytes Absolute Auto 2.29 K/mm3 (0.9-3.2); Mean Corpuscular HGB Conc 31.1 g/dl (32-36); Mean Corpuscular Hemoglobin 30.2 pg (26-34); Mean Corpuscular Volume 97.1 fl (80-100); Mean Platelet Volume 10.5 fl (7.4-10.4); Monocytes Absolute Auto 0.6 K/mm3 (0.1-0.6); Monocytes Percent Auto 8.3 % (2.6-8.5); Neutrophils Percent Auto 54.1 % (45.5-73.1); Platelet Count Result 216 k/mm3 (150-375); Red Blood Count 3.48 M/mm3 (4.6-6.20); Red Cell Distribution Width 13.2 % (11.5-14.5); White Blood Count 7.4 K/mm3 (4.5-10.0)
[2022-11-21 06:50] LABS: Alanine Aminotransferase 17 U/L (6-50); Albumin Level 3.6 g/dL (3.5-5.1); Alkaline Phosphatase 56 U/L (38-126); Anion Gap 2 mmol/L (8-16); Aspartate Amino Transferase 26 U/L (17-59); Bilirubin,Total 0.5 mg/dL (0.2-1.3); Blood Urea Nitrogen 36 mg/dL (9-20); Calcium 8.5 mg/dL (8.4-10.2); Carbon Dioxide 35 mmol/L (22-30); Chloride 98 mmol/L (98-107); Estimated CRCL calculation 83 ml/min; Estimated Glomerular Filt Rate 44; Glucose 108 mg/dL (65-110); Potassium 3.7 mmol/L (3.4-5.0); Sodium 135 mmol/L (137-145)
[2022-11-21 06:55] LABS: Phosphorus 3.2 mg/dL (2.5-4.5)
[2022-11-21] MEDS: IPRATROPIUM BR 0.02% INH SOLN 0.5 MG/2.5 ML VIAL INHALATION ×4 (07:49→19:53)
[2022-11-21] MEDS: ALBUTEROL SULFATE NEB 2.5 MG/3 ML INH INHALATION ×4 (07:49→19:52)
--- NOTE | 2022-11-21 09:32 | PM.PNNEP ---
Progress Note: A&P Assessment and Plan (1) ANIKET (acute kidney injury): Code(s): N17.9 - Acute kidney failure, unspecified Status: Acute Assessment and Plan: improvement noted evaluation to date: renal ultrasound without obstruction urine electrolytes prerenal contrast exposure noted as well urine eosinophils negative CPK not done -- will reorder follow-up on serologies suspect etiology is a combination of dehydration plus ATN from the contrast exposure losartan is on hold s/p diuretic therapy follow on repeat labs and UOP (2) Stage 3a chronic kidney disease: Code(s): N18.31 - Chronic kidney disease, stage 3a Status: Chronic Assessment and Plan: creatinine running around 1.4 - 1.7mg/dl about a year ago thought to be secondary to hypertension and obesity however, his known history of polysubstance abuse may have played a role along with untreated BRICE possible new baseline creatinine?? (3) Hyperkalemia: Code(s): E87.5 - Hyperkalemia Status: Acute Assessment and Plan: doing better follow repeat levels (4) Pneumonia: Code(s): J18.9 - Pneumonia, unspecified organism Status: Acute Assessment and Plan: suggestion by CXR CT of chest with tree-in-bud opacities and centrilobular nodules, predominantly in the right upper lobe, consistent with small airways infectious process on antibiotics (5) Obesity hypoventilation syndrome: Code(s): E66.2 - Morbid (severe) obesity with alveolar hypoventilation Status: Chronic Assessment and Plan: Pulmonary following ABGs noted on BiPAP support (6) Essential (primary) hypertension: Code(s): I10 - Essential (primary) hypertension Status: Chronic Assessment and Plan: reasonable control on amlodipine and labetalol losartan on hold follow trend of hemodynamics (7) Polysubstance abuse: Code(s): F19.10 - Other psychoactive substance abuse, uncomplicated Status: Chronic Assessment and Plan: playing a role with #1(?) supportive therapy Will continue to follow. Subjective Date/time seen: 11/21/22 09:32 Interval history: Follow-up for acute kidney injury/acute renal failure on chronic kidney disease. Respiratory status seems stable if not improved; currently on supplemental O2 by nasal cannula and using BiPAP at night; renal function seems stable if not better with good urine output (without the need for diuretic therapy); no apparent distress noted; no issues overnight or earlier this morning. Exam Narrative: General: large WD/WN male in NAD Heart: normal S1 and S2; no rub Lungs: clear anteriorly bu coarse at bases Abdomen: soft, nontender, nondistended, positive bowel sounds Extremities: no cyanosis or clubbing; no edema Skin: warm and dry Objective Data Vital Signs Vital Signs: Vital Signs Temp Pulse Resp BP Pulse Ox O2 Del Method O2 Flow Rate 11/21/22 09:05 62 11/21/22 08:00 98.2 F 56 L 18 130/80 96 11/21/22 07:59 68 18 11/21/22 07:52 94 Nasal Cannula 3 11/21/22 07:51 64 18 11/21/22 06:24 64 18 94 BiPAP 11/21/22 05:50 58 L 11/21/22 04:00 67 11/21/22 03:52 63 16 93 BiPAP 11/21/22 03:47 97.3 F L 61 22 H 140/70 98 11/21/22 03:48 62 20 97 BiPAP 11/21/22 02:26 63 17 94 BiPAP 11/21/22 01:46 61 11/21/22 00:00 65 11/21/22 00:00 63 18 94 BiPAP 11/20/22 23:46 62 20 11/20/22 23:39 66 20 96 BiPAP 11/20/22 23:19 97.8 F 67 20 136/72 94 11/20/22 22:00 66 11/20/22 20:00 68 11/20/22 22:26 60 23 H 98 BiPAP 11/20/22 20:00 64 96 Nasal Cannula 3 11/20/22 21:10 67 11/20/22 21:08 97.8 F 64 22 H 140/73 97 11/20/22 20:11 66 20 11/20/22 20:05 99 Nasal Cannula 3 11/20/22 20:04 66 20
--- NOTE | 2022-11-21 09:32 | P.PNNP_ITS ---
Progress Note: A&P Assessment and Plan (1) ANIKET (acute kidney injury): Code(s): N17.9 - Acute kidney failure, unspecified Status: Acute Assessment and Plan: * improvement noted * evaluation to date: * renal ultrasound without obstruction * urine electrolytes prerenal * contrast exposure noted as well * urine eosinophils negative * CPK not done -- will reorder * follow-up on serologies * suspect etiology is a combination of dehydration plus ATN from the contrast exposure * losartan is on hold * s/p diuretic therapy * follow on repeat labs and UOP (2) Stage 3a chronic kidney disease: Code(s): N18.31 - Chronic kidney disease, stage 3a Status: Chronic Assessment and Plan: * creatinine running around 1.4 - 1.7mg/dl about a year ago * thought to be secondary to hypertension and obesity * however, his known history of polysubstance abuse may have played a role along with untreated BRICE * possible new baseline creatinine?? (3) Hyperkalemia: Code(s): E87.5 - Hyperkalemia Status: Acute Assessment and Plan: * doing better * follow repeat levels (4) Pneumonia: Code(s): J18.9 - Pneumonia, unspecified organism Status: Acute Assessment and Plan: * suggestion by CXR * CT of chest with tree-in-bud opacities and centrilobular nodules, predominantly in the right upper lobe, consistent with small airways infectious process * on antibiotics (5) Obesity hypoventilation syndrome: Code(s): E66.2 - Morbid (severe) obesity with alveolar hypoventilation Status: Chronic Assessment and Plan: * Pulmonary following * ABGs noted * on BiPAP support (6) Essential (primary) hypertension: Code(s): I10 - Essential (primary) hypertension Status: Chronic Assessment and Plan: * reasonable control * on amlodipine and labetalol * losartan on hold * follow trend of hemodynamics (7) Polysubstance abuse: Code(s): F19.10 - Other psychoactive substance abuse, uncomplicated Status: Chronic Assessment and Plan: * playing a role with #1(?) * supportive therapy Will continue to follow. Subjective Date/time seen: 11/21/22 09:32 Interval history: Follow-up for acute kidney injury/acute renal failure on chronic kidney disease. Respiratory status seems stable if not improved; currently on supplemental O2 by nasal cannula and using BiPAP at night; renal function seems stable if not better with good urine output (without the need for diuretic therapy); no apparent distress noted; no issues overnight or earlier this morning. Exam Narrative: General: large WD/WN male in NAD Heart: normal S1 and S2; no rub Lungs: clear anteriorly bu coarse at bases Abdomen: soft, nontender, nondistended, positive bowel sounds Extremities: no cyanosis or clubbing; no edema Skin: warm and dry Objective Data Vital Signs Vital Signs: Vital Signs Temp Pulse Resp BP Pulse Ox O2 Del Method O2 Flow Rate 11/21/22 09:05 62 11/21/22 08:00 98.2 F 56 L 18 130/80 96 11/21/22 07:59 68 18 11/21/22 07:52 94 Nasal Cannula 3 11/21/22 07:51 64 18 11/21/22 06:24 64 18 94 BiPAP 11/21/22 05:50 58 L 11/21/22 04:00 67
[2022-11-21] MEDS: CIPROFLOXACIN HCL 0.3% OP SOLN 2.5 ML BTL 2 DROP EACH EYE ×4 (10:03→20:28)
[2022-11-21] MEDS: MULTIVITAMINS THERAPEUTIC TAB (*BKC) 1 TABLET PO (10:04)
[2022-11-21] MEDS: HEPARIN SODIUM 5,000 UNITS/ML VIAL 5000 UNITS SUB-Q ×2 (10:04→20:30)
[2022-11-21] MEDS: LABETALOL HCL 100 MG TABLET 200 MG PO ×2 (10:05→20:30)
[2022-11-21] MEDS: GABAPENTIN 300 MG CAPSULE PO (10:05)
[2022-11-21] MEDS: SERTRALINE HCL 50 MG TABLET 150 MG PO (10:05)
[2022-11-21] MEDS: busPIRone HCL 10 MG TABLET PO ×2 (10:05→16:47)
[2022-11-21] MEDS: amLODIPine BESYLATE 5 MG TABLET 10 MG PO (10:05)
[2022-11-21] MEDS: PANTOPRAZOLE 40 MG TABLET PO ×2 (10:05→20:30)
--- NOTE | 2022-11-21 10:05 | PM.IMPN ---
Progress Note: A&P Assessment and Plan (1) CKD (chronic kidney disease): Code(s): N18.9 - Chronic kidney disease, unspecified Status: Acute Assessment and Plan: Creatinine at baseline (2) Polysubstance abuse: Code(s): F19.10 - Other psychoactive substance abuse, uncomplicated Status: Chronic Assessment and Plan: patient undergoing rehab prior to admission (3) Obstructive sleep apnea syndrome: Code(s): G47.33 - Obstructive sleep apnea (adult) (pediatric) Status: Acute (4) Hyperkalemia: Code(s): E87.5 - Hyperkalemia Status: Acute Assessment and Plan: resolved (5) Facial swelling: Code(s): R22.0 - Localized swelling, mass and lump, head Status: Acute (6) Conjunctivitis, right eye: Code(s): H10.9 - Unspecified conjunctivitis Status: Acute Plan acute on chronic hypercapnic respiratory failure?10/ Pulmonology considers obesity hypoventilation syndrome Continue BIPAP and oxygen titration per Pulmonology Patient was at [place] getting treatment for substance abuse: opioids and alcohol. Await approval noninvasive ventilator for home use. Hyperkalemia resolved, Cr still elevated, but stable at his baseline Community-acquired pneumonia CT chest shows tree-in-bud opacities and centrilobular nodules predominantly in right upper lobe consistent with small airways infectious process.? Continue Rocephin Pulmonary congestion started Lasix 40mg bid, prior CXR showed cardiomagaly with pulm edema repeat CXR in the AM November 20 that shows minimal right basilar atelectasis otherwise clear lungs Discontinue Lasix Right eye conjunctivitis, right pupil dilation Per nurse report, patient was found right pupil dilated in past 2 days, patient also few itchy and somewhat painful of right eye Patient has congestion of right eye, some discharge Suspecting conjunctivitis But need to rule out acute intracranial issues CT head November shows no acute intracranial issues Start Cipro eyedrops 1-2 jobs every 2 hours for 2 days and q.4 hours for 5 days 11/21 right eye and resolves, no discharge, still some redness on the right on eye. PERRLA CTA of head unremarkable possible conjunctivitis Plan to discharge patient back to rehab center on [facility] following DVT prophylaxis On heparin sq Subjective Date/time seen: 11/21/22 10:05 Interval history: I saw exam patient. Patient feels better, patient needed BiPAP in the night, patient feels eye pain has resolved, no discharge from right eye Exam Narrative: GENERAL: Well-developed, well-nourished, and in no acute distress. HEAD: Normocephalic, atraumatic. On BiPAP EYES: PERRLA, congestion of right eye, eOMI. ENT: Nares clear, no rhinorrhea or epistaxis.? Mucous membranes moist.? CHEST: Diminished breath sounds bilaterally no respiratory distress.? No wheezes rales or rhonchi HEART: Regular rate and rhythm.? No murmur heard.? Normal peripheral pulses. ABDOMEN: Soft, nontender, nondistended, normal active bowel sounds. EXTREMITIES: Normal range of motion.? Trace bilateral lower extremity edema SKIN: Warm, dry, no rash. NEURO:? Alert and oriented x3. Moving all 4 limbs purposefully. PSYCH: calm and cooperative Objective Data Vital Signs Vital Signs: Vital Signs - 24 hr 11/20/22 11:06 11/20/22 11:20 11/20/22 12:00 Temperature 98.5 F Pulse Rate 64 65 68 Respiratory Rate 20 20 12 Blood Pressure 131/54 L Pulse Oximetry 98 Oxygen Delivery Oxygen Flow Rate Fraction of Inspired Oxygen 11/20/22 15:27 11/20/22 15:39 11/20/22 16:00 Temperature 98.1 F Pulse Rate 69 66 65 Respiratory Rate 20 20 12 Blood Pressure 139/72 Pulse Oximetry 98 Oxygen Delivery Oxygen Flow Rate Fraction of Inspired Oxygen 11/20/22 12:00 11/20/22 16:00 11/20/22 12:00 Temperature Pulse Rate 66 Respiratory Rate Blood Pressure Pulse
--- NOTE | 2022-11-21 10:12 | PCNWS ---
Weekly nutritional screen. Patient is tolerating current diet with adequate intake. No weight loss reported. No nutritional needs at this time.
--- NOTE | 2022-11-21 10:32 | PM.PNPUL ---
Progress Note: A&P Assessment and Plan (1) Obesity hypoventilation syndrome: Code(s): E66.2 - Morbid (severe) obesity with alveolar hypoventilation Status: Chronic Assessment and Plan: This 42-year-old man with? history of morbid obesity, has chronic hypercapnic respiratory failure related to obesity hypoventilation. Patient presented with acute on chronic hypercapnic respiratory failure as his obesity hypoventilation has been untreated. Patient has been on noninvasive ventilatory support via BIPAP to correct hypercapnic respiratory acidosis. While on very high BiPAP pressures, his last arterial blood gases are now better, with nl Ph and lower PCO2. ApneaLink last night on BiPAP 22/8, respiratory rate 18, FiO2 0.25 showed no evidence of oxyhemoglobin desaturation. Plan: Await approval of noninvasive ventilator for home use. Out of bed to chair, continue with incentive spirometry. Use BiPAP support p.r.n. during the day. (2) ANIKET (acute kidney injury): Code(s): N17.9 - Acute kidney failure, unspecified Status: Acute (3) Polysubstance abuse: Code(s): F19.10 - Other psychoactive substance abuse, uncomplicated Status: Chronic (4) CKD (chronic kidney disease): Code(s): N18.9 - Chronic kidney disease, unspecified Status: Acute (5) History of narcotic addiction: Code(s): F11.21 - Opioid dependence, in remission Status: Acute (6) Major depressive disorder, recurrent, in remission: Code(s): F33.40 - Major depressive disorder, recurrent, in remission, unspecified Status: Acute Subjective Date/time seen: 11/21/22 10:32 Interval history: Patient has no new respiratory symptoms. Remains on supplemental oxygen via nasal cannula. Used BiPAP support last night. Had ApneaLink monitoring. Review of Systems Review of Systems: All systems reviewed & are unremarkable except as noted in HPI and below (HPI and B) Exam Narrative: GENERAL APPEARANCE: Well developed, well nourished, alert and cooperative, and appears to be in no acute distress while on supplemental oxygen via nasal cannula SKIN: Inspection of the skin reveals no rashes, ulcerations or petechiae. HEENT: Sclerae anicteric and conjunctivae pink and moist. Extraocular movements were intact and pupils were equal, round, and reactive to light. Dry oral mucosa NECK: Supple. There was no thyroid enlargement, and no tenderness, or masses were felt. CHEST: Normal AP diameter and normal contour without any kyphoscoliosis. LUNGS: Clear breath sounds bilaterally no wheezing. CARDIAC: There was a regular rate and rhythm without any murmurs, gallops, rubs. ABDOMEN: Soft and nontender with normal bowel sounds. There was no organomegaly. LYMPH NODES: No lymphadenopathy was appreciated in the neck. EXTREMITIES: No cyanosis, clubbing; trace pedal edema NEUROLOGIC: Alert and oriented x 3. Normal affect. Objective Data Vital Signs Vital Signs: Vital Signs - 24 hr 11/20/22 11:06 11/20/22 11:20 11/20/22 12:00 Temperature 36.9 C Pulse Rate 64 65 68 Respiratory Rate 20 20 12 Blood Pressure 131/54 L Pulse Oximetry 98 Oxygen Delivery Oxygen Flow Rate Fraction of Inspired Oxygen 11/20/22 15:27 11/20/22 15:39 11/20/22 16:00 Temperature 36.7 C Pulse Rate 69 66 65 Respiratory Rate 20 20 12 Blood Pressure 139/72 Pulse Oximetry 98 Oxygen Delivery Oxygen Flow Rate Fraction of Inspired Oxygen 11/20/22 12:00 11/20/22 16:00 11/20/22 12:00 Temperature Pulse Rate 66 Respiratory Rate Blood Pressure Pulse Oximetry 98 98 Oxygen Delivery Nasal Cannula Nasal Cannula Oxygen Flow Rate 3 3 Fraction of Inspired Oxygen 11/20/22 14:00 11/20/22 16:00 11/20/22 18:00 Temperature Pulse Rate 68 66 76 Respiratory Rate Blood Pressure Pulse Oximetry Oxygen Delivery Oxygen Flow Rate Fraction of Inspired Oxygen 11/20/22 20:04
--- NOTE | 2022-11-21 12:18 | WPDNEURCNPN ---
Assessment and Plan Assessment and plan (1) Anisocoria: Code(s): H57.02 - Anisocoria Status: Acute Plan Consulted for R sided anisocria. R pupil is larger than left but reactive. No other focal deficits noted on exam. Could be physiologic or medication induced anisocoria but will need more detailed neuroimaging to rule out secondary casue. Obtain CTA brain to evaluate for aneurysm. If unrevealing, patient will eventually need MRI brain with and without contrast. Consult date: 11/21/22 Reason for consult: Anisicoria HPI: Kuldeep Torres is a 42 year old male with a history of polysubstance abuse who was admitted for respiratory failure and ANIKET. During the admission, staff noted that his right eye is more dilated compared to the left. Patient was not aware of this finding prior to admission. He has some blurry vision but denies any double vision or loss of vision. He denies any headaches. No other focal neurological symptoms. CT head was done during this admission which was negative for any obvious pathology. He is unable to get an MRI brain here due to his size. He has been getting ciprofloxacin eye drops for bilateral conjunctivitis. He denies any recent trauma to the head. Review of Systems Review of Systems: All systems reviewed & are unremarkable except as noted in HPI and below PMFSH Past Medical History Medical History Alcohol abuse Essential (primary) hypertension History of narcotic addiction Major depressive disorder, recurrent, in remission Migraines Obstructive sleep apnea syndrome Surgical History Surgical History Fracture of left forearm s/p ORIF Family History Family History Mother Diabetes mellitus Hypertension Father Hypertension Cerebrovascular accident Social History Social History Social History: Patient is currently homeless. Previously lived at [facility] until he began drinking again and he lost his job. Surrogate decision maker is Missael Del Cid, brother. Full Code. Smoking packs per day: 1 Smoking cigarettes per day: 20.0 Years smoked: 14 Smoking pack-years: 14.00 Smoking status: Current every day smoker Tobacco type: cigarettes Second hand tobacco smoke exposure: No Smoking end date: 08/09/12 Alcohol intake: current Substance use: never Substance use type: does not use Other substance usage details: fentanyl last use - 10/31/22 methamphetamine last use - 11/03/22 Lack of Transportation: YES Lack of Food: Sometimes True Current Housing: I Do Not Have Housing Concerned About Future Housing: YES Difficulty Paying Gas/Electric Bills: YES Difficulty Paying for Meds: YES Currently Unemployed: YES Education: Associate Degree Difficulty w/ Childcare or Family Care: No Living arrangements: with family Occupation/Education: occupation Gender identity (if verbalized by the patient): Male Spiritual care concerns: No Meds Home Medications and Allergies Home Medications Medication Instructions Recorded Confirmed Type amlodipine 10 mg tablet See Rx Instructions .Route 08/06/21 11/12/22 Rx .COMPLEX #90 tabs sertraline 100 mg tablet 150 mg PO DAILY #135 tabs 08/06/21 11/12/22 Rx losartan 100 mg tablet See Rx Instructions .Route 11/22/21 11/12/22 Rx .COMPLEX #90 tabs labetalol 200 mg tablet See Rx Instructions .Route 07/15/22 11/12/22 Rx .COMPLEX #180 tabs buprenorphine 4 mg-naloxone 1 mg 1 film buccal BID 11/12/22 11/12/22 History sublingual film (Suboxone) buprenorphine 8 mg-naloxone 2 mg 1 film buccal PRN PRN cravings 11/12/22 11/12/22 History sublingual film (Suboxone) buspirone 10 mg tablet 10 mg PO BID 11/12/22 11/12/22 History gabapentin 300 mg capsule 300 mg DAILY 11/12/22 11/12/22 H
--- NOTE | 2022-11-21 15:17 | PCRCNOTE ---
HOME O2 EVAL COMPLETE, PT REQUIRES 2 L AT REST AND WITH ACTIVITY. PT WILL BE SET UP WITH O2 WITH [facility]. ORDER FAXED TO LYNNE AT [facility].
--- NOTE | 2022-11-21 15:18 | HOMEO2EVAL ---
Evaluation was performed at [facility] Home Oxygen Evaluation RC: Home Oxygen (O2) Evaluation Start: 11/21/22 13:39 Freq: ONCE Status: Active Protocol: RPE Activity Type Activity Date Activity User E-sign Co-sign Detail Recorded Client Recorded Date Recorded By Document 11/21/22 15:00 UZIEL [email or web address] 11/21/22 15:17 UZIEL Document 11/21/22 15:01 UZIEL [email or web address] 11/21/22 15:17 UZIEL Document 11/21/22 15:02 UZIEL [email or web address] 11/21/22 15:17 UZIEL Document 11/21/22 15:06 UZIEL [email or web address] 11/21/22 15:17 UZIEL Document 11/21/22 15:15 UZIEL [email or web address] 11/21/22 15:17 UZIEL 11/21/22 11/21/22 11/21/22 15:00 15:01 15:02 Home O2 Evaluation [Oxygen] -Test Phase Resting Resting Resting -Oxygen Delivery Room Air Nasal Cannula Nasal Cannula -Oxygen Flow Rate (L/min) 1 2 [Pulse Oximetry] -Pulse Oximetry (90-100 %) 87 L 88 L 93 [Comments] -Home Oxygen Evaluation Comments [Charges] -Treatment Charges O2 Evaluation - Inpatient 11/21/22 11/21/22 15:06 15:15 Home O2 Evaluation [Oxygen] -Test Phase Exercise Resting -Oxygen Delivery Nasal Cannula Nasal Cannula -Oxygen Flow Rate (L/min) 2 2 [Pulse Oximetry] -Pulse Oximetry (90-100 %) 90 94 [Comments] -Home Oxygen Evaluation Comments PT REQUIRES 2 L HOME O2 WITH REST AND ACTIVITY [Charges] -Treatment Charges
[2022-11-21] MEDS: MELATONIN 5 MG TABLET PO (21:37)
[2022-11-22] VITALS (27 sets, daily range): BP systolic 108–188; BP diastolic 49–81; PULSE 55–80; RESP 18–24; TEMP 36.3–36.9; O2SAT 97–100
[2022-11-22] MEDS: IPRATROPIUM BR 0.02% INH SOLN 0.5 MG/2.5 ML VIAL INHALATION ×3 (00:06→07:48)
[2022-11-22] MEDS: ALBUTEROL SULFATE NEB 2.5 MG/3 ML INH INHALATION ×3 (00:06→07:48)
[2022-11-22 05:08] LABS: Basophils Percent Auto 0.4 % (0.2-1.2); Eosinophils Absolute Auto 0.5 K/mm3 (0-0.3); Eosinophils Percent Auto 7.1 % (0-4.4); Hematocrit 33.7 % (42.0-52.0); Hemoglobin 10.3 g/dL (14.0-18.0); Immature Granulocyte Absolute 0.03 K/mm3 (0.00-0.031); Immature Granulocyte Percent A 0.4 % (0-0.5); Lymphocytes Absolute Auto 2.01 K/mm3 (0.9-3.2); Lymphocytes Percent Auto 27.8 % (18.3-44.2); Mean Corpuscular HGB Conc 30.6 g/dl (32-36); Mean Corpuscular Hemoglobin 29.9 pg (26-34); Mean Corpuscular Volume 97.7 fl (80-100); Mean Platelet Volume 10.9 fl (7.4-10.4); Monocytes Absolute Auto 0.6 K/mm3 (0.1-0.6); Monocytes Percent Auto 7.6 % (2.6-8.5); Neutrophils Absolute Auto 4.1 K/mm3 (1.3-6.7); Neutrophils Percent Auto 56.7 % (45.5-73.1); Platelet Count Result 241 k/mm3 (150-375); Red Blood Count 3.45 M/mm3 (4.6-6.20); Red Cell Distribution Width 13.2 % (11.5-14.5); White Blood Count 7.2 K/mm3 (4.5-10.0)
[2022-11-22 05:14] LABS: Alanine Aminotransferase 17 U/L (6-50); Albumin Level 3.6 g/dL (3.5-5.1); Alkaline Phosphatase 58 U/L (38-126); Anion Gap 2 mmol/L (8-16); Aspartate Amino Transferase 23 U/L (17-59); Bilirubin,Total 0.5 mg/dL (0.2-1.3); Blood Urea Nitrogen 30 mg/dL (9-20); Calcium 8.7 mg/dL (8.4-10.2); Carbon Dioxide 35 mmol/L (22-30); Chloride 99 mmol/L (98-107); Estimated CRCL calculation 82 ml/min; Estimated Glomerular Filt Rate 44; Glucose 105 mg/dL (65-110); Potassium 3.8 mmol/L (3.4-5.0); Sodium 136 mmol/L (137-145)
--- NOTE | 2022-11-22 06:31 | PM.PNPUL ---
Progress Note: A&P Assessment and Plan (1) Obesity hypoventilation syndrome: Code(s): E66.2 - Morbid (severe) obesity with alveolar hypoventilation Status: Chronic Assessment and Plan: This 42-year-old man with? history of morbid obesity (BMI 60.1), has chronic hypercapnic respiratory failure related to obesity hypoventilation syndrome. Patient presented with acute on chronic hypercapnic respiratory failure as his obesity hypoventilation has been untreated. Patient has been on noninvasive ventilatory support via BIPAP to correct hypercapnic respiratory acidosis. While on very high BiPAP pressures, his last arterial blood gases are now better, with nl Ph and lower PCO2. TSH on 11/15/2022 2.66 and free T4 on 11/22/2022 is 0.93, both normal. 11/21: ApneaLink last night on BiPAP 22/8, respiratory rate 18, FiO2 0.25 Average saturation 95%. Low saturation 78%. Time with saturation less than or equal to 88% was 1 minute. Oxygen desaturation index 38.4. home O2 assessment: Rest room air saturation 87%. Rest nasal cannula 1 L saturation 88%. Rest nasal cannula 2 L saturation 93%. Exercise nasal cannula 2 L saturation 90%. Patient requires 2 L with rest and with activity. Plan: Await approval of noninvasive ventilator for home use. Out of bed to chair, continue with incentive spirometry. Use BiPAP support p.r.n. during the day. Later in the day I was informed that his [employer] company [employer] can set him up with his home noninvasive ventilator and oxygen on discharge as early as tomorrow. Once he is to be discharged we will contact via [employer] and let them know. Shawn is the [employer] sales representative with phone numbers [phone] and [phone]. 11/22: Patient tells me he is breathing back to his baseline. He is walking and denies any cough, wheezing or shortness of breath. His saturations on 2 L are 99%. Patient wore the hospital BiPAP rate of 18, pressures 22/8 and 25% FiO2 overnight. He tolerated these settings well and said he did sleep but intermittently woke up. Our hospital will call [facility] [place] on a daily basis to see if there is a bed available and once there is a bed available and he is cleared to be discharged from our hospital then we should inform the [employer] company that he will be discharged so that they can set up his home noninvasive ventilator and supplemental oxygen. I discussed this plan with the bedside nurse. Plan: From a pulmonary perspective patient can be discharged on these pulmonary medications: Beta agonsit and inhaled corticosteroid that patient can not afford (Advair discus 250/50 at 1 puff BID, Advair HFA 230/21 at 1 puffs BID, Breo Ellipts 100/25 at 1 puff Q day, Dulera 200/5 at 1 puffs BID, or symbicort 160/4.5 at 2 puffs BID) Rescue albuterol 2 puffs q.4 hours p.r.n. shortness of breath or wheezing Oxygen 2 L at rest and 2 L with activity through via [employer] When he when he naps or sleeps home noninvasive ventilator with a trilogy and AVAPS-AE mode through [employer] with respiratory rate auto, tidal volume 530 mL, EPAP minimum 6, EPAP maximum 12, pressure support minimum 20, pressure support maximum 30, maximum pressure 40% and 1 L bleed in. Follow-up in the Pulmonary Clinic in 3-4 weeks. I gave him our business card and informed our fast br[employer] pouncer. Will follow with you. (2) Asthma: Code(s): J45.909 - Unspecified asthma, uncomplicated Status: Acute Assessment and Plan: The patient tells me he has asthma diagnosed approximately 15 years ago. He had no childhood asthma. He has intermittent rest shortness of breath, he has dyspnea on exertion and intermittently he will have wheezing. His triggers include activity, upper respiratory tract infections, dust. In 2016 when he was exposed to dust he had an exacerbation requiring 7 days of prednisone. He has been on a p.r.n. albuterol inhaler. I was informed yesterday that [facility] [employer] can set up his oxygen and home noninvasive ventilator on the day
[2022-11-22 07:34] LABS: NT Pro B Type Natriuretic Pept 141 pg/mL (19.9-100)
[2022-11-22 07:35] LABS: Free T4 Free Thyroxine 0.93 ng/mL (0.78-2.19)
[2022-11-22] MEDS: CIPROFLOXACIN HCL 0.3% OP SOLN 2.5 ML BTL 2 DROP EACH EYE ×5 (08:46→18:32)
[2022-11-22] MEDS: hydrALAZINE HCL 20 MG/ML VIAL 10 MG IV PUSH ×2 (08:46→12:56)
[2022-11-22] MEDS: PANTOPRAZOLE 40 MG TABLET PO ×2 (10:24→20:31)
[2022-11-22] MEDS: busPIRone HCL 10 MG TABLET PO ×2 (10:24→16:10)
[2022-11-22] MEDS: MULTIVITAMINS THERAPEUTIC TAB (*BKC) 1 TABLET PO (10:24)
[2022-11-22] MEDS: amLODIPine BESYLATE 5 MG TABLET 10 MG PO (10:24)
[2022-11-22] MEDS: GABAPENTIN 300 MG CAPSULE PO (10:24)
[2022-11-22] MEDS: LABETALOL HCL 100 MG TABLET 200 MG PO ×2 (10:24→20:31)
[2022-11-22] MEDS: SERTRALINE HCL 50 MG TABLET 150 MG PO (10:25)
[2022-11-22] MEDS: HEPARIN SODIUM 5,000 UNITS/ML VIAL 5000 UNITS SUB-Q ×2 (10:26→20:32)
[2022-11-22] MEDS: FLUTICASONE/SALMETEROL 230-21 MCG INHALER 1 PUFF INHALATION ×2 (12:09→21:13)
--- NOTE | 2022-11-22 12:16 | P.PNNP_ITS ---
Progress Note: A&P Assessment and Plan (1) ANIKET (acute kidney injury): Code(s): N17.9 - Acute kidney failure, unspecified Status: Acute Assessment and Plan: * acute kidney injury on top of chronic kidney disease. * evaluation to date: * renal ultrasound without obstruction * urine electrolytes prerenal * contrast exposure noted as well * urine eosinophils negative * CPK not done -- will reorder * follow-up on serologies * suspect etiology is a combination of dehydration plus ATN from the contrast exposure * Creatinine has dropped to about 1.7. This seems to be fairly close to his baseline * he is on no diuretics. * Intake/output is fairly equal (2) Stage 3a chronic kidney disease: Code(s): N18.31 - Chronic kidney disease, stage 3a Status: Chronic Assessment and Plan: * creatinine running around 1.4 - 1.7mg/dl about a year ago * thought to be secondary to hypertension, sleep apnea, substance abuse, and obesity (3) Hyperkalemia: Code(s): E87.5 - Hyperkalemia Status: Acute Assessment and Plan: * doing better * follow repeat levels (4) Pneumonia: Code(s): J18.9 - Pneumonia, unspecified organism Status: Acute Assessment and Plan: * suggestion by CXR * CT of chest with tree-in-bud opacities and centrilobular nodules, predominantly in the right upper lobe, consistent with small airways infectious process * he finished his course of antibiotics (5) Obesity hypoventilation syndrome: Code(s): E66.2 - Morbid (severe) obesity with alveolar hypoventilation Status: Chronic Assessment and Plan: * Pulmonary following * ABGs noted * on BiPAP support. RT is trying to get him set up for [facility] noninvasive ventilator as an outpatient (6) Essential (primary) hypertension: Code(s): I10 - Essential (primary) hypertension Status: Chronic Assessment and Plan: * systolic has risen since yesterday. Will give a dose of clonidine to get it down and see what the trend is overnight. * on amlodipine and labetalol * losartan on hold * follow trend of hemodynamics (7) Polysubstance abuse: Code(s): F19.10 - Other psychoactive substance abuse, uncomplicated Status: Chronic Assessment and Plan: * playing a role with #1(?) * supportive therapy Subjective Date/time seen: 11/22/22 12:16 Interval history: Kuldeep is feeling okay. He is lying in bed on a little bit of oxygen. Exam Narrative: General: large WD/WN male in NAD Heart: normal S1 and S2; no rub Lungs: clear anteriorly bu coarse at bases Abdomen: soft, nontender, nondistended, positive bowel sounds Extremities: no edema Skin: No rash Objective Data Vital Signs Vital Signs: Vital Signs - 24 hr 11/21/22 15:09 11/21/22 15:00 11/21/22 15:01 Temperature Pulse Rate 64 Respiratory Rate 18 Blood Pressure Pulse Oximetry 87 L 88 L Oxygen Delivery Room Air Nasal Cannula Oxygen Flow Rate 1 Fraction of Inspired Oxygen 11/21/22 15:02 11/21/22 15:06 11/21/22 15:15 Temperature Pulse Rate Respiratory Rate Blood Pressure Pulse Oximetry 93 90 94 Oxygen Delivery Nasal Cannula Nasal Cannul
--- NOTE | 2022-11-22 12:16 | PM.PNNEP ---
Progress Note: A&P Assessment and Plan (1) ANIKET (acute kidney injury): Code(s): N17.9 - Acute kidney failure, unspecified Status: Acute Assessment and Plan: acute kidney injury on top of chronic kidney disease. evaluation to date: renal ultrasound without obstruction urine electrolytes prerenal contrast exposure noted as well urine eosinophils negative CPK not done -- will reorder follow-up on serologies suspect etiology is a combination of dehydration plus ATN from the contrast exposure Creatinine has dropped to about 1.7. This seems to be fairly close to his baseline he is on no diuretics. Intake/output is fairly equal (2) Stage 3a chronic kidney disease: Code(s): N18.31 - Chronic kidney disease, stage 3a Status: Chronic Assessment and Plan: creatinine running around 1.4 - 1.7mg/dl about a year ago thought to be secondary to hypertension, sleep apnea, substance abuse, and obesity (3) Hyperkalemia: Code(s): E87.5 - Hyperkalemia Status: Acute Assessment and Plan: doing better follow repeat levels (4) Pneumonia: Code(s): J18.9 - Pneumonia, unspecified organism Status: Acute Assessment and Plan: suggestion by CXR CT of chest with tree-in-bud opacities and centrilobular nodules, predominantly in the right upper lobe, consistent with small airways infectious process he finished his course of antibiotics (5) Obesity hypoventilation syndrome: Code(s): E66.2 - Morbid (severe) obesity with alveolar hypoventilation Status: Chronic Assessment and Plan: Pulmonary following ABGs noted on BiPAP support. RT is trying to get him set up for [facility] noninvasive ventilator as an outpatient (6) Essential (primary) hypertension: Code(s): I10 - Essential (primary) hypertension Status: Chronic Assessment and Plan: systolic has risen since yesterday. Will give a dose of clonidine to get it down and see what the trend is overnight. on amlodipine and labetalol losartan on hold follow trend of hemodynamics (7) Polysubstance abuse: Code(s): F19.10 - Other psychoactive substance abuse, uncomplicated Status: Chronic Assessment and Plan: playing a role with #1(?) supportive therapy Subjective Date/time seen: 11/22/22 12:16 Interval history: Kuldeep is feeling okay. He is lying in bed on a little bit of oxygen. Exam Narrative: General: large WD/WN male in NAD Heart: normal S1 and S2; no rub Lungs: clear anteriorly bu coarse at bases Abdomen: soft, nontender, nondistended, positive bowel sounds Extremities: no edema Skin: No rash Objective Data Vital Signs Vital Signs: Vital Signs - 24 hr 11/21/22 15:09 11/21/22 15:00 11/21/22 15:01 Temperature Pulse Rate 64 Respiratory Rate 18 Blood Pressure Pulse Oximetry 87 L 88 L Oxygen Delivery Room Air Nasal Cannula Oxygen Flow Rate 1 Fraction of Inspired Oxygen 11/21/22 15:02 11/21/22 15:06 11/21/22 15:15 Temperature Pulse Rate Respiratory Rate Blood Pressure Pulse Oximetry 93 90 94 Oxygen Delivery Nasal Cannula Nasal Cannula Nasal Cannula Oxygen Flow Rate 2 2 2 Fraction of Inspired Oxygen 11/21/22 15:20 11/21/22 16:00 11/21/22 14:00 Temperature 98.0 F Pulse Rate 55 L 64 59 L Respiratory Rate 18 12 Blood Pressure 161/73 H Pulse Oximetry 98 Oxygen Delivery Oxygen Flow Rate Fraction of Inspired Oxygen 11/21/22 16:00 11/21/22 18:00 11/21/22 16:00 Temperature Pulse Rate 70 58 L Respiratory Rate Blood Pressure Pulse Oximetry 98 Oxygen Delivery Nasal Cannula Oxygen Flow Rate 3 Fraction of Inspired Oxygen 11/21/22 19:37 11/21/22 19:55 11/21/22 19:55 Temperature 97.1 F L Pulse Rate 77 65 Respiratory Rate 22 H 20 Blood Pressure 145/73 H Pulse Oximetry 95 95 Oxygen Del
[2022-11-22] MEDS: cloNIDine HCL 0.1 MG TABLET PO (12:58)
--- NOTE | 2022-11-22 14:55 | PM.IMPN ---
Progress Note: A&P Assessment and Plan (1) CKD (chronic kidney disease): Code(s): N18.9 - Chronic kidney disease, unspecified Status: Acute Assessment and Plan: Creatinine at baseline (2) Polysubstance abuse: Code(s): F19.10 - Other psychoactive substance abuse, uncomplicated Status: Chronic Assessment and Plan: patient undergoing rehab prior to admission (3) Obstructive sleep apnea syndrome: Code(s): G47.33 - Obstructive sleep apnea (adult) (pediatric) Status: Acute (4) Hyperkalemia: Code(s): E87.5 - Hyperkalemia Status: Acute Assessment and Plan: resolved (5) Facial swelling: Code(s): R22.0 - Localized swelling, mass and lump, head Status: Acute (6) Conjunctivitis, right eye: Code(s): H10.9 - Unspecified conjunctivitis Status: Acute Plan acute on chronic hypercapnic respiratory failure?10/ Pulmonology considers obesity hypoventilation syndrome Continue BIPAP and oxygen titration per Pulmonology Patient was at [place] getting treatment for substance abuse: opioids and alcohol. Await approval noninvasive ventilator for home use. Hyperkalemia resolved, Community-acquired pneumonia CT chest shows tree-in-bud opacities and centrilobular nodules predominantly in right upper lobe consistent with small airways infectious process.? Complicated course of rocephin Pulmonary congestion started Lasix 40mg bid, prior CXR showed cardiomagaly with pulm edema repeat CXR in the AM November 20 that shows minimal right basilar atelectasis otherwise clear lungs Discontinue Lasix Right eye conjunctivitis, right pupil dilation Per nurse report, patient was found right pupil dilated in past 2 days, patient also few itchy and somewhat painful of right eye Patient has congestion of right eye, some discharge Suspecting conjunctivitis But need to rule out acute intracranial issues CT head November shows no acute intracranial issues Start Cipro eyedrops 1-2 jobs every 2 hours for 2 days and q.4 hours for 5 days 11/21 right eye and resolves, no discharge, still some redness on the right on eye. PERRLA CTA of head unremarkable possible conjunctivitis Hypertension urgency Patient is on amlodipine 10 mg daily p.o., labetalol 200 mg q.12 hours p.o., received clonidine 0.1 mg once Patient is on hydralazine IV as needed with parameters Plan to discharge patient back to rehab center on trilogy pulmonology following DVT prophylaxis On heparin sq Subjective Date/time seen: 11/22/22 14:55 Interval history: Patient feels comfortable today, denies headache, eye pain, blurred vision, patient need BiPAP in the night. Blood pressure is not well controlled Exam Narrative: GENERAL: Well-developed, well-nourished, and in no acute distress. HEAD: Normocephalic, atraumatic. On BiPAP EYES: PERRLA, congestion of right eye, eOMI. ENT: Nares clear, no rhinorrhea or epistaxis.? Mucous membranes moist.? CHEST: Diminished breath sounds bilaterally no respiratory distress.? No wheezes rales or rhonchi HEART: Regular rate and rhythm.? No murmur heard.? Normal peripheral pulses. ABDOMEN: Soft, nontender, nondistended, normal active bowel sounds. EXTREMITIES: Normal range of motion.? Trace bilateral lower extremity edema SKIN: Warm, dry, no rash. NEURO:? Alert and oriented x3. Moving all 4 limbs purposefully. PSYCH: calm and cooperative Objective Data Vital Signs Vital Signs: Vital Signs - 24 hr 11/21/22 15:09 11/21/22 15:00 11/21/22 15:01 Temperature Pulse Rate 64 Respiratory Rate 18 Blood Pressure Pulse Oximetry 87 L 88 L Oxygen Delivery Room Air Nasal Cannula Oxygen Flow Rate 1 Fraction of Inspired Oxygen 11/21/22 15:02 11/21/22 15:06 11/21/22 15:15 Temperature Pulse Rate Respiratory Rate Blood Pressure Pulse Oximetry 93 90 94 Oxygen Delivery Nasal Cannula Nasal Cannula Nasal Cannu
[2022-11-22] MEDS: SALINE 0.65% NAS SOLN 44 ML BTL 1 SPRAY NASAL (16:10)
[2022-11-22] MEDS: MELATONIN 5 MG TABLET PO (22:28)
[2022-11-23] VITALS (17 sets, daily range): BP systolic 107–149; BP diastolic 58–73; PULSE 54–74; RESP 18–22; TEMP 36.1–37.1; O2SAT 96–100
[2022-11-23 04:55] LABS: Basophils Percent Auto 0.5 % (0.2-1.2); Eosinophils Absolute Auto 0.6 K/mm3 (0-0.3); Eosinophils Percent Auto 7.6 % (0-4.4); Hematocrit 34.1 % (42.0-52.0); Hemoglobin 10.6 g/dL (14.0-18.0); Immature Granulocyte Absolute 0.02 K/mm3 (0.00-0.031); Immature Granulocyte Percent A 0.3 % (0-0.5); Lymphocytes Absolute Auto 1.99 K/mm3 (0.9-3.2); Lymphocytes Percent Auto 26.5 % (18.3-44.2); Mean Corpuscular HGB Conc 31.1 g/dl (32-36); Mean Corpuscular Hemoglobin 30.2 pg (26-34); Mean Corpuscular Volume 97.2 fl (80-100); Mean Platelet Volume 10.7 fl (7.4-10.4); Monocytes Absolute Auto 0.6 K/mm3 (0.1-0.6); Monocytes Percent Auto 8.4 % (2.6-8.5); Neutrophils Absolute Auto 4.3 K/mm3 (1.3-6.7); Neutrophils Percent Auto 56.7 % (45.5-73.1); Platelet Count Result 241 k/mm3 (150-375); Red Blood Count 3.51 M/mm3 (4.6-6.20); Red Cell Distribution Width 13.2 % (11.5-14.5); White Blood Count 7.5 K/mm3 (4.5-10.0)
[2022-11-23 05:02] LABS: Alanine Aminotransferase 15 U/L (6-50); Albumin Level 3.4 g/dL (3.5-5.1); Alkaline Phosphatase 58 U/L (38-126); Anion Gap 3 mmol/L (8-16); Aspartate Amino Transferase 23 U/L (17-59); Bilirubin,Total 0.6 mg/dL (0.2-1.3); Blood Urea Nitrogen 25 mg/dL (9-20); Calcium 8.7 mg/dL (8.4-10.2); Carbon Dioxide 35 mmol/L (22-30); Chloride 99 mmol/L (98-107); Estimated CRCL calculation 87 ml/min; Estimated Glomerular Filt Rate 48; Glucose 111 mg/dL (65-110); Phosphorus 2.7 mg/dL (2.5-4.5); Potassium 3.7 mmol/L (3.4-5.0); Sodium 137 mmol/L (137-145)
[2022-11-23] MEDS: FLUTICASONE/SALMETEROL 230-21 MCG INHALER 1 PUFF INHALATION ×2 (08:35→19:41)
[2022-11-23] MEDS: CIPROFLOXACIN HCL 0.3% OP SOLN 2.5 ML BTL 2 DROP EACH EYE ×5 (08:39→23:12)
[2022-11-23] MEDS: GABAPENTIN 300 MG CAPSULE PO (08:39)
[2022-11-23] MEDS: amLODIPine BESYLATE 5 MG TABLET 10 MG PO (08:39)
[2022-11-23] MEDS: MULTIVITAMINS THERAPEUTIC TAB (*BKC) 1 TABLET PO (08:40)
[2022-11-23] MEDS: busPIRone HCL 10 MG TABLET PO ×2 (08:40→17:33)
[2022-11-23] MEDS: SERTRALINE HCL 50 MG TABLET 150 MG PO (08:40)
[2022-11-23] MEDS: HEPARIN SODIUM 5,000 UNITS/ML VIAL 5000 UNITS SUB-Q ×2 (08:40→20:40)
[2022-11-23] MEDS: LABETALOL HCL 100 MG TABLET 200 MG PO ×2 (08:40→20:38)
[2022-11-23] MEDS: PANTOPRAZOLE 40 MG TABLET PO ×2 (08:40→20:38)
--- NOTE | 2022-11-23 09:06 | PM.IMPN ---
Progress Note: A&P Assessment and Plan (1) CKD (chronic kidney disease): Code(s): N18.9 - Chronic kidney disease, unspecified Status: Acute Assessment and Plan: Creatinine at baseline (2) Polysubstance abuse: Code(s): F19.10 - Other psychoactive substance abuse, uncomplicated Status: Chronic Assessment and Plan: patient undergoing rehab prior to admission (3) Obstructive sleep apnea syndrome: Code(s): G47.33 - Obstructive sleep apnea (adult) (pediatric) Status: Acute (4) Hyperkalemia: Code(s): E87.5 - Hyperkalemia Status: Acute Assessment and Plan: resolved (5) Facial swelling: Code(s): R22.0 - Localized swelling, mass and lump, head Status: Acute (6) Conjunctivitis, right eye: Code(s): H10.9 - Unspecified conjunctivitis Status: Acute Plan acute on chronic hypercapnic respiratory failure?10/ Pulmonology considers obesity hypoventilation syndrome Continue BIPAP and oxygen titration per Pulmonology Patient was at [facility] getting treatment for substance abuse: opioids and alcohol. Await approval noninvasive ventilator for home use. Hyperkalemia resolved, Community-acquired pneumonia CT chest shows tree-in-bud opacities and centrilobular nodules predominantly in right upper lobe consistent with small airways infectious process.? Complicated course of rocephin Pulmonary congestion started Lasix 40mg bid, prior CXR showed cardiomagaly with pulm edema repeat CXR in the AM November 20 that shows minimal right basilar atelectasis otherwise clear lungs Discontinue Lasix Right eye conjunctivitis, right pupil dilation Per nurse report, patient was found right pupil dilated in past 2 days, patient also few itchy and somewhat painful of right eye Patient has congestion of right eye, some discharge Suspecting conjunctivitis But need to rule out acute intracranial issues CT head November shows no acute intracranial issues Start Cipro eyedrops 1-2 jobs every 2 hours for 2 days and q.4 hours for 5 days 11/21 right eye and resolves, no discharge, still some redness on the right on eye. PERRLA CTA of head unremarkable possible conjunctivitis Currently patient has no double vision, focal weakness, redness of right eye resolves Hypertension urgency Patient is on amlodipine 10 mg daily p.o., labetalol 200 mg q.12 hours p.o., received clonidine 0.1 mg once Patient is on hydralazine IV as needed with parameters 11/23 Blood pressure is well controlled Plan to discharge patient back to [facility] following DVT prophylaxis On heparin sq Subjective Date/time seen: 11/23/22 09:06 Interval history: I saw exam patient today. Patient feels comfortable, still need BiPAP in the night, denies head pain, double vision, focal weakness, chest pain, abdomen pain nausea vomiting diarrhea Exam Narrative: GENERAL: Well-developed, well-nourished, and in no acute distress. HEAD: Normocephalic, atraumatic. On BiPAP EYES: PERRLA, congestion of right eye, eOMI. ENT: Nares clear, no rhinorrhea or epistaxis.? Mucous membranes moist.? CHEST: Diminished breath sounds bilaterally no respiratory distress.? No wheezes rales or rhonchi HEART: Regular rate and rhythm.? No murmur heard.? Normal peripheral pulses. ABDOMEN: Soft, nontender, nondistended, normal active bowel sounds. EXTREMITIES: Normal range of motion.? Trace bilateral lower extremity edema SKIN: Warm, dry, no rash. NEURO:? Alert and oriented x3. Moving all 4 limbs purposefully. PSYCH: calm and cooperative Objective Data Vital Signs Vital Signs: Vital Signs - 24 hr 11/22/22 10:24 11/22/22 12:10 11/22/22 12:00 Temperature 98.5 F Pulse Rate 73 64 Respiratory Rate 22 H Blood Pressure 188/68 H Pulse Oximetry 100 100 Oxygen Delivery Nasal Cannula Oxygen Flow Rate 2 Fraction of Inspired Oxygen 11/22/22 15:04 11/22/22 10
--- NOTE | 2022-11-23 10:26 | PM.PNPUL ---
Progress Note: A&P Assessment and Plan (1) Obesity hypoventilation syndrome: Code(s): E66.2 - Morbid (severe) obesity with alveolar hypoventilation Status: Chronic Assessment and Plan: This 42-year-old man with? history of morbid obesity (BMI 60.1), has chronic hypercapnic respiratory failure related to obesity hypoventilation syndrome. Patient presented with acute on chronic hypercapnic respiratory failure as his obesity hypoventilation has been untreated. Patient has been on noninvasive ventilatory support via BIPAP to correct hypercapnic respiratory acidosis. While on very high BiPAP pressures, his last arterial blood gases are now better, with nl Ph and lower PCO2. TSH on 11/15/2022 2.66 and free T4 on 11/22/2022 is 0.93, both normal. 11/21: [facility] last night on BiPAP 22/8, respiratory rate 18, FiO2 0.25 Average saturation 95%. Low saturation 78%. Time with saturation less than or equal to 88% was 1 minute. Oxygen desaturation index 38.4. home O2 assessment: Rest room air saturation 87%. Rest nasal cannula 1 L saturation 88%. Rest nasal cannula 2 L saturation 93%. Exercise nasal cannula 2 L saturation 90%. Patient requires 2 L with rest and with activity. Plan: Await approval of noninvasive ventilator for home use. Out of bed to chair, continue with incentive spirometry. Use BiPAP support p.r.n. during the day. Later in the day I was informed that his [employer] company [employer] can set him up with his home noninvasive ventilator and oxygen on discharge as early as tomorrow. Once he is to be discharged we will contact via [employer] and let them know. Shawn is the [employer] phlebotomy services representative with phone numbers [phone] and [phone]. 11/22: Patient tells me he is breathing back to his baseline. He is walking and denies any cough, wheezing or shortness of breath. His saturations on 2 L are 99%. Patient wore the hospital BiPAP rate of 18, pressures 22/8 and 25% FiO2 overnight. He tolerated these settings well and said he did sleep but intermittently woke up. Our hospital will call [facility] on a daily basis to see if there is a bed available and once there is a bed available and he is cleared to be discharged from our hospital then we should inform the [employer] company that he will be discharged so that they can set up his home noninvasive ventilator and supplemental oxygen. I discussed this plan with the bedside nurse. 11/23: Patient tells me he is breathing back to his baseline. States he received the Advair 230-21 at 1 puff b.i.d. since yesterday and this is going well. No shortness of breath. Patient is ambulating in the room. Currently is saturations on 2 L nasal cannula her 99%. Creatinine 1.6. Diuresed 600 mL yesterday. Cumulative 2.2 L positive since admission. No wheezing on exam. I spoke with the pharmacy care coordinator today and yesterday she smoked with [facility] and a nurse will need to review the case to see if they can handle a patient on a noninvasive ventilator and oxygen throughout the day. The nurse was not there over the weekend and will review the case on 11/24/2022 to determine if the patient can qualify to go to [facility]. If the patient goes to [employer] he will need to cloth picker his prescriptions prior to going to [facility]. Plan: From a pulmonary perspective patient can be discharged on these pulmonary medications: Beta agonsit and inhaled corticosteroid that patient can not afford (Advair discus 250/50 at 1 puff BID, Advair HFA 230/21 at 1 puffs BID, Breo Ellipts 100/25 at 1 puff Q day, Dulera 200/5 at 1 puffs BID, or symbicort 160/4.5 at 2 puffs BID) Rescue albuterol 2 puffs q.4 hours p.r.n. shortness of breath or wheezing Oxygen 2 L at rest and 2 L with activity through [facility] When he when he naps or sleeps home noninvasive ventilator with a trilogy and AVAPS-AE mode through [facility] with respiratory rate auto, tidal volume 530 mL, EPAP minimum 6, EPAP maximum 12, pres
--- NOTE | 2022-11-23 13:23 | P.PNNP_ITS ---
Progress Note: A&P Assessment and Plan (1) ANIKET (acute kidney injury): Code(s): N17.9 - Acute kidney failure, unspecified Status: Acute Assessment and Plan: * acute kidney injury on top of chronic kidney disease. * evaluation to date: * renal ultrasound without obstruction * urine electrolytes prerenal * contrast exposure noted as well * urine eosinophils negative * CPK not done -- will reorder * follow-up on serologies * suspect etiology is a combination of dehydration plus ATN from the contrast exposure * creatinine is now 1.6. * He seems to have reached his baseline. (2) Stage 3a chronic kidney disease: Code(s): N18.31 - Chronic kidney disease, stage 3a Status: Chronic Assessment and Plan: * creatinine running around 1.4 - 1.7mg/dl about a year ago * thought to be secondary to hypertension, sleep apnea, substance abuse, and obesity (3) Hyperkalemia: Code(s): E87.5 - Hyperkalemia Status: Acute Assessment and Plan: * doing better * follow repeat levels (4) Pneumonia: Code(s): J18.9 - Pneumonia, unspecified organism Status: Acute Assessment and Plan: * He is done with his antibiotics. (5) Obesity hypoventilation syndrome: Code(s): E66.2 - Morbid (severe) obesity with alveolar hypoventilation Status: Chronic Assessment and Plan: * Pulmonary following * ABGs noted * on BiPAP support. RT is trying to get him set up for [facility] noninvasive ventilator as an outpatient (6) Essential (primary) hypertension: Code(s): I10 - Essential (primary) hypertension Status: Chronic Assessment and Plan: * systolic Is doing pretty well, ranging from 1 await to about 150. * on amlodipine and labetalol * losartan on hold * follow trend of hemodynamics * Consider restarting losartan down the line. (7) Polysubstance abuse: Code(s): F19.10 - Other psychoactive substance abuse, uncomplicated Status: Chronic Assessment and Plan: * playing a role with #1(?) * supportive therapy Subjective Date/time seen: 11/23/22 13:23 Interval history: Patient feels okay. He is lying flat in bed. No shortness of breath. Exam Narrative: General: large WD/WN male in NAD Heart: normal S1 and S2; no rub or gallop Lungs: clear anteriorly bu coarse at bases Abdomen: soft, nontender, nondistended, positive bowel sounds Extremities: no edema Skin: No rash Or subcu nodules Objective Data Vital Signs Vital Signs: Vital Signs - 24 hr 11/22/22 15:04 11/22/22 14:00 11/22/22 16:00 Temperature 97.6 F Pulse Rate 68 62 68 Respiratory Rate 24 H Blood Pressure 150/58 H Pulse Oximetry 97 Oxygen Delivery Oxygen Flow Rate Fraction of Inspired Oxygen 11/22/22 16:00 11/22/22 18:00 11/22/22 20:31 Temperature Pulse Rate 64 68 Respiratory Rate Blood Pressure Pulse Oximetry 97 Oxygen Delivery Nasal Cannula Oxygen Flow Rate 2 Fraction of Inspired Oxygen 11/22/22 20:34 11/22/22 20:00 11/22/22 21:10 Temperature 97.3 F L Pulse Rate 72 67 Respiratory Rate 20 Blood Press
--- NOTE | 2022-11-23 13:23 | PM.PNNEP ---
Progress Note: A&P Assessment and Plan (1) ANIKET (acute kidney injury): Code(s): N17.9 - Acute kidney failure, unspecified Status: Acute Assessment and Plan: acute kidney injury on top of chronic kidney disease. evaluation to date: renal ultrasound without obstruction urine electrolytes prerenal contrast exposure noted as well urine eosinophils negative CPK not done -- will reorder follow-up on serologies suspect etiology is a combination of dehydration plus ATN from the contrast exposure creatinine is now 1.6. He seems to have reached his baseline. (2) Stage 3a chronic kidney disease: Code(s): N18.31 - Chronic kidney disease, stage 3a Status: Chronic Assessment and Plan: creatinine running around 1.4 - 1.7mg/dl about a year ago thought to be secondary to hypertension, sleep apnea, substance abuse, and obesity (3) Hyperkalemia: Code(s): E87.5 - Hyperkalemia Status: Acute Assessment and Plan: doing better follow repeat levels (4) Pneumonia: Code(s): J18.9 - Pneumonia, unspecified organism Status: Acute Assessment and Plan: He is done with his antibiotics. (5) Obesity hypoventilation syndrome: Code(s): E66.2 - Morbid (severe) obesity with alveolar hypoventilation Status: Chronic Assessment and Plan: Pulmonary following ABGs noted on BiPAP support. RT is trying to get him set up for [facility] noninvasive ventilator as an outpatient (6) Essential (primary) hypertension: Code(s): I10 - Essential (primary) hypertension Status: Chronic Assessment and Plan: systolic Is doing pretty well, ranging from 1 await to about 150. on amlodipine and labetalol losartan on hold follow trend of hemodynamics Consider restarting losartan down the line. (7) Polysubstance abuse: Code(s): F19.10 - Other psychoactive substance abuse, uncomplicated Status: Chronic Assessment and Plan: playing a role with #1(?) supportive therapy Subjective Date/time seen: 11/23/22 13:23 Interval history: Patient feels okay. He is lying flat in bed. No shortness of breath. Exam Narrative: General: large WD/WN male in NAD Heart: normal S1 and S2; no rub or gallop Lungs: clear anteriorly bu coarse at bases Abdomen: soft, nontender, nondistended, positive bowel sounds Extremities: no edema Skin: No rash Or subcu nodules Objective Data Vital Signs Vital Signs: Vital Signs - 24 hr 11/22/22 15:04 11/22/22 14:00 11/22/22 16:00 Temperature 97.6 F Pulse Rate 68 62 68 Respiratory Rate 24 H Blood Pressure 150/58 H Pulse Oximetry 97 Oxygen Delivery Oxygen Flow Rate Fraction of Inspired Oxygen 11/22/22 16:00 11/22/22 18:00 11/22/22 20:31 Temperature Pulse Rate 64 68 Respiratory Rate Blood Pressure Pulse Oximetry 97 Oxygen Delivery Nasal Cannula Oxygen Flow Rate 2 Fraction of Inspired Oxygen 11/22/22 20:34 11/22/22 20:00 11/22/22 21:10 Temperature 97.3 F L Pulse Rate 72 67 Respiratory Rate 20 Blood Pressure 137/69 Pulse Oximetry 99 98 99 Oxygen Delivery Nasal Cannula Nasal Cannula Oxygen Flow Rate 2 2 Fraction of Inspired Oxygen 11/22/22 20:00 11/22/22 23:22 11/22/22 22:00 Temperature 97.3 F L Pulse Rate 72 68 62 Respiratory Rate 18 Blood Pressure 108/49 L Pulse Oximetry 99 Oxygen Delivery Oxygen Flow Rate Fraction of Inspired Oxygen 11/23/22 00:00 11/23/22 00:00 11/22/22 22:10 Temperature Pulse Rate 60 56 L Respiratory Rate 19 Blood Pressure Pulse Oximetry 99 Oxygen Delivery BiPAP BiPAP Oxygen Flow Rate Fraction of Inspired Oxygen 11/23/22 02:00 11/23/22 04:25 11/23/22 04:00 Temperature 97.3 F L Pulse Rate 55 L 61 62 Respiratory Rate 22 H Blood Pressure 149/73 H Pulse Oximetry 97 Oxygen Delivery
--- NOTE | 2022-11-23 16:31 | PC.NURSE ---
Addendum entered by Cecilia Carmona RN 11/23/22 19:09: Correction: pt was transferred to [id number] at 1845. Original Note: This patient, Kuldeep Torres, was transferred to [id number] on 11/23/22 at 1630. Personal belongings sent with patient. Report given to PADMA Calderón. Appropriate documentation sent with patient.
[2022-11-23] MEDS: MELATONIN 5 MG TABLET PO (20:38)
[2022-11-24] VITALS (14 sets, daily range): BP systolic 127–145; BP diastolic 67–75; PULSE 57–70; RESP 18–22; TEMP 36.5–37.1; O2SAT 95–99
[2022-11-24] MEDS: CIPROFLOXACIN HCL 0.3% OP SOLN 2.5 ML BTL 2 DROP EACH EYE ×6 (04:19→23:17)
[2022-11-24 06:14] LABS: Basophils Absolute Auto 0.1 K/mm3 (0.0-0.1); Basophils Percent Auto 0.7 % (0.2-1.2); Eosinophils Absolute Auto 0.6 K/mm3 (0-0.3); Eosinophils Percent Auto 8.3 % (0-4.4); Hematocrit 34.5 % (42.0-52.0); Hemoglobin 10.4 g/dL (14.0-18.0); Immature Granulocyte Absolute 0.03 K/mm3 (0.00-0.031); Immature Granulocyte Percent A 0.4 % (0-0.5); Lymphocytes Absolute Auto 2.13 K/mm3 (0.9-3.2); Lymphocytes Percent Auto 28.4 % (18.3-44.2); Mean Corpuscular HGB Conc 30.1 g/dl (32-36); Mean Corpuscular Hemoglobin 29.8 pg (26-34); Mean Corpuscular Volume 98.9 fl (80-100); Mean Platelet Volume 11.2 fl (7.4-10.4); Monocytes Absolute Auto 0.7 K/mm3 (0.1-0.6); Monocytes Percent Auto 9.1 % (2.6-8.5); Neutrophils Percent Auto 53.1 % (45.5-73.1); Platelet Count Result 215 k/mm3 (150-375); Red Blood Count 3.49 M/mm3 (4.6-6.20); Red Cell Distribution Width 13.2 % (11.5-14.5); White Blood Count 7.5 K/mm3 (4.5-10.0)
[2022-11-24 06:29] LABS: Alanine Aminotransferase 14 U/L (6-50); Albumin Level 3.7 g/dL (3.5-5.1); Alkaline Phosphatase 57 U/L (38-126); Anion Gap 1 mmol/L (8-16); Aspartate Amino Transferase 24 U/L (17-59); Bilirubin,Total 0.5 mg/dL (0.2-1.3); Blood Urea Nitrogen 22 mg/dL (9-20); Calcium 8.8 mg/dL (8.4-10.2); Carbon Dioxide 37 mmol/L (22-30); Chloride 100 mmol/L (98-107); Estimated CRCL calculation 87 ml/min; Estimated Glomerular Filt Rate 48; Glucose 101 mg/dL (65-110); Phosphorus 2.9 mg/dL (2.5-4.5); Sodium 138 mmol/L (137-145)
[2022-11-24] MEDS: FLUTICASONE/SALMETEROL 230-21 MCG INHALER 1 PUFF INHALATION ×2 (07:09→20:05)
[2022-11-24] MEDS: busPIRone HCL 10 MG TABLET PO ×2 (08:51→17:00)
[2022-11-24] MEDS: GABAPENTIN 300 MG CAPSULE PO (08:51)
[2022-11-24] MEDS: amLODIPine BESYLATE 5 MG TABLET 10 MG PO (08:51)
[2022-11-24] MEDS: SERTRALINE HCL 50 MG TABLET 150 MG PO (08:51)
[2022-11-24] MEDS: PANTOPRAZOLE 40 MG TABLET PO ×2 (08:51→20:42)
[2022-11-24] MEDS: MULTIVITAMINS THERAPEUTIC TAB (*BKC) 1 TABLET PO (08:51)
[2022-11-24] MEDS: LABETALOL HCL 100 MG TABLET 200 MG PO ×2 (08:53→20:41)
[2022-11-24] MEDS: HEPARIN SODIUM 5,000 UNITS/ML VIAL 5000 UNITS SUB-Q ×2 (08:53→20:41)
--- NOTE | 2022-11-24 08:58 | PM.IMPN ---
Progress Note: A&P Assessment and Plan (1) CKD (chronic kidney disease): Code(s): N18.9 - Chronic kidney disease, unspecified Status: Acute Assessment and Plan: Creatinine at baseline (2) Polysubstance abuse: Code(s): F19.10 - Other psychoactive substance abuse, uncomplicated Status: Chronic Assessment and Plan: patient undergoing rehab prior to admission (3) Obstructive sleep apnea syndrome: Code(s): G47.33 - Obstructive sleep apnea (adult) (pediatric) Status: Acute (4) Hyperkalemia: Code(s): E87.5 - Hyperkalemia Status: Acute Assessment and Plan: resolved (5) Facial swelling: Code(s): R22.0 - Localized swelling, mass and lump, head Status: Acute (6) Conjunctivitis, right eye: Code(s): H10.9 - Unspecified conjunctivitis Status: Acute Plan acute on chronic hypercapnic respiratory failure?10/ Pulmonology considers obesity hypoventilation syndrome Continue BIPAP and oxygen titration per Pulmonology Patient was at [facility] getting treatment for substance abuse: opioids and alcohol. Await for placement and will have noninvasive ventilator for home use. Hyperkalemia resolved, Community-acquired pneumonia CT chest shows tree-in-bud opacities and centrilobular nodules predominantly in right upper lobe consistent with small airways infectious process.? Complicated course of rocephin Pulmonary congestion started Lasix 40mg bid, prior CXR showed cardiomagaly with pulm edema repeat CXR in the AM November 20 that shows minimal right basilar atelectasis otherwise clear lungs Discontinue Lasix Right eye conjunctivitis, right pupil dilation Per nurse report, patient was found right pupil dilated in past 2 days, patient also few itchy and somewhat painful of right eye Patient has congestion of right eye, some discharge Suspecting conjunctivitis But need to rule out acute intracranial issues CT head November shows no acute intracranial issues Start Cipro eyedrops 1-2 jobs every 2 hours for 2 days and q.4 hours for 5 days 11/21 right eye and resolves, no discharge, still some redness on the right on eye. PERRLA CTA of head unremarkable possible conjunctivitis Currently patient has no double vision, focal weakness, redness of right eye resolves Hypertension urgency Patient is on amlodipine 10 mg daily p.o., labetalol 200 mg q.12 hours p.o., received clonidine 0.1 mg once Patient is on hydralazine IV as needed with parameters 11/23 Blood pressure is well controlled Plan to discharge patient back to rehab center [facility] pul[facility]ology following DVT prophylaxis On heparin sq Subjective Date/time seen: 11/24/22 08:58 Interval history: I saw exam patient today. Patient feels comfortable, denies head pain, double vision, focal weakness, chest pain, abdomen pain nausea vomiting diarrhea Exam Narrative: GENERAL: Well-developed, well-nourished, and in no acute distress. HEAD: Normocephalic, atraumatic. On BiPAP EYES: PERRLA, congestion of right eye, eOMI. ENT: Nares clear, no rhinorrhea or epistaxis.? Mucous membranes moist.? CHEST: Diminished breath sounds bilaterally no respiratory distress.? No wheezes rales or rhonchi HEART: Regular rate and rhythm.? No murmur heard.? Normal peripheral pulses. ABDOMEN: Soft, nontender, nondistended, normal active bowel sounds. EXTREMITIES: Normal range of motion.? Trace bilateral lower extremity edema SKIN: Warm, dry, no rash. NEURO:? Alert and oriented x3. Moving all 4 limbs purposefully. PSYCH: calm and cooperative Objective Data Vital Signs Vital Signs: Vital Signs - 24 hr 11/23/22 10:00 11/23/22 12:00 11/23/22 12:00 Temperature 97.6 F Pulse Rate 65 63 Respiratory Rate 18 Blood Pressure 148/73 H Pulse Oximetry 100 100 Oxygen Delivery Nasal Cannula Oxygen Flow Rate 2 11/23/22 12:00 11/23/22 15:32 11/23/22 14:00 Temperature 98.1 F Pul
[2022-11-24] MEDS: SALINE 0.65% NAS SOLN 44 ML BTL 1 SPRAY NASAL (09:01)
--- NOTE | 2022-11-24 09:11 | PM.PNPUL ---
Progress Note: A&P Assessment and Plan (1) Obesity hypoventilation syndrome: Code(s): E66.2 - Morbid (severe) obesity with alveolar hypoventilation Status: Chronic Assessment and Plan: This 42-year-old man with? history of morbid obesity (BMI 60.1), has chronic hypercapnic respiratory failure related to obesity hypoventilation syndrome. Patient presented with acute on chronic hypercapnic respiratory failure as his obesity hypoventilation has been untreated. Patient has been on noninvasive ventilatory support via BIPAP to correct hypercapnic respiratory acidosis. While on very high BiPAP pressures, his last arterial blood gases are now better, with nl Ph and lower PCO2. TSH on 11/15/2022 2.66 and free T4 on 11/22/2022 is 0.93, both normal. 11/21: [facility] last night on BiPAP 22/8, respiratory rate 18, FiO2 0.25 Average saturation 95%. Low saturation 78%. Time with saturation less than or equal to 88% was 1 minute. Oxygen desaturation index 38.4. home O2 assessment: Rest room air saturation 87%. Rest nasal cannula 1 L saturation 88%. Rest nasal cannula 2 L saturation 93%. Exercise nasal cannula 2 L saturation 90%. Patient requires 2 L with rest and with activity. Plan: Await approval of noninvasive ventilator for home use. Out of bed to chair, continue with incentive spirometry. Use BiPAP support p.r.n. during the day. Later in the day I was informed that his [employer] company [employer] can set him up with his home noninvasive ventilator and oxygen on discharge as early as tomorrow. Once he is to be discharged we will contact via [employer] and let them know. Shawn is the [employer] account executive sales representative with phone numbers [phone] and [phone]. 11/22: Patient tells me he is breathing back to his baseline. He is walking and denies any cough, wheezing or shortness of breath. His saturations on 2 L are 99%. Patient wore the hospital BiPAP rate of 18, pressures 22/8 and 25% FiO2 overnight. He tolerated these settings well and said he did sleep but intermittently woke up. Our hospital will call [facility] on a daily basis to see if there is a bed available and once there is a bed available and he is cleared to be discharged from our hospital then we should inform the [employer] company that he will be discharged so that they can set up his home noninvasive ventilator and supplemental oxygen. I discussed this plan with the bedside nurse. 11/23: Patient tells me he is breathing back to his baseline. States he received the Advair 230-21 at 1 puff b.i.d. since yesterday and this is going well. No shortness of breath. Patient is ambulating in the room. Currently is saturations on 2 L nasal cannula her 99%. Creatinine 1.6. Diuresed 600 mL yesterday. Cumulative 2.2 L positive since admission. No wheezing on exam. I spoke with the career orientation teacher today and yesterday she smoked with [facility] and a nurse will need to review the case to see if they can handle a patient on a noninvasive ventilator and oxygen throughout the day. The nurse was not there over the weekend and will review the case on 11/24/2022 to determine if the patient can qualify to go to [facility]. If the patient goes to [facility] he will need to picking supervisor his prescriptions prior to going to [facility]. 11/24: Patient is breathing at his baseline. He is tolerating Advair 230-21 at 1 puff b.i.d.. He denies shortness of breath. He currently he is on 3 L nasal cannula saturations 99% and I decreased him to 2 L. creatinine is 1.6. Weight is 179.3 kg and he is +2.6 L since admission. Patient is awaiting placement. Plan: From a pulmonary perspective patient can be discharged on these pulmonary medications: Beta agonsit and inhaled corticosteroid that patient can not afford (Advair discus 250/50 at 1 puff BID, Advair HFA 230/21 at 1 puffs BID, Breo Ellipts 100/25 at 1 puff Q day, Dulera 200/5 at 1 puffs BID, or symbicort 160/4.5 at 2 puffs BID) Re
--- NOTE | 2022-11-24 11:54 | PM.PNNEP ---
Progress Note: A&P Assessment and Plan (1) ANIKET (acute kidney injury): Code(s): N17.9 - Acute kidney failure, unspecified Status: Acute Assessment and Plan: improvement noted evaluation to date: renal ultrasound without obstruction urine electrolytes prerenal contrast exposure noted as well urine eosinophils negative suspect etiology is a combination of dehydration plus ATN from the contrast exposure continue supportive therapy (2) Stage 3a chronic kidney disease: Code(s): N18.31 - Chronic kidney disease, stage 3a Status: Chronic Assessment and Plan: creatinine running around 1.4 - 1.7mg/dl about a year ago thought to be secondary to hypertension, sleep apnea, substance abuse, and obesity (3) Hyperkalemia: Code(s): E87.5 - Hyperkalemia Status: Acute Assessment and Plan: doing better follow repeat levels (4) Pneumonia: Code(s): J18.9 - Pneumonia, unspecified organism Status: Acute Assessment and Plan: completed course of antibiotics (5) Obesity hypoventilation syndrome: Code(s): E66.2 - Morbid (severe) obesity with alveolar hypoventilation Status: Chronic Assessment and Plan: Pulmonary following ABGs noted on BiPAP support at night supplemental O2 during the day diuretics PRN (6) Essential (primary) hypertension: Code(s): I10 - Essential (primary) hypertension Status: Chronic Assessment and Plan: reasonable control on amlodipine and labetalol losartan on hold -- consider restarting down the line follow trend of hemodynamics (7) Polysubstance abuse: Code(s): F19.10 - Other psychoactive substance abuse, uncomplicated Status: Chronic Assessment and Plan: playing a role with #1(?) supportive therapy Not much else to add -- will continue to follow intermittently.. Subjective Date/time seen: 11/24/22 11:54 Interval history: Follow-up for acute kidney injury/acute renal failure on chronic kidney disease. Renal function continues to improve/stablize as noted by trend of labs over the last few days; respiratory/breathing status appears to be doing reasonably well also; no issues/events overnight or earlier this morning; remains on supplemental oxygen with good oxygen saturations. Exam Narrative: General: large WD/WN male in NAD Heart: normal S1 and S2; no rub Lungs: clear anteriorly but coarse at bases Abdomen: soft, nontender, nondistended, positive bowel sounds Extremities: no edema Skin: Warm and dry Objective Data Vital Signs Vital Signs: Vital Signs Temp Pulse Resp BP Pulse Ox O2 Del Method O2 Flow Rate 11/24/22 11:30 95 Nasal Cannula 1 11/24/22 08:50 98 Nasal Cannula 2 11/24/22 08:53 60 11/24/22 07:10 57 L 18 11/24/22 07:10 57 L 18 97 Nasal Cannula 3 11/24/22 04:17 97.7 F 61 20 127/71 99 11/24/22 02:07 69 21 H 99 BiPAP 11/23/22 22:47 65 20 98 BiPAP 11/23/22 20:35 97 F L 54 L 20 113/66 100 11/23/22 19:41 98 Nasal Cannula 2 11/23/22 19:40 65 20 11/23/22 18:49 98.8 F 62 20 119/58 L 100 Intake/Output Intake/Output: Intake & Output 11/21/22 11/22/22 11/23/22 11/24/22 23:59 23:59 23:59 23:59 Intake Total 920 1465 2490 622 Output Total 2100 2050 2450 825 Balance -6337 -421 40 -203 Meds/Results Medications: Active Medications Generic Name Dose Route Start Last Admin Trade Name Freq PRN Reason Stop Dose Admin Acetaminophen 1,000 mg 11/14/22 11:45 11/14/22 11:59 Acetaminophen 500 Mg Tablet PO 1,000 mg Q8HR PRN Administration Mild Pain (1-3) or Fever Albuterol 2.5 mg 11/22/22 09:04 Albuterol Sulfate Neb 2.5 Mg/3 Ml Inh INHALATION Q4HRT PRN Wheezing Amlodipine Besylate 10 mg 11/13/22 09:00 11/24/22 08:51 Amlodipine Besylate 5 Mg Tablet PO 10 mg [facility]
--- NOTE | 2022-11-24 11:54 | P.PNNP_ITS ---
Progress Note: A&P Assessment and Plan (1) ANIKET (acute kidney injury): Code(s): N17.9 - Acute kidney failure, unspecified Status: Acute Assessment and Plan: * improvement noted * evaluation to date: * renal ultrasound without obstruction * urine electrolytes prerenal * contrast exposure noted as well * urine eosinophils negative * suspect etiology is a combination of dehydration plus ATN from the contrast exposure * continue supportive therapy (2) Stage 3a chronic kidney disease: Code(s): N18.31 - Chronic kidney disease, stage 3a Status: Chronic Assessment and Plan: * creatinine running around 1.4 - 1.7mg/dl about a year ago * thought to be secondary to hypertension, sleep apnea, substance abuse, and obesity (3) Hyperkalemia: Code(s): E87.5 - Hyperkalemia Status: Acute Assessment and Plan: * doing better * follow repeat levels (4) Pneumonia: Code(s): J18.9 - Pneumonia, unspecified organism Status: Acute Assessment and Plan: * completed course of antibiotics (5) Obesity hypoventilation syndrome: Code(s): E66.2 - Morbid (severe) obesity with alveolar hypoventilation Status: Chronic Assessment and Plan: * Pulmonary following * ABGs noted * on BiPAP support at night * supplemental O2 during the day * diuretics PRN (6) Essential (primary) hypertension: Code(s): I10 - Essential (primary) hypertension Status: Chronic Assessment and Plan: * reasonable control * on amlodipine and labetalol * losartan on hold -- consider restarting down the line * follow trend of hemodynamics (7) Polysubstance abuse: Code(s): F19.10 - Other psychoactive substance abuse, uncomplicated Status: Chronic Assessment and Plan: * playing a role with #1(?) * supportive therapy Not much else to add -- will continue to follow intermittently.. Subjective Date/time seen: 11/24/22 11:54 Interval history: Follow-up for acute kidney injury/acute renal failure on chronic kidney disease. Renal function continues to improve/stablize as noted by trend of labs over the last few days; respiratory/breathing status appears to be doing reasonably well also; no issues/events overnight or earlier this morning; remains on supplemental oxygen with good oxygen saturations. Exam Narrative: General: large WD/WN male in NAD Heart: normal S1 and S2; no rub Lungs: clear anteriorly but coarse at bases Abdomen: soft, nontender, nondistended, positive bowel sounds Extremities: no edema Skin: Warm and dry Objective Data Vital Signs Vital Signs: Vital Signs Temp Pulse Resp BP Pulse Ox O2 Del Method O2 Flow Rate 11/24/22 11:30 95 Nasal Cannula 1 11/24/22 08:50 98 Nasal Cannula 2 11/24/22 08:53 60 11/24/22 07:10 57 L 18 11/24/22 07:10 57 L 18 97 Nasal Cannula 3 11/24/22 04:17 97.7 F 61 20 127/71 99 11/24/22 02:07 69 21 H 99 BiPAP 11/23/22 22:47 65 20 98 BiPAP 11/23/22 20:35 97 F L 54 L 20 113/66 100 11/23/22 19:41 98 Nasal Cannula 2 11/23/22 19:40 65 20 11/23/22 18:49 98.8 F 62 20 119/58 L 100 Intake/Output Intake/Output:
[2022-11-24] MEDS: MELATONIN 5 MG TABLET PO (23:17)
[2022-11-25] VITALS (12 sets, daily range): BP systolic 139–155; BP diastolic 72–96; PULSE 62–65; RESP 18–24; TEMP 36.4–37; O2SAT 95–100
[2022-11-25 06:12] LABS: Basophils Percent Auto 0.6 % (0.2-1.2); Eosinophils Absolute Auto 0.5 K/mm3 (0-0.3); Eosinophils Percent Auto 6.3 % (0-4.4); Hematocrit 33.8 % (42.0-52.0); Hemoglobin 10.5 g/dL (14.0-18.0); Immature Granulocyte Absolute 0.02 K/mm3 (0.00-0.031); Immature Granulocyte Percent A 0.3 % (0-0.5); Lymphocytes Absolute Auto 2.06 K/mm3 (0.9-3.2); Lymphocytes Percent Auto 28.7 % (18.3-44.2); Mean Corpuscular HGB Conc 31.1 g/dl (32-36); Mean Corpuscular Volume 96.6 fl (80-100); Mean Platelet Volume 10.6 fl (7.4-10.4); Monocytes Absolute Auto 0.6 K/mm3 (0.1-0.6); Monocytes Percent Auto 8.1 % (2.6-8.5); Platelet Count Result 229 k/mm3 (150-375); White Blood Count 7.2 K/mm3 (4.5-10.0)
[2022-11-25 06:26] LABS: Alanine Aminotransferase 14 U/L (6-50); Albumin Level 3.7 g/dL (3.5-5.1); Alkaline Phosphatase 55 U/L (38-126); Anion Gap 1 mmol/L (8-16); Aspartate Amino Transferase 25 U/L (17-59); Bilirubin,Total 0.5 mg/dL (0.2-1.3); Blood Urea Nitrogen 19 mg/dL (9-20); Carbon Dioxide 37 mmol/L (22-30); Chloride 102 mmol/L (98-107); Estimated CRCL calculation 86 ml/min; Estimated Glomerular Filt Rate 48; Glucose 109 mg/dL (65-110); Potassium 4.1 mmol/L (3.4-5.0); Sodium 140 mmol/L (137-145)
[2022-11-25] MEDS: FLUTICASONE/SALMETEROL 230-21 MCG INHALER 1 PUFF INHALATION ×2 (08:23→19:57)
--- NOTE | 2022-11-25 10:01 | PM.IMPN ---
Progress Note: A&P Assessment and Plan (1) CKD (chronic kidney disease): Code(s): N18.9 - Chronic kidney disease, unspecified Status: Acute Assessment and Plan: Creatinine at baseline (2) Polysubstance abuse: Code(s): F19.10 - Other psychoactive substance abuse, uncomplicated Status: Chronic Assessment and Plan: patient undergoing rehab prior to admission (3) Obstructive sleep apnea syndrome: Code(s): G47.33 - Obstructive sleep apnea (adult) (pediatric) Status: Acute (4) Hyperkalemia: Code(s): E87.5 - Hyperkalemia Status: Acute Assessment and Plan: resolved (5) Facial swelling: Code(s): R22.0 - Localized swelling, mass and lump, head Status: Acute (6) Conjunctivitis, right eye: Code(s): H10.9 - Unspecified conjunctivitis Status: Acute Plan acute on chronic hypercapnic respiratory failure?10/ Pulmonology considers obesity hypoventilation syndrome Continue BIPAP and oxygen titration per Pulmonology Patient was at [facility] getting treatment for substance abuse: opioids and alcohol. Await for placement and will have noninvasive ventilator for home use. Hyperkalemia resolved, Community-acquired pneumonia CT chest shows tree-in-bud opacities and centrilobular nodules predominantly in right upper lobe consistent with small airways infectious process.? Complicated course of rocephin Pulmonary congestion started Lasix 40mg bid, prior CXR showed cardiomagaly with pulm edema repeat CXR in the AM November 20 that shows minimal right basilar atelectasis otherwise clear lungs Discontinue Lasix Right eye conjunctivitis, right pupil dilation Per nurse report, patient was found right pupil dilated in past 2 days, patient also few itchy and somewhat painful of right eye Patient has congestion of right eye, some discharge Suspecting conjunctivitis But need to rule out acute intracranial issues CT head November shows no acute intracranial issues Start Cipro eyedrops 1-2 jobs every 2 hours for 2 days and q.4 hours for 5 days 11/21 right eye and resolves, no discharge, still some redness on the right on eye. PERRLA CTA of head unremarkable Possible conjunctivitis Currently patient has no double vision, focal weakness, redness of right eye resolves Hypertension urgency Patient is on amlodipine 10 mg daily p.o., labetalol 200 mg q.12 hours p.o., received clonidine 0.1 mg once Patient is on hydralazine IV as needed with parameters 11/25 Blood pressure is well controlled. Continue current medication Plan to discharge patient back to rehab center on [facility] today pulmonology following DVT prophylaxis On heparin sq Subjective Date/time seen: 11/25/22 10:01 Interval history: I saw on exam patient today, patient feels better today, patient is off oxygen during the day. Need BiPAP in the night. Patient denies chest pain, cough, abdomen pain, nausea vomiting diarrhea dysuria headache a focal weakness Exam Narrative: GENERAL: Well-developed, well-nourished, and in no acute distress. Morbidly obese HEAD: Normocephalic, atraumatic. On BiPAP EYES: PERRLA, congestion of right eye, eOMI. ENT: Nares clear, no rhinorrhea or epistaxis.? Mucous membranes moist.? CHEST: Diminished breath sounds bilaterally no respiratory distress.? No wheezes rales or rhonchi HEART: Regular rate and rhythm.? No murmur heard.? Normal peripheral pulses. ABDOMEN: Soft, nontender, nondistended, normal active bowel sounds. EXTREMITIES: Normal range of motion.? Trace bilateral lower extremity edema SKIN: Warm, dry, no rash. NEURO:? Alert and oriented x3. Moving all 4 limbs purposefully. PSYCH: calm and cooperative Objective Data Vital Signs Vital Signs: Vital Signs - 24 hr 11/24/22 12:00 11/24/22 14:00 11/24/22 12:15 Temperature 98.7 F Pulse Rate 62 Respiratory Rate 20 Blood Pressure 145/67 H Pulse Oximetry 95 95 95 Oxygen
[2022-11-25] MEDS: amLODIPine BESYLATE 5 MG TABLET 10 MG PO (10:45)
[2022-11-25] MEDS: busPIRone HCL 10 MG TABLET PO ×2 (10:45→17:54)
[2022-11-25] MEDS: CIPROFLOXACIN HCL 0.3% OP SOLN 2.5 ML BTL 2 DROP EACH EYE ×5 (10:45→23:55)
[2022-11-25] MEDS: GABAPENTIN 300 MG CAPSULE PO (10:45)
[2022-11-25] MEDS: SERTRALINE HCL 50 MG TABLET 150 MG PO (10:46)
[2022-11-25] MEDS: PANTOPRAZOLE 40 MG TABLET PO ×2 (10:46→20:03)
[2022-11-25] MEDS: HEPARIN SODIUM 5,000 UNITS/ML VIAL 5000 UNITS SUB-Q ×2 (10:46→20:03)
[2022-11-25] MEDS: MULTIVITAMINS THERAPEUTIC TAB (*BKC) 1 TABLET PO (10:46)
[2022-11-25] MEDS: LABETALOL HCL 100 MG TABLET 200 MG PO ×2 (10:46→20:03)
--- NOTE | 2022-11-25 13:08 | PM.DS ---
DS: Admitting Diagnosis Discharge Date 11/25/22 Admitting Diagnosis (1) CKD (chronic kidney disease): ?Code(s): N18.9 - Chronic kidney disease, unspecified ?Status:?Acute ?Assessment and Plan: Creatinine at baseline (2) Polysubstance abuse: ?Code(s): F19.10 - Other psychoactive substance abuse, uncomplicated ?Status:?Chronic ?Assessment and Plan: patient undergoing rehab prior to admission (3) Obstructive sleep apnea syndrome: ?Code(s): G47.33 - Obstructive sleep apnea (adult) (pediatric) ?Status:?Acute (4) Hyperkalemia: ?Code(s): E87.5 - Hyperkalemia ?Status:?Acute ?Assessment and Plan: resolved (5) Facial swelling: ?Code(s): R22.0 - Localized swelling, mass and lump, head ?Status:?Acute (6) Conjunctivitis, right eye: ?Code(s): H10.9 - Unspecified conjunctivitis ?Status:?Acute DS: Discharge Diagnosis Discharge Diagnosis (1) CKD (chronic kidney disease): Code(s): N18.9 - Chronic kidney disease, unspecified Status: Acute Assessment and Plan: Creatinine at baseline (2) Polysubstance abuse: Code(s): F19.10 - Other psychoactive substance abuse, uncomplicated Status: Chronic Assessment and Plan: patient undergoing rehab prior to admission (3) Obstructive sleep apnea syndrome: Code(s): G47.33 - Obstructive sleep apnea (adult) (pediatric) Status: Acute (4) Hyperkalemia: Code(s): E87.5 - Hyperkalemia Status: Acute Assessment and Plan: resolved (5) Facial swelling: Code(s): R22.0 - Localized swelling, mass and lump, head Status: Acute (6) Conjunctivitis, right eye: Code(s): H10.9 - Unspecified conjunctivitis Status: Acute DS: Summary Hospital Course Hospital Course: Per [facility] H&P, 42-year-old male presents here facial swelling, somnolence, epistaxis ? With past medical history of polysubstance abuse, high blood pressure, untreated BRICE. Patient is currently being treated at [facility] for polysubstance abuse:? Opiates and alcohol.? He has been treated since last Thursday, 11/07.? Patient reports that they recently started him on Suboxone, 1st dose was yesterday evening.? Patient reports that he woke up in the middle of the night last night with a nose bleed from a bilateral nares. ? Some mild nausea after nose bleed and blood streaked phlegm. Has felt increasingly groggy since episode.? Also noted that he has facial swelling around his eyes upper cheeks.? ? Eyes are reddened with yellow to cream drainage.? He denies any itching, tenderness, vision changes to his eyes. He reports history of opiate abuse via pills, snorting, and IVDU (last IV use was years ago). Alcohol use is 1-2 fifths daily. The following medical issues have been addressed during hospitalization acute on chronic hypercapnic respiratory failure?10/ Pulmonology considers obesity hypoventilation syndrome Continue BIPAP and oxygen titration per Pulmonology Patient was at [facility] getting treatment for substance abuse: opioids and alcohol. Await for placement and will have noninvasive ventilator for home use. Hyperkalemia resolved, Community-acquired pneumonia CT chest shows tree-in-bud opacities and centrilobular nodules predominantly in right upper lobe consistent with small airways infectious process.? Complicated course of rocephin Pulmonary congestion started Lasix 40mg bid, prior CXR showed cardiomagaly with pulm edema repeat CXR in the AM November 20 that shows minimal right basilar atelectasis otherwise clear lungs Discontinue Lasix Right eye conjunctivitis, right pupil dilation Per nurse report, patient was found right pupil dilated in past 2 days, patient also few itchy and somewhat painful of right eye Patient has congestion of right eye, some discharge Suspecting conjunctivitis But need to rule out acute intracranial issues CT head November shows no acut
[2022-11-25] MEDS: MELATONIN 5 MG TABLET PO (23:54)
[2022-11-26 02:04] VITALS: PULSE 65; RESP 21; O2SAT 100
[2022-11-26 04:23] VITALS: BP 128/85; PULSE 58; RESP 21; TEMP 36.7; O2SAT 96
[2022-11-26] MEDS: CIPROFLOXACIN HCL 0.3% OP SOLN 2.5 ML BTL 2 DROP EACH EYE ×3 (04:24→12:36)
[2022-11-26 05:29] LABS: Basophils Percent Auto 0.6 % (0.2-1.2); Eosinophils Absolute Auto 0.4 K/mm3 (0-0.3); Eosinophils Percent Auto 5.4 % (0-4.4); Hemoglobin 10.3 g/dL (14.0-18.0); Immature Granulocyte Absolute 0.02 K/mm3 (0.00-0.031); Immature Granulocyte Percent A 0.3 % (0-0.5); Lymphocytes Absolute Auto 2.02 K/mm3 (0.9-3.2); Lymphocytes Percent Auto 28.1 % (18.3-44.2); Mean Corpuscular HGB Conc 30.3 g/dl (32-36); Mean Corpuscular Hemoglobin 29.6 pg (26-34); Mean Corpuscular Volume 97.7 fl (80-100); Mean Platelet Volume 10.7 fl (7.4-10.4); Monocytes Absolute Auto 0.7 K/mm3 (0.1-0.6); Neutrophils Percent Auto 55.6 % (45.5-73.1); Platelet Count Result 212 k/mm3 (150-375); Red Blood Count 3.48 M/mm3 (4.6-6.20); Red Cell Distribution Width 13.1 % (11.5-14.5); White Blood Count 7.2 K/mm3 (4.5-10.0)
[2022-11-26 05:41] LABS: Alanine Aminotransferase 14 U/L (6-50); Albumin Level 3.6 g/dL (3.5-5.1); Alkaline Phosphatase 57 U/L (38-126); Anion Gap 3 mmol/L (8-16); Aspartate Amino Transferase 26 U/L (17-59); Bilirubin,Total 0.6 mg/dL (0.2-1.3); Blood Urea Nitrogen 14 mg/dL (9-20); Calcium 8.6 mg/dL (8.4-10.2); Carbon Dioxide 32 mmol/L (22-30); Chloride 101 mmol/L (98-107); Estimated CRCL calculation 81 ml/min; Estimated Glomerular Filt Rate 44; Glucose 109 mg/dL (65-110); Potassium 3.9 mmol/L (3.4-5.0); Sodium 136 mmol/L (137-145)
[2022-11-26 08:30] VITALS: PULSE 61; O2SAT 98
[2022-11-26 08:32] VITALS: PULSE 61
[2022-11-26] MEDS: LABETALOL HCL 100 MG TABLET 200 MG PO (08:32)
[2022-11-26] MEDS: PANTOPRAZOLE 40 MG TABLET PO (08:32)
[2022-11-26] MEDS: amLODIPine BESYLATE 5 MG TABLET 10 MG PO (08:32)
[2022-11-26] MEDS: busPIRone HCL 10 MG TABLET PO (08:32)
[2022-11-26] MEDS: SERTRALINE HCL 50 MG TABLET 150 MG PO (08:32)
[2022-11-26] MEDS: MULTIVITAMINS THERAPEUTIC TAB (*BKC) 1 TABLET PO (08:33)
[2022-11-26] MEDS: GABAPENTIN 300 MG CAPSULE PO (08:33)
[2022-11-26] MEDS: FLUTICASONE/SALMETEROL 230-21 MCG INHALER 1 PUFF INHALATION (10:54)
[2022-11-26 10:55] VITALS: PULSE 75; RESP 18; O2SAT 95
[2022-11-26] MEDS: HEPARIN SODIUM 5,000 UNITS/ML VIAL 5000 UNITS SUB-Q (12:36)
--- NOTE | 2022-11-26 12:50 | PM.DS ---
DS: Admitting Diagnosis Discharge Date 11/26/2022 Admitting Diagnosis Epistaxis, Somnolence, Facial Swelling DS: Discharge Diagnosis Discharge Diagnosis (1) CKD (chronic kidney disease): Code(s): N18.9 - Chronic kidney disease, unspecified Status: Acute Assessment and Plan: Creatinine at baseline (2) Polysubstance abuse: Code(s): F19.10 - Other psychoactive substance abuse, uncomplicated Status: Chronic Assessment and Plan: patient undergoing rehab prior to admission (3) Obstructive sleep apnea syndrome: Code(s): G47.33 - Obstructive sleep apnea (adult) (pediatric) Status: Acute (4) Hyperkalemia: Code(s): E87.5 - Hyperkalemia Status: Acute Assessment and Plan: resolved (5) Facial swelling: Code(s): R22.0 - Localized swelling, mass and lump, head Status: Acute (6) Conjunctivitis, right eye: Code(s): H10.9 - Unspecified conjunctivitis Status: Acute Plan Acute on chronic hypercapnic respiratory failure?10/ Pulmonology considers obesity hypoventilation syndrome Continue BIPAP and oxygen titration per Pulmonology Patient was at [facility] getting treatment for substance abuse: opioids and alcohol. Await for placement and will have noninvasive ventilator for home use. Hyperkalemia resolved, Community-acquired pneumonia CT chest shows tree-in-bud opacities and centrilobular nodules predominantly in right upper lobe consistent with small airways infectious process.? Complicated course of rocephin Pulmonary congestion started Lasix 40mg bid, prior CXR showed cardiomagaly with pulm edema repeat CXR in the AM November 20 that shows minimal right basilar atelectasis otherwise clear lungs Discontinue Lasix Right eye conjunctivitis, right pupil dilation Per nurse report, patient was found right pupil dilated in past 2 days, patient also few itchy and somewhat painful of right eye Patient has congestion of right eye, some discharge Suspecting conjunctivitis But need to rule out acute intracranial issues CT head November shows no acute intracranial issues Start Cipro eyedrops 1-2 jobs every 2 hours for 2 days and q.4 hours for 5 days 11/21 right eye and resolves, no discharge, still some redness on the right on eye.? PERRLA CTA of head unremarkable Possible conjunctivitis Currently patient has no double vision, focal weakness, redness of right eye resolves Hypertension urgency Patient is on amlodipine 10 mg daily p.o., labetalol 200 mg q.12 hours p.o., received clonidine 0.1 mg once Patient is on hydralazine IV as needed with parameters 11/25 Blood pressure is well controlled.? Continue current medication Plan to discharge patient back to rehab center DS: Summary Hospital Course Hospital Course: 42-year-old male presents here facial swelling, somnolence, epistaxis ? With past medical history of polysubstance abuse, high blood pressure, untreated BRICE. Patient is currently being treated at [facility] for polysubstance abuse:? Opiates and alcohol.? He has been treated since last Thursday, 11/07.? Patient reports that they recently started him on Suboxone, 1st dose was yesterday evening.? Patient reports that he woke up in the middle of the night last night with a nose bleed from a bilateral nares. ? Some mild nausea after nose bleed and blood streaked phlegm. Has felt increasingly groggy since episode.? Also noted that he has facial swelling around his eyes upper cheeks.? ? Eyes are reddened with yellow to cream drainage.? He denies any itching, tenderness, vision changes to his eyes. He reports history of opiate abuse via pills, snorting, and IVDU (last IV use was years ago). Alcohol use is 1-2 fifths daily. Acute on chronic hypercapnic respiratory failure?10/ Pulmonology considers obesity hypoventilation syndrome Continue BIPAP and oxygen titration per Pulmonology Patient was at [facility] getting treatment for substance abuse: opi
== END 2022-11-26 13:50 | disposition other institution (70) | DRG 469 ==
LOC: ANHED 07:37 → ANHIMU 10:53 → ANH3MED 11-23 18:30
PROVIDERS: Chiropractor; Emergency Medicine; Family Medicine; Internal Medicine; Internal Medicine Nephrology; Internal Medicine Pulmonary Disease; Physician Assistant; Student in an Organized Health Care Education/Training Program; Admitting Provider Student in an Organized Health Care Education/Training Program; Emergency Provider Preventive Medicine Aerospace Medicine; PCP Family Medicine; Visit Provider Student in an Organized Health Care Education/Training Program
DX: N17.0 Acute kidney failure with tubular necrosis (principal); J96.20 Acute and chronic respiratory failure, unspecified whether with hypoxia or hypercapnia; J18.9 Pneumonia, unspecified organism; E87.20 Acidosis, unspecified; E66.2 Morbid (severe) obesity with alveolar hypoventilation; Z68.43 Body mass index [BMI] 50.0-59.9, adult; E86.0 Dehydration; E87.5 Hyperkalemia; I12.9 Hypertensive chronic kidney disease with stage 1 through stage 4 chronic kidney disease, or unspecified chronic kidney disease; R22.0 Localized swelling, mass and lump, head; T50.8X5A Adverse effect of diagnostic agents, initial encounter; N18.31 Chronic kidney disease, stage 3a; F32.9 Major depressive disorder, single episode, unspecified; R04.0 Epistaxis; F17.210 Nicotine dependence, cigarettes, uncomplicated; F19.10 Other psychoactive substance abuse, uncomplicated; J45.909 Unspecified asthma, uncomplicated; H57.02 Anisocoria; H10.31 Unspecified acute conjunctivitis, right eye; I16.0 Hypertensive urgency; Z20.822 Contact with and (suspected) exposure to COVID-19; F10.10 Alcohol abuse, uncomplicated; Z59.00 Homelessness unspecified
CPT/HCPCS: 36415; 36600; 70450; 70486; 70496; 70498; 71045; 71046; 71260; 76775; 80048; 80053; 80307; 81001; 81050; 82375; 82550; 82570; 82803; 82805; 83050; 83520; 83605; 83735; 83880; 83883; 84100; 84155; 84156; 84165; 84166; 84300; 84439; 84443; 84540; 85025; 85999; 86036; 86038; 86160; 86225; 87070; 87086; 87088; 87205; 87637; 93005; 94002; 94003; 94618; 94640; 94660; 94762; 96361; 96365; 96367; 96374; 96375; 99285; A9270; C9113; G0378; G0379; J0360; J0456; J0612; J0696; J1644; J1650; J1815; J1940; J2310; J2930; J7030; J7070; Q9967